=== PATIENT | female | born 1970 | race Caucasian/White ===

== ENCOUNTER → 2016-10-09 10:39 | Outpatient (CLI) | payer MEDICARE ==
[2014-09-08 09:57] VITALS: BMI 25.9
[~2016-10-09 10:39] MED LIST: BACTRIM DS TABL1 TAB PO; BIOTIN5 MG PO; COUMADIN7.5 MG PO; DILANTIN100 MG PO; K-DUR20 MEQ PO; KEPPRA500 MG PO; LASIX20 MG PO; MELATONIN 3 MG1 TAB; MORPHINE IMMEDI30 M1 PO; NEURONTIN 300300 MG PO; PHENOBARBITAL97.2 MG PO; Phenobarbital PO
== END | disposition home or self-care (01) ==
LOC: D.CT 10:39
DX: G43.009 Migraine without aura, not intractable, without status migrainosus (principal); G60.0 Hereditary motor and sensory neuropathy

== ENCOUNTER 2019-09-17 04:09 | Inpatient (IN) | payer OTHER, MEDICARE ==
[2019-09-17] VITALS (7 sets, daily range): BP systolic 97–129; BP diastolic 65–92
[~2019-09-17] VITALS: Ht 177.8 cm; Wt 65.8 kg
[2019-09-17] MEDS ORDERED: PHENOBARBITAL64.8 MG (04:25)
[2019-09-17] MEDS ORDERED: PHENOBARBITAL32.4 MG PO (04:25)
[2019-09-17] MEDS ORDERED: MORPHINE IMMEDI15 MG PO (04:26)
[2019-09-17] MEDS ORDERED: MORPHINE SULFAT30 M4 PO (04:26)
[2019-09-17] MEDS ORDERED: KEFLEX250 MG PO (04:28)
[2019-09-17] MEDS ORDERED: NYSTATIN100000 UN4 PO (04:28)
[2019-09-17] MEDS ORDERED: FUROSEMIDE20 MG PO (04:29)
[2019-09-17] MEDS ORDERED: K-DUR20 MEQ PO (04:30)
[2019-09-17 04:54] LABS: BASOPHILS 0.1 % (0-2); EOSINOPHILS 0.1 % (0-7); HEMATOCRIT 33.3 % (36.0-48.0); HEMOGLOBIN 10.7 g/dL (12-16); IMMATURE GRANULOCYTES 0.3 % (0-5); LYMPHOCYTES 13.5 % (15-50); MCH 38.2 pg (26.0-34.0); MCHC 32.1 g/dL (31.0-37.0); MCV 118.9 fL (80.0-100.0); MEAN PLATELET VOLUME 8.8 fL (7.4-10.4); MONOCYTES 4.3 % (2-11); NEUTROPHILS 81.7 % (40-80); RDW 14.5 % (11.5-14.5); WBC 8.7 10x3/uL (4.8-10.8)
[2019-09-17 05:05] LABS: CALC OSMOLALITY 277 mosm/kg (275-300); CALCIUM 8.1 mg/dL (8.5-10.1); CARBON DIOXIDE 32.8 mmol/L (21.0-32.0); CHLORIDE - SERUM 107 mmol/L (98-107); CREATININE - SERUM 0.5 mg/dL (0.6-1.3); GLUCOSE 94 mg/dL (74-106); PLATELET COUNT 340 10x3/uL (130-400); POTASSIUM - SERUM 3.4 mmol/L (3.5-5.1); SODIUM 140 mmol/L (136-145); UREA NITROGEN 9 mg/dL (7-18); eGFR NON AFRICAN AMERICAN > 90 mL/min (90-120)
[2019-09-17 05:06] LABS: APTT 25.3 SECONDS (22.8-39.4); INR 0.92 (0.85-1.17); PROTIME 12.3 SECONDS (11.6-15.0)
[2019-09-17 05:07] LABS: D-DIMER-QUANTITATIVE 1.53 ug/mLFEU (0.20-0.54)
[2019-09-17 05:19] LABS: ALBUMIN 1.6 g/dL (3.4-5.0); ALKALINE PHOSPHATASE 161 U/L (30-120); ALT (SGPT) 14 U/L (10-68); BILIRUBIN - TOTAL 0.49 mg/dL (0.2-1.3); CREATINE KINASE 36 UL (21-215); PRO BNP 1139 pg/mL (0-125); THYROID STIMULATING HORMONE 2.32 uIU/mL (0.36-3.74); TROPONIN-I 0.019 ng/mL (0.000-0.060)
[2019-09-17 05:28] LABS: C-REACTIVE PROTEIN < 0.2 mg/dL (0.0-0.9); LIPASE 30 U/L (73-393)
[2019-09-17 07:02] LABS: BILIRUBIN 2+ (NEGATIVE); KETONE SMALL mg/dL (NEGATIVE); NITRITE NEGATIVE (NEGATIVE)
[2019-09-17 07:03] LABS: BACTERIA FEW /hpf (NEGATIVE); RED CELLS - URINE 0-5 /hpf (0-5); WHITE CELLS - URINE 0-5 /hpf (NEGATIVE)
--- NOTE | 2019-09-17 08:07 | NUR ---
ARRIVES TO UNIT FROM ER PER STRETCHER, LETHARGIC, PRESENT FOR QUESTIONS, REVIEWED MED LIST, NS SET UP FOR 125 PER R HAND, CONT TO MONITOR
--- NOTE | 2019-09-17 11:20 | NUR ---
SPOKE WITH DR MATOS CONCERNING PT , ADVISED THAT HE IS NOT BELL MAKER BUT WILL SEE PT SUNDAY IF NEEDED, ASK ME TO DISCUSS KEPPRA INCREASE, EEG AND LAB RESULTS WITH ASHUTOSH
--- NOTE | 2019-09-17 12:00 | NUR ---
PT RESTING IN BED, DIFFICULT TO GET PT TO SWALLOW PILLS, CONCERNED THAT PT MAY HAVE HAD ANOTHER STROKE THIS AM, CT WAS DONE IN ER, ASHUTOSH AWARE
--- NOTE | 2019-09-17 16:30 | NUR ---
TAKEN TO MRI PER STRETCHER
--- NOTE | 2019-09-17 17:44 | NUR ---
PT IS A FEEDER IF NO FAMILY IS HERE
[2019-09-18] VITALS: BP 119/76
[2019-09-18 04:00] VITALS: BP 122/66
[2019-09-18 06:20] LABS: BASOPHILS 0.1 % (0-2); EOSINOPHILS 0.3 % (0-7); HEMATOCRIT 32.7 % (36.0-48.0); HEMOGLOBIN 10.6 g/dL (12-16); IMMATURE GRANULOCYTES 0.3 % (0-5); LYMPHOCYTES 28.4 % (15-50); MCH 38.5 pg (26.0-34.0); MCHC 32.4 g/dL (31.0-37.0); MCV 118.9 fL (80.0-100.0); NEUTROPHILS 65.9 % (40-80); PLATELET COUNT 350 10x3/uL (130-400); RBC 2.75 10x6/uL (4.00-5.40); RDW 14.5 % (11.5-14.5); WBC 10.7 10x3/uL (4.8-10.8)
--- NOTE | 2019-09-18 07:47 | NUR ---
I have reviewed this patient and I concur with the Shift Assessment completed by the Licensed Practical Nurse today this shift.
[2019-09-18 08:00] LABS: ALBUMIN 1.5 g/dL (3.4-5.0); ALKALINE PHOSPHATASE 152 U/L (30-120); ALT (SGPT) 11 U/L (10-68); BILIRUBIN - TOTAL 0.49 mg/dL (0.2-1.3); CALC OSMOLALITY 270 mosm/kg (275-300); CALCIUM 7.2 mg/dL (8.5-10.1); CARBON DIOXIDE 25.6 mmol/L (21.0-32.0); CHLORIDE - SERUM 104 mmol/L (98-107); CREATININE - SERUM 0.4 mg/dL (0.6-1.3); GLUCOSE 84 mg/dL (74-106); PROTEIN - SERUM 4.9 g/dL (6.4-8.2); SODIUM 137 mmol/L (136-145); UREA NITROGEN 8 mg/dL (7-18); eGFR NON AFRICAN AMERICAN > 90 mL/min (90-120)
[2019-09-18 08:03] LABS: POTASSIUM - SERUM 2.9 mmol/L (3.5-5.1)
[2019-09-18 09:36] VITALS: BP 142/68
[2019-09-18 12:51] VITALS: BP 126/84
[2019-09-18 12:58] VITALS: BMI 20.8
--- NOTE | 2019-09-18 14:30 | NUR ---
DID AN I & O CATH, GOT 600 CC.
[2019-09-18 15:49] LABS: BILIRUBIN NEGATIVE (NEGATIVE); KETONE NEGATIVE (NEGATIVE); NITRITE NEGATIVE (NEGATIVE); UROBILINOGEN NORMAL (NORMAL)
[2019-09-18 15:54] LABS: EPITHELIAL CELLS 0-5 /hpf (0-5); RED CELLS - URINE NONE SEEN /hpf (0-5); WHITE CELLS - URINE 0-5 /hpf (NEGATIVE)
[2019-09-18 15:55] LABS: BACTERIA MANY /hpf (NEGATIVE)
[2019-09-18 17:53] VITALS: BP 107/68
[2019-09-18 20:00] VITALS: BP 171/96
[2019-09-19] VITALS: BP 117/75
--- NOTE | 2019-09-19 00:30 | NUR ---
PT HAS NOT VOIDED SINCE IN/OUT CATH DONE @ 1430 TODAY. INSERTED 16FR HAMILTON CATHETER FOR URINART RETENTION. RECEIVED BACK 300+ CC'S CONCENTRATED URINE. PT INCONTINENT OF LIQUID BROWN STOOLS. GAVE PT BED BATH AND CHANGED GOWN/LINEN. REINFORCED DRESSING ON LLE AND RIGHT WRIST ABRASIONS THAT WERE COMING OFF. NO OTHER NEEDS. WILL CONTINUE TO MONITOR.
[2019-09-19 04:00] VITALS: BP 120/76
[2019-09-19 06:15] LABS: BASOPHILS 0.2 % (0-2); EOSINOPHILS 0.5 % (0-7); HEMATOCRIT 29.6 % (36.0-48.0); HEMOGLOBIN 9.6 g/dL (12-16); IMMATURE GRANULOCYTES 0.3 % (0-5); LYMPHOCYTES 23.1 % (15-50); MCH 38.4 pg (26.0-34.0); MCHC 32.4 g/dL (31.0-37.0); MCV 118.4 fL (80.0-100.0); MEAN PLATELET VOLUME 8.7 fL (7.4-10.4); NEUTROPHILS 70.9 % (40-80); PLATELET COUNT 297 10x3/uL (130-400); RDW 14.3 % (11.5-14.5)
[2019-09-19 06:31] LABS: WBC 6.2 10x3/uL (4.8-10.8)
[2019-09-19 06:38] LABS: ALBUMIN 1.3 g/dL (3.4-5.0); ALKALINE PHOSPHATASE 131 U/L (30-120); ALT (SGPT) 9 U/L (10-68); BILIRUBIN - TOTAL 0.41 mg/dL (0.2-1.3); CALC OSMOLALITY 277 mosm/kg (275-300); CARBON DIOXIDE 22.9 mmol/L (21.0-32.0); CHLORIDE - SERUM 110 mmol/L (98-107); CREATININE - SERUM 0.4 mg/dL (0.6-1.3); GLUCOSE 83 mg/dL (74-106); PROTEIN - SERUM 4.5 g/dL (6.4-8.2); SODIUM 141 mmol/L (136-145); UREA NITROGEN 6 mg/dL (7-18); eGFR NON AFRICAN AMERICAN > 90 mL/min (90-120)
[2019-09-19 09:43] VITALS: BP 122/80
--- NOTE | 2019-09-19 10:04 | NUR ---
Rehab Note- Acute Inpatient Rehab prescreen order received. The patient has [employer] insurance and will requie a PreAuth. She has pending PT, OT, & ST Evals. Will await evals & start PreAuth process at that time if appropriate for inpatient acute rehab. Will follow at this time. Thank you for this referral! Cyndy Smith RN Clinical Liaison, [facility] Rehab
--- NOTE | 2019-09-19 10:37 | MORECARE ---
CASE MANAGEMENT DISCHARGE SUMMARY PATIENT: KAVON GOLDSMITH UNIT: [id number] ADM DATE: 09/17/19 AGE: 48 : 70 SEX: F ROOM/BED: D.2205 AUTHOR: ROBERT MCCONNELL PHYSICIAN: REFERRING PHYSICIAN: MARLENE RIBERA MD DATE OF SERVICE: 09/19/19 Discharge Plan Patient Name: KAVON GOLDSMITH Facility: [facility]:[place] : 1970 Planned Disposition: Inpatient Rehab Anticipated Discharge Date: Discharge Date: Expected LOS: Initial Reviewer: [email or web address] Initial Review Date: 09/17/2019 Generated: 09/19/19 11:37 am Patient Name: KAVON GOLDSMITH Page [id number] at 1037 All edits/amendments must be made on the electronic document DICTATION DATE: 09/19/19 1037 WAREHOUSE DISTRIBUTION SPECIALIST: SOFI 09/19/19 [facility] RPT#: [id number] DC DATE: STATUS: ADM IN [facility] [address] [place] [address] END OF REPORT
--- NOTE | 2019-09-19 10:47 | MORECARE ---
CASE MANAGEMENT DISCHARGE SUMMARY PATIENT: KAVON GOLDSMITH UNIT: [id number] ADM DATE: 09/17/19 AGE: 48 : 70 SEX: F ROOM/BED: D.2205 AUTHOR: ROBERT MCCONNELL PHYSICIAN: REFERRING PHYSICIAN: MARLENE RIBERA MD DATE OF SERVICE: 09/19/19 Discharge Plan Patient Name: KAVON GOLDSMITH [facility] : 1970 Planned Disposition: Inpatient Rehab Anticipated Discharge Date: Discharge Date: Expected LOS: Initial Reviewer: [email or web address] Initial Review Date: 09/17/2019 Generated: 09/19/19 11:47 am DCPIA - Discharge Planning Initial Assessment Updated by [email or web address]: Ericka Espinosa on 09/19/19 10:37 am * Is the patient Alert and Oriented? Yes * How many steps to enter\exit or inside your home? * PCP JANNETH * Preadmission Environment Home Alone * ADLs Partial Dependent * Partial ADLs (Assistance needed) Ambulation Medication Management Toileting * Equipment Bedside Commode Grab Bars Power Chair or Electric Scooter Rolling Walker Shower Chair Walker Wheelchair * Other Equipment SERVICE DOG * List name and contact numbers for known caregivers / representatives who currently or will assist patient after discharge: BINU GOLDSMITH- [phone] * Verbal permission to speak to the caregivers and representatives has been obtained from the patient. Yes * Additional services required to return to the preadmission environment? Yes * Has this patient been hospitalized within the prior 30 days at any hospital? Yes Last DP export: 09/19/19 9:37 am Patient Name: KAVON GOLDSMITH Page [id number] at 1047 All edits/amendments must be made on the electronic document DICTATION DATE: 09/19/19 1047 PAIRING MACHINE OPERATOR: SOFI 09/19/19 1047 RPT#: [id number] DC DATE: STATUS: ADM IN [facility] [address] [place] [address] END OF REPORT
--- NOTE | 2019-09-19 11:05 | MORECARE ---
CASE MANAGEMENT DISCHARGE SUMMARY PATIENT: KAVON GOLDSMITH UNIT: [id number] ADM DATE: 09/17/19 AGE: 48 : 70 SEX: F ROOM/BED: D.2205 AUTHOR: ENEDINADOC PHYSICIAN: REFERRING PHYSICIAN: MARLENE RIBERA MD DATE OF SERVICE: 09/19/19 Discharge Plan Patient Name: KAVON GOLDSMITH Facility: [facility]:[place] : 1970 Planned Disposition: Inpatient Rehab Anticipated Discharge Date: Discharge Date: Expected LOS: Initial Reviewer: [email or web address] Initial Review Date: 09/17/2019 Generated: 09/19/19 12:04 pm Comments DCP- Discharge Planning Updated by [email or web address]: Ericka Espinosa on 09/19/19 10:[address] Patient Name: KAVON GOLDSMITH Admission Status: ER Accout number: [id number] Admission Date: 09-17-2019 : 1970 Admission Diagnosis: Attending: PETER Current LOS: 2 Anticipated DC Date: Planned Disposition: Inpatient Rehab Primary Insurance: [employer] Discharge Planning Comments: CM spoke with patients /ex- about discharge plan. He stated that they have built a 400x 12 ft cabin on her parents property where she can be independent with her care. She has a electric wheelchair, walker, scooter, service dog. Per her she started having seizures in 2013 after she had a stroke. He stated that her legs were very weak. He said that she did walk at home with her walker. He has made her cabin accessible for her with rails on her toilet. Her home address is [address] [place] [address] in [place] [address]. her cell number is [phone]. He would like her to go to inpatient rehab here at [facility]. He said he did not think that she would go to a care home home. He would like her to go to [facility] after inpatient rehab if needed. CM will speak to patient to see what her plan is. Binu was very helpful and seem like he is a good support system for her. Material Requirements Planning Manager: Ericka Espinosa DCPIA - Discharge Planning Initial Assessment Updated by [email or web address]: Ericka Espinosa on 09/19/19 10:37 am * Is the patient Alert and Oriented? Yes * How many steps to enter\exit or inside your home? * PCP JANNETH * Preadmission Environment Home Alone * ADLs Partial Dependent * Partial ADLs (Assistance needed) Ambulation Medication Management Toileting * Equipment Bedside Commode Grab Bars Power Chair or Electric Scooter Rolling Walker Shower Chair Walker Wheelchair * Other Equipment SERVICE DOG * List name and contact numbers for known caregivers / representatives who currently or will assist patient after discharge: BINU GOLDSMITH- [phone] * Verbal permission to speak to the caregivers and representatives has been obtained from the patient. Yes * Additional services required to return to the preadmission environment? Yes * Has this patient been hospitalized within the prior 30 days at any hospital? Yes Last DP export: 09/19/19 9:47 am Patient Name: KAVON GOLDSMITH Page [phone] at 1105 All edits/amendments must be made on the electronic document DICTATION DATE: 09/19/19 1104 PIPE CLEANING MACHINE OPERATOR: SOFI 09/19/19 1104 RPT#: [id number] DC DATE: STATUS: ADM IN [facility] [address] [place] [address] END OF REPORT
--- NOTE | 2019-09-19 12:27 | NUR ---
PATIENT IN BED RESTING. USES MOUTH SWABS NEEDED TO MOISTEN MOUTH. AT BEDSIDE. USING SUCTION NEEDED. DENIES PAIN OR NEEDS AT THIS TIME. BED LOW POSITION. CALL LIGHT IN REACH. WILL CONTINUE TO MONITOR.
[2019-09-19 13:29] VITALS: BP 133/85
--- NOTE | 2019-09-19 14:17 | NUR ---
16FRENCH NG TUBE PLACED PER MD ORDERS TO LEFT NARE. PLACEMENT MEASURED, KY PLACED TO TIP OF TUBE, TUBE MARKED. PLACEMENT CHECKED BELOW XYPHOID PROCESS WITH AIR, AIR HEARD. CONTACTED XRAY FOR PLACEMENT VERIFICATION OF NG TUBE. PT MACARIO WELL.
--- NOTE | 2019-09-19 14:45 | NUR ---
PATIENT TO MRI PROCEDURE VIA WHEELCHAIR.
--- NOTE | 2019-09-19 15:35 | NUR ---
PATIENT BACK TO UNIT VIA BED. TELEMETRY REATTATCHED. WILL CONTINUE TO MONITOR.
[2019-09-19 17:17] VITALS: BP 125/85
[2019-09-19 22:06] VITALS: BP 158/57
[2019-09-20] VITALS: BP 124/76
[2019-09-20 04:00] VITALS: BP 113/72
[2019-09-20 06:32] LABS: BASOPHILS 0.1 % (0-2); EOSINOPHILS 0.7 % (0-7); HEMATOCRIT 32.1 % (36.0-48.0); HEMOGLOBIN 10.1 g/dL (12-16); IMMATURE GRANULOCYTES 0.2 % (0-5); LYMPHOCYTES 17.1 % (15-50); MCH 38.3 pg (26.0-34.0); MCHC 31.5 g/dL (31.0-37.0); MEAN PLATELET VOLUME 8.8 fL (7.4-10.4); MONOCYTES 4.3 % (2-11); NEUTROPHILS 77.6 % (40-80); PLATELET COUNT 309 10x3/uL (130-400); RBC 2.64 10x6/uL (4.00-5.40); RDW 14.4 % (11.5-14.5)
[2019-09-20 06:51] LABS: MCV 121.6 fL (80.0-100.0); WBC 8.2 10x3/uL (4.8-10.8)
[2019-09-20 07:07] LABS: ALBUMIN 1.4 g/dL (3.4-5.0); ALKALINE PHOSPHATASE 138 U/L (30-120); ALT (SGPT) 10 U/L (10-68); BILIRUBIN - TOTAL 0.47 mg/dL (0.2-1.3); CALC OSMOLALITY 279 mosm/kg (275-300); CALCIUM 7.3 mg/dL (8.5-10.1); CARBON DIOXIDE 20.2 mmol/L (21.0-32.0); CHLORIDE - SERUM 112 mmol/L (98-107); CREATININE - SERUM 0.5 mg/dL (0.6-1.3); GLUCOSE 79 mg/dL (74-106); POTASSIUM - SERUM 3.1 mmol/L (3.5-5.1); PROTEIN - SERUM 4.6 g/dL (6.4-8.2); SODIUM 142 mmol/L (136-145); UREA NITROGEN 7 mg/dL (7-18); eGFR NON AFRICAN AMERICAN > 90 mL/min (90-120)
--- NOTE | 2019-09-20 08:45 | NUR ---
PT LAYING IN BED, EYES CLOSED, EVEN RESPIRATIONS. PIV IN RIGHT AC, PATENT, NO REDNESS OR SWELLING. NGT IN PLACE, PATENT. TELEMETRY IN PLACE, 100 SR. LEFT ARM WEAKNESS, BILAT TOE AMPUTATIONS. LOWER EXTREMITY BILAT ABRASIONS. RIGHT WRIST SKIN TEAR. HAMILTON IN PLACE, PATENT, SMALL AMOUNT OF OUTPUT, 100ML CONCENTRATED URINE. BED LOW, RAILS X2. CL IN REACH. WILL CONTINUE TO MONITOR.
[2019-09-20 09:49] VITALS: BP 113/79
[2019-09-20 11:09] LABS: CHOL - HDL RATIO 1.7 ratio (2.3-4.1); LDL-HDL RATIO 0.5 ratio (1.5-3.5)
--- NOTE | 2019-09-20 12:15 | NUR ---
PT SPOUSE ASKED NGT, EDUCATED PT AND SPOUSE ON NEED, VERBALIZED UNDRSTANDING.
[2019-09-20 13:58] VITALS: BP 119/53
--- NOTE | 2019-09-20 17:20 | NUR ---
CHANGED DRSG ON BILAT LOWER EXTREMITIES. WOUND BEDS RED WITH SMALL AMOUNT OF YELLOW GREENISH DISCHARGE. CLEANED WITH WOUND CLEANSER, APPLIED VASOLINE GAUZE AND 4X4. PT TOLERATED WELL. CL IN REACH, BED LOW. WILL CONTINUE TO MONITOR.
[2019-09-20 18:04] VITALS: BP 120/82
--- NOTE | 2019-09-20 20:00 | NUR ---
PT ALERT & ORIENTED. PT ASKED FOR MOISTENED ORAL SPONGES. PT COUGHED UP THICK YELLOWISH/CLEAR SPUTUM. SUCTIONED WITH YAUNKER. TURNED PT TO RIGHT SIDE. GAVE SCHEDULED MEDS. COMPLETE ASSESSMENT PER FLOW-SHEET. WILL CONTINUE TO MONITOR.
[2019-09-20 20:56] VITALS: BP 187/73
[2019-09-21 00:01] VITALS: BP 107/57
--- NOTE | 2019-09-21 03:30 | NUR ---
PT CALLED SUB PLANT MANAGER LIGHT. REQUESTED COLA FLAVORED ORAL SPONGES. PT STATES SHE WANTS SWALLOWING TO BE EVALUATED AGAIN. LEFT ARM STIFFNESS APPEARS TO BE RESOLVING. PT PERFORMED ROM EXCERCISES RAISING, BENDING AND EXTENDING LEFT ARM AND FINGERS - ONLY LEFT HAND HEALTH EDUCATOR IS STILL VERY WEAK. PT C/O LEFT ARM, BACK AND HEADACHE PAIN. GAVE MORPHINE 1 MG IV PUSH. NO OTHER NEEDS. WILL REASSESS AND CONTINUE TO MONITOR.
--- NOTE | 2019-09-21 08:10 | NUR ---
SPOKE WITH PATIENT ABOUT REFUSAL OF AM LABS. SHE IS NOT AGREEABLE TO LET THEM DRAW LAB WORK.SPOKE WITH PACO HARRELL.
[2019-09-21 08:43] VITALS: BP 127/85
--- NOTE | 2019-09-21 09:22 | NUR ---
IV RIGHT ARM TENDER AND RED. IV DCD WITH CATH TIP INTACT. IV SITED TO RIGHT CHEST X2 STICKS ASEPTIC TECH,20G.
[2019-09-21 13:07] LABS: BASOPHILS 0.2 % (0-2); EOSINOPHILS 0.6 % (0-7); HEMATOCRIT 30.9 % (36.0-48.0); IMMATURE GRANULOCYTES 0.4 % (0-5); LYMPHOCYTES 18.9 % (15-50); MCH 38.5 pg (26.0-34.0); MCHC 32.4 g/dL (31.0-37.0); MEAN PLATELET VOLUME 8.8 fL (7.4-10.4); NEUTROPHILS 74.9 % (40-80); PLATELET COUNT 308 10x3/uL (130-400); WBC 8.2 10x3/uL (4.8-10.8)
[2019-09-21 13:11] LABS: MCV 118.8 fL (80.0-100.0)
[2019-09-21 13:17] VITALS: BP 138/81
[2019-09-21 13:35] LABS: ALBUMIN 1.3 g/dL (3.4-5.0); ALKALINE PHOSPHATASE 128 U/L (30-120); ALT (SGPT) 8 U/L (10-68); BILIRUBIN - TOTAL 0.38 mg/dL (0.2-1.3); CALC OSMOLALITY 290 mosm/kg (275-300); CALCIUM 7.2 mg/dL (8.5-10.1); CARBON DIOXIDE 20.8 mmol/L (21.0-32.0); CREATININE - SERUM 0.4 mg/dL (0.6-1.3); GLUCOSE 80 mg/dL (74-106); PROTEIN - SERUM 4.3 g/dL (6.4-8.2); SODIUM 148 mmol/L (136-145); UREA NITROGEN 6 mg/dL (7-18); eGFR NON AFRICAN AMERICAN > 90 mL/min (90-120)
[2019-09-21 13:47] LABS: CHLORIDE - SERUM 116 mmol/L (98-107); POTASSIUM - SERUM 2.9 mmol/L (3.5-5.1)
[2019-09-21 18:52] VITALS: BP 140/65
[2019-09-21 22:01] VITALS: BP 138/93
[2019-09-22 03:55] VITALS: BP 121/72
[2019-09-22 07:19] LABS: ALBUMIN 1.3 g/dL (3.4-5.0); ALKALINE PHOSPHATASE 124 U/L (30-120); ALT (SGPT) 9 U/L (10-68); BILIRUBIN - TOTAL 0.37 mg/dL (0.2-1.3); CALC OSMOLALITY 287 mosm/kg (275-300); CALCIUM 7.4 mg/dL (8.5-10.1); CHLORIDE - SERUM 115 mmol/L (98-107); CREATININE - SERUM 0.4 mg/dL (0.6-1.3); GLUCOSE 74 mg/dL (74-106); POTASSIUM - SERUM 3.1 mmol/L (3.5-5.1); PROTEIN - SERUM 4.5 g/dL (6.4-8.2); SODIUM 147 mmol/L (136-145); UREA NITROGEN 5 mg/dL (7-18); eGFR NON AFRICAN AMERICAN > 90 mL/min (90-120)
[2019-09-22 07:34] LABS: BASOPHILS 0.3 % (0-2); HEMATOCRIT 31.6 % (36.0-48.0); HEMOGLOBIN 10.1 g/dL (12-16); IMMATURE GRANULOCYTES 0.3 % (0-5); MCH 37.7 pg (26.0-34.0); MCV 117.9 fL (80.0-100.0); MONOCYTES 6.3 % (2-11); NEUTROPHILS 66.1 % (40-80); PLATELET COUNT 316 10x3/uL (130-400); RBC 2.68 10x6/uL (4.00-5.40); RDW 13.9 % (11.5-14.5)
[2019-09-22 07:46] LABS: WBC 5.9 10x3/uL (4.8-10.8)
--- NOTE | 2019-09-22 08:03 | NUR ---
SHE IS SLEEPY THIS MORNING. HER SON IS AT THE BEDSIDE. SHE IS CONFUSED AT TIMES. AGREES TO DO SOMTHING, BUT THEN DOES SOMETHING ELSE OR SAYS SOMETHING ELSE. THE CALL LIGHT IS WITHIN REACH IT AND THE BED ALARM IS ON.
[2019-09-22 09:10] VITALS: BP 136/70
[2019-09-22 11:54] VITALS: BP 133/71
--- NOTE | 2019-09-22 12:14 | NUR ---
OT NOTE: PT DOING BETTER TODAY. SON AT BEDSIDE. OT AND PT INITIALLY PERFORMED GENTLE PROM TO B LES AND UES.. PT REPORTED THAT IT FELT SO MUCH BETTER TO HAVE JOINTS RANGED. PT WANTING TO SIT UP ON EOB AND WAS ABLE TO PERFORM WITH MOD ASSIST X 2.. SITTING BALANCE WAS FAIR+ AND EXHIBITED MUCH MORE TRUNK STRENGTH/CONTROL THAN LAST WEEK. ABLE TO STAND WITH MOD ASSIST X 2 BUT BECAME VERY FEARFUL AND YELLING OUT ALL OF A SUDDEN SHE FELT LIKE SHE WAS GOING TO FALL. EXPLAINED TO PT THAT WE WOULD NOT ALLOW HER TO FALL. PT RESTED AND THEN WE WERE ABLE TO TRANSFER PT TO CHAIR WITH MOD ASSIST X 2. PT WITH LIMITED FUNCTIONAL USE OF L HAND, BUT IMPROVED BELT SEWER STRENGTH IN R HAND. PT TOLERATED SITTING UP IN CHAIR FOR APPROX 3O MIN.. REPORTED THAT SHE HAD TO LIE DOWN SHE WAS HURTING. SUMANTH CHOW, OTR/L [phone]
--- NOTE | 2019-09-22 13:37 | NUR ---
NEW IV TO THE LEFT UPPER ARM 22 G. THE CALL LIGHT IS WITHIN REACH.
--- NOTE | 2019-09-22 14:31 | NUR ---
Nutrition follow-up: Pt NPO per speech pathologist; evaluated again today. Pt needds PEG placed for nutrition 2/2 dysphagia. Labs reviewed Wt: 145# When/if PEG placed, recommend starting TwoCal HN @ 15 ml/hr with gradual increase to goal rate of 45 ml/hr with 30 ml H2O flush q hour. RDN following.
[2019-09-22 16:22] VITALS: BP 152/77
[2019-09-22 20:00] VITALS: BP 119/64
--- NOTE | 2019-09-23 02:22 | NUR ---
REC'D CHGE OF SHIFT WALKING ROUNDS EYES CLOSED RESP. DEEP AND EVEN.DRSGS LOWER EXT BILAT.HAMILTON PATENT AND DRAINING CLOUDY YELLOW URINE, NPO ORDERED WILL CONTINUE TO MONITOR FOR ANY CHGES AND FOLLOW CURRENT PLAN OF CARE.BED ARMED
[2019-09-23 04:00] VITALS: BP 125/74
[2019-09-23 06:01] LABS: BASOPHILS 0.1 % (0-2); EOSINOPHILS 0.6 % (0-7); HEMATOCRIT 34.7 % (36.0-48.0); HEMOGLOBIN 11.1 g/dL (12-16); IMMATURE GRANULOCYTES 0.4 % (0-5); LYMPHOCYTES 23.2 % (15-50); MCH 37.9 pg (26.0-34.0); MCV 118.4 fL (80.0-100.0); MEAN PLATELET VOLUME 9.3 fL (7.4-10.4); MONOCYTES 5.1 % (2-11); NEUTROPHILS 70.6 % (40-80); PLATELET COUNT 341 10x3/uL (130-400); RBC 2.93 10x6/uL (4.00-5.40); RDW 13.8 % (11.5-14.5); WBC 6.7 10x3/uL (4.8-10.8)
[2019-09-23 06:19] LABS: ALBUMIN 1.5 g/dL (3.4-5.0); ALKALINE PHOSPHATASE 135 U/L (30-120); ALT (SGPT) 10 U/L (10-68); BILIRUBIN - TOTAL 0.38 mg/dL (0.2-1.3); CALCIUM 7.4 mg/dL (8.5-10.1); CARBON DIOXIDE 20.8 mmol/L (21.0-32.0); CHLORIDE - SERUM 114 mmol/L (98-107); CREATININE - SERUM 0.4 mg/dL (0.6-1.3); PROTEIN - SERUM 4.7 g/dL (6.4-8.2); SODIUM 147 mmol/L (136-145); UREA NITROGEN 4 mg/dL (7-18); eGFR NON AFRICAN AMERICAN > 90 mL/min (90-120)
[2019-09-23 06:20] LABS: CALC OSMOLALITY 286 mosm/kg (275-300); GLUCOSE 66 mg/dL (74-106); POTASSIUM - SERUM 3.8 mmol/L (3.5-5.1)
--- NOTE | 2019-09-23 07:59 | NUR ---
FRESH LINENS PROVIDED UPON REPOSITIONING PATIENT. IT WAS DISCOVERED THAT SHE WAS WET. CO OF PAIN. FAMILY HERE AT THIS TIME TO VISIT. PT CONCERNED ABOUT SON MILAGROS. CL IN REACH. BED ALARM ON. WCTM
[2019-09-23 08:00] VITALS: BP 124/43
--- NOTE | 2019-09-23 10:06 | NUR ---
PT MOTHER REQUESTED AND RECEIVED SOME WASH CLOTHS TO "WASH HER UP." BED ALARM ON. CL IN REACH. NO FURTHER NEEDS AT THIS TIME. WCTM
--- NOTE | 2019-09-23 12:12 | NUR ---
PT CHECKED TO SEE IF HAMILTON HAD LEAKED. IT HAD NOT. POSITIONED TO HER LEFT SIDE SITTING UP LEANING UP AGAINST THE SIDE OF THE BED. CL IN REACH. MOTHER IN ROOM. BED ALARM ON. WCTM
[2019-09-23 13:31] VITALS: BP 123/77
--- NOTE | 2019-09-23 14:56 | NUR ---
OT NOTE: PT LIEING IN BED. MOM AT BEDSIDE.. MOM REPORTS PTS LEGS ARE HURTING VERY BAD TODAY. INCREASED AMOUNT OF TIME REQUIRED FOR TMT PT WAS VERY VERBAL AND CONTINUED TO REQUIRE FREQUENT CUEING TO STAY ON TASK. BED MOB WITH MOD ASSIST AND EXT TIME REQUIRED. EOB SITTING BALANCE WAS FAIR+; ATTEMPTED SEVERAL SIT TO STAND EXS TODAY, HOWEVER, PT ONLY ABLE TO STAND FOR SHORT AMOUNT OF TIME, THEN SHE BECAME VERY FEARFUL AND TEARFUL. STATED THAT SHE WAS SCARED AND THAT HER KNEES WERE HURTING. ASSISTED PT BACK IN BED. PRACTICED BED MOB WITH MOD ASSIST X 2; MOD ASSIST X 2 TO REPOSITION UP IN BED. PT UNABLE TO TAKE STEPS TODAY. SUMANTH CHOW, OTR/L [phone]
--- NOTE | 2019-09-23 16:32 | NUR ---
OT NOTE: PT COMPLETED SUPINE TO SIT WITH MOD/MAX A X2. PT COMPLETED EOB SITTING WITH CGA. PT COMPLETED SIT TO STAND WITH MOD A X2. PT COMPLETED STANDING WITH MOD AX2. PT COMPLETED KAITLYNN SHOES WITH MAX A. 1-132 THANK YOU,ARASH SOTO
[2019-09-23 16:46] VITALS: BP 130/70
[2019-09-23 18:31] VITALS: Ht 177.8 cm; Wt 65.8 kg
--- NOTE | 2019-09-23 19:46 | NUR ---
DRESSING CHANGE TO BILATERAL LOWER EXTREMITIES COMPLETED. TOLERATED WELL. ADAPTIC APPLIED COVERED WITH KERLEX. PAD CHANGED. POSTITIONED TO RIGHT SIDE. CL IN REACH. WCTM
[2019-09-23 20:00] VITALS: BP 122/75
[2019-09-24 04:00] VITALS: BP 126/87
[2019-09-24 05:17] LABS: BASOPHILS 0.2 % (0-2); EOSINOPHILS 0 % (0-7); HEMATOCRIT 34.4 % (36.0-48.0); HEMOGLOBIN 11.2 g/dL (12-16); IMMATURE GRANULOCYTES 0.8 % (0-5); LYMPHOCYTES 23.4 % (15-50); MCH 38.1 pg (26.0-34.0); MCHC 32.6 g/dL (31.0-37.0); MEAN PLATELET VOLUME 9.4 fL (7.4-10.4); MONOCYTES 6.3 % (2-11); NEUTROPHILS 69.3 % (40-80); PLATELET COUNT 357 10x3/uL (130-400); RBC 2.94 10x6/uL (4.00-5.40); RDW 13.6 % (11.5-14.5); WBC 6.5 10x3/uL (4.8-10.8)
[2019-09-24 06:04] LABS: ALBUMIN 1.4 g/dL (3.4-5.0); ALKALINE PHOSPHATASE 131 U/L (30-120); ALT (SGPT) 11 U/L (10-68); BILIRUBIN - TOTAL 0.49 mg/dL (0.2-1.3); CALCIUM 7.2 mg/dL (8.5-10.1); CHLORIDE - SERUM 113 mmol/L (98-107); CREATININE - SERUM 0.4 mg/dL (0.6-1.3); PROTEIN - SERUM 4.8 g/dL (6.4-8.2); SODIUM 147 mmol/L (136-145); UREA NITROGEN 3 mg/dL (7-18); eGFR NON AFRICAN AMERICAN > 90 mL/min (90-120)
[2019-09-24 06:38] LABS: CALC OSMOLALITY 286 mosm/kg (275-300)
[2019-09-24 06:39] LABS: POTASSIUM - SERUM 2.8 mmol/L (3.5-5.1)
[2019-09-24 06:40] LABS: GLUCOSE 62 mg/dL (74-106)
--- NOTE | 2019-09-24 07:19 | NUR ---
I have reviewed this patient and I concur with the Shift Assessment completed by the Licensed Practical Nurse today this shift.
[2019-09-24 10:09] VITALS: BP 131/73
--- NOTE | 2019-09-24 13:01 | NUR ---
OT NOTE: PT IN AN ALMOST MANIC MOOD TODAY. VERY LENGTHY STORIES WITH INABILITY TO REDIRECT. FREQ CUES TO STAY ON TASK, HOWEVER, VERY DIFFICULT TO GET PT TO STOP TALKING IN ORDER TO PERFORM THERAPEUTIC ACTIVITIES. SPEECH IS INTELIGABLE, BUT REQUIRES CUES TO WIPE MOUTH DUE TO CONTINUED DIFFICULIES MANAGING SECREATIONS. MOD ASSIST FOR SUPINE TO SIT; ONCE PT IS POSITIONED TO EOB, HER STATIC SITTING BALANCE IS GOOD. ABLE TO PERFORM UE/LE ROM EXS. ABLE TO WASH FACE WITH CLOTH AND R HAND. LIMITED IN FURTHER GROOMING TASKS. ATTEMPTED SIT TO STAND WITH ASSIST OF PT REQUIRING MIN/MOD ASSIST X 2.. PT UNABLE TO TOLERATE STANDING FOR GREATER THAN 10-15 SEC EACH TIME. PT BECOMES VERY LABILE WHILE STANDING AND STATES THAT SHE WANTS TO PERFORM BETTER AND DOESNT WANT TO DISAPPOINT ANYONE. PRACTICED BED MOB INCLUDING ROLLING SIDE TO SIDE AND SCOOTING UP IN BED. SUMANTH CHOW, OTR/L [phone]
--- NOTE | 2019-09-24 13:28 | NUR ---
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
[2019-09-24 13:36] VITALS: BP 126/79
[2019-09-24 18:41] VITALS: BP 124/59
[2019-09-24 20:00] VITALS: BP 137/72
[2019-09-25 04:00] VITALS: BP 176/107
[2019-09-25 08:22] LABS: ALBUMIN 1.6 g/dL (3.4-5.0); ALKALINE PHOSPHATASE 141 U/L (30-120); ALT (SGPT) 10 U/L (10-68); BILIRUBIN - TOTAL 0.42 mg/dL (0.2-1.3); CALCIUM 7.8 mg/dL (8.5-10.1); CARBON DIOXIDE 20.1 mmol/L (21.0-32.0); CHLORIDE - SERUM 108 mmol/L (98-107); CREATININE - SERUM 0.4 mg/dL (0.6-1.3); SODIUM 141 mmol/L (136-145); UREA NITROGEN 3 mg/dL (7-18); eGFR NON AFRICAN AMERICAN > 90 mL/min (90-120)
[2019-09-25 08:23] LABS: CALC OSMOLALITY 275 mosm/kg (275-300); GLUCOSE 66 mg/dL (74-106); POTASSIUM - SERUM 3.9 mmol/L (3.5-5.1)
[2019-09-25 08:24] LABS: BASOPHILS 0.3 % (0-2); EOSINOPHILS 1.2 % (0-7); HEMATOCRIT 36.7 % (36.0-48.0); HEMOGLOBIN 12.2 g/dL (12-16); IMMATURE GRANULOCYTES 0.4 % (0-5); LYMPHOCYTES 25.3 % (15-50); MCH 38.7 pg (26.0-34.0); MCHC 33.2 g/dL (31.0-37.0); MCV 116.5 fL (80.0-100.0); MEAN PLATELET VOLUME 9.5 fL (7.4-10.4); NEUTROPHILS 66.8 % (40-80); PLATELET COUNT 368 10x3/uL (130-400); RBC 3.15 10x6/uL (4.00-5.40); RDW 13.6 % (11.5-14.5); WBC 7.7 10x3/uL (4.8-10.8)
[2019-09-25 10:13] VITALS: BP 117/84
--- NOTE | 2019-09-25 12:44 | NUR ---
PATIENT NOTED HAVING SEVERAL SCRATCHED SCABBY AREAS ON BILATERAL ARMS, BOTH LOWER EXTREMITIES BANDAGED WITH SCRATCHY POZO ON LEGS, NO SCD'S PLACED DUE TO THESE AREAS AND HX OF DVT, SADIE.
--- NOTE | 2019-09-25 13:42 | NUR ---
RIGHT IJ CVL PLACED BY ANESTHESIA, SADIE ABRAMS CRNA.
[2019-09-25 14:27] VITALS: BP 118/74
[2019-09-25 20:00] VITALS: BP 133/61
--- NOTE | 2019-09-25 20:00 | NUR ---
PATIENT RESTING IN BED WITH EYES CLOED. NO S/S OF ACUTE DISTRESS. NO C/O AT THIS TIME. PATIENT HAS RIGHT IJ, 1/2 NORMAL SALINE @ 100 ML/HR. IV IS PATENT WITHOUT REDENSS, SWELLING, OR TENDERNESS. PATIENT HAS HAMILTON. PATIENT HAS G-TUBE. CALL LIGHT WITHIN REACH. BED ALARM ON. WILL CONTINUE TO MONITOR.
[2019-09-26 04:00] VITALS: BP 120/71
--- NOTE | 2019-09-26 05:15 | NUR ---
I have reviewed this patient and I concur with the Shift Assessment completed by the Licensed Practical Nurse today this shift.
[2019-09-26 07:08] LABS: BASOPHILS 0 % (0-2); EOSINOPHILS 0 % (0-7); HEMATOCRIT 35.6 % (36.0-48.0); HEMOGLOBIN 11.4 g/dL (12-16); IMMATURE GRANULOCYTES 0.2 % (0-5); LYMPHOCYTES 7.7 % (15-50); MCH 37.7 pg (26.0-34.0); MCV 117.9 fL (80.0-100.0); MEAN PLATELET VOLUME 9.3 fL (7.4-10.4); MONOCYTES 3.6 % (2-11); NEUTROPHILS 88.5 % (40-80); PLATELET COUNT 303 10x3/uL (130-400); RBC 3.02 10x6/uL (4.00-5.40); RDW 13.9 % (11.5-14.5)
[2019-09-26 07:12] LABS: WBC 12.7 10x3/uL (4.8-10.8)
[2019-09-26 07:17] LABS: ALBUMIN 1.2 g/dL (3.4-5.0); ALKALINE PHOSPHATASE 111 U/L (30-120); ALT (SGPT) 11 U/L (10-68); BILIRUBIN - TOTAL 0.32 mg/dL (0.2-1.3); CALC OSMOLALITY 284 mosm/kg (275-300); CALCIUM 7.3 mg/dL (8.5-10.1); CHLORIDE - SERUM 112 mmol/L (98-107); CREATININE - SERUM 0.4 mg/dL (0.6-1.3); GLUCOSE 83 mg/dL (74-106); PROTEIN - SERUM 4.4 g/dL (6.4-8.2); SODIUM 145 mmol/L (136-145); UREA NITROGEN 3 mg/dL (7-18); eGFR NON AFRICAN AMERICAN > 90 mL/min (90-120)
[2019-09-26 10:59] VITALS: BP 105/47
--- NOTE | 2019-09-26 11:25 | NUR ---
CONTACTED DR MATOS DUE TO PT AND FAMILY REPORTING SEIZURE ACTIVITY. INFORMED DR MATOS OF PT REPORT OF TASTING METAL TASTE IN MOUTH, GARBLED SPEECH AND INCOHERENT AT TIMES. DR. MATOS REPORTS THAT ASHUTOSH JACKSON APN AND HE HAD DISCUSSED LAST WEEK TO INITIATE DEPACON IV. INFORMED DR. MATOS THAT THERE IS NO ORDERS SEEN FOR DEPACON, NOR ANY DEPACON BEING ADMINISTERED AT THIS TIME. HE THEN VOICES TO INITIATE DEPACON IV 75OMG @ 50MG A MINUTE FOLLOWED BY MAINTENANCE DOSE OF 250MG IV EVERY 8 HOURS. AFTER FIRST MAINTENANCE IS GIVEN THEN CAN DECREASE PHENOBARB DOSING TO 60MG IV EVERY 12 HOURS FOR 3 DAYS, THEN 60 MG ONCE A DAY FOR 3 DAYS THEN DC. CONTINUING IV DEPAKOTE 250MG IV EVERY 8 HOURS AND LEAVING KEPPRA DOSING PREVIOUSLY ORDERED. CONTACTED LARRY PINEDO REGARDING MATTER, SHE VOICES THAT DR. MATOS WAS MANAGING DEPACON. QUESTIONED IF THERE WERE ANY REASONING FOR DEPACON NOT TO BE USED WITH MEDICAL HX. SHE DENIES ANY AT THIS TIME.
[2019-09-26 13:02] VITALS: BP 119/60
--- NOTE | 2019-09-26 14:05 | NUR ---
OT NOTE: PT LETHARGIC BUT WHEN AROUSED SHE WAS VERY AGITATED. AND DTR IN ROOM ALSO ANGRY ABOUT "EVERYTHING" ..PT REMAINS VERY CONFSUED (MORESO THAN PREVIOUS DAY) PT DEMENDING A MENU..DEMENDING TO SEE SURGEON..DEMANDING TO SEE DR..DEMANDING TO EAT.. DID NOT PERFORM THERAPY ON THIS DATE REPORTED THAT SHE WAS TOO HUNGRY AND IN TOO MUCH PAIN TO DO ANYTHING. SUMANTH CHOW, OTR/L [phone]
[2019-09-26 17:08] VITALS: BP 104/65
[2019-09-26 20:00] VITALS: BP 105/55
--- NOTE | 2019-09-26 20:00 | NUR ---
PATIENT RESTING IN BED. PATIENT IS CONFUSED ORIENTATED TO SLEF ONLY. PATIENT IS VERY ANXIOUS AND WANTS TO EAT AND GO HOME. I EXPLAINED TO PATIENT THAT THIS WAS NO GOING TO HAPPEN. CALL LIGHT WITHI REACH. WILL CONTINUE TO MONITOR.
--- NOTE | 2019-09-26 20:22 | NUR ---
OT NOTE: PT/FAMILY SHARE CONCERNS REGARDING PT CARE. ANTOINE/OTR NOTIFIED NURSING OF CONCERNS. [id number] DANA DESAI COTA
--- NOTE | 2019-09-27 05:00 | NUR ---
I have reviewed this patient and I concur with the Shift Assessment completed by the Licensed Practical Nurse today this shift.
--- NOTE | 2019-09-27 08:24 | NUR ---
RSTING IN BED, NO DISTRESS NOTED, CONFUSED, STATES SHE WILL BE GOING HOME TODAY EVEN IF SHE HAS TO SIGN AMA, FEEDING AT 20, IV PER RIJ, CONT TO MONITOR
[2019-09-27 09:57] VITALS: BP 112/73
[2019-09-27 10:00] LABS: BASOPHILS 0 % (0-2); EOSINOPHILS 0.1 % (0-7); HEMATOCRIT 34.3 % (36.0-48.0); HEMOGLOBIN 11.3 g/dL (12-16); IMMATURE GRANULOCYTES 0.4 % (0-5); MCH 37.7 pg (26.0-34.0); MCHC 32.9 g/dL (31.0-37.0); MEAN PLATELET VOLUME 9.8 fL (7.4-10.4); NEUTROPHILS 88.5 % (40-80); PLATELET COUNT 247 10x3/uL (130-400); RDW 13.5 % (11.5-14.5); WBC 14.1 10x3/uL (4.8-10.8)
[2019-09-27 10:11] LABS: MCV 114.3 fL (80.0-100.0)
[2019-09-27 10:30] LABS: ALKALINE PHOSPHATASE 116 U/L (30-120); ALT (SGPT) 12 U/L (10-68); BILIRUBIN - TOTAL 0.36 mg/dL (0.2-1.3); CALCIUM 7.6 mg/dL (8.5-10.1); CARBON DIOXIDE 24.2 mmol/L (21.0-32.0); CHLORIDE - SERUM 108 mmol/L (98-107); CREATININE - SERUM 0.5 mg/dL (0.6-1.3); GLUCOSE 112 mg/dL (74-106); POTASSIUM - SERUM 3.4 mmol/L (3.5-5.1); PROTEIN - SERUM 4.5 g/dL (6.4-8.2); SODIUM 140 mmol/L (136-145); eGFR NON AFRICAN AMERICAN > 90 mL/min (90-120)
[2019-09-27 10:45] LABS: CALC OSMOLALITY 277 mosm/kg (275-300); UREA NITROGEN 7 mg/dL (7-18)
[2019-09-27 14:09] VITALS: BP 111/85
[2019-09-27 17:04] VITALS: BP 124/70
[2019-09-27 21:00] VITALS: BP 132/69
[2019-09-28 09:01] VITALS: BP 104/70
[2019-09-28 10:33] LABS: BASOPHILS 0 % (0-2); EOSINOPHILS 0.6 % (0-7); HEMATOCRIT 32.6 % (36.0-48.0); HEMOGLOBIN 10.7 g/dL (12-16); IMMATURE GRANULOCYTES 0.3 % (0-5); LYMPHOCYTES 12.9 % (15-50); MCH 37.3 pg (26.0-34.0); MCHC 32.8 g/dL (31.0-37.0); MCV 113.6 fL (80.0-100.0); MEAN PLATELET VOLUME 9.4 fL (7.4-10.4); MONOCYTES 2.8 % (2-11); NEUTROPHILS 83.4 % (40-80); RBC 2.87 10x6/uL (4.00-5.40); RDW 13.4 % (11.5-14.5)
[2019-09-28 10:41] LABS: PLATELET COUNT 184 10x3/uL (130-400); WBC 9.3 10x3/uL (4.8-10.8)
[2019-09-28 11:00] LABS: ALBUMIN 0.8 g/dL (3.4-5.0); ALKALINE PHOSPHATASE 109 U/L (30-120); CALC OSMOLALITY 276 mosm/kg (275-300); CALCIUM 7.3 mg/dL (8.5-10.1); CARBON DIOXIDE 25.6 mmol/L (21.0-32.0); CHLORIDE - SERUM 109 mmol/L (98-107); CREATININE - SERUM 0.4 mg/dL (0.6-1.3); GLUCOSE 112 mg/dL (74-106); MAGNESIUM - SERUM 1.6 mg/dL (1.8-2.4); POTASSIUM - SERUM 3.5 mmol/L (3.5-5.1); PROTEIN - SERUM 4.2 g/dL (6.4-8.2); SODIUM 139 mmol/L (136-145); UREA NITROGEN 6 mg/dL (7-18); eGFR NON AFRICAN AMERICAN > 90 mL/min (90-120)
[2019-09-28 11:01] LABS: ALT (SGPT) 8 U/L (10-68)
--- NOTE | 2019-09-28 11:03 | NUR ---
RESTING IN BED, NO DISTRESS NOTED, DRESSINGS TO LOWER LEGS, IV PER R JUGULAR, G TUBE INFUSING FEEDING AT 40, CONT TO MONITOR
[2019-09-28 12:25] VITALS: BP 143/74
--- NOTE | 2019-09-28 13:25 | NUR ---
OT NOTE: PT VERY ALERT TODAY..ACTING VERY MANIC..CRYING THEN LAUGHING THROUGHOUT ENTIRE TMT SESSION. EXCESSIVE TALKING DURING ENTIRE TMT SESSION. REQUIRED MAX ASSIST X 2 TO ATTEMPT TO GET PT TO EOB, HOWEVER, DURING 3 ATTEMPTS, PT BEGAN YELLING AND STATED THAT SHE COULD NOT DO THIS BECAUSE OF THE PAIN IN HER BACK.. BUT EACH TIME WE ATTEMPTED TO GET HER BACK INTO THE BED, SHE BEGGED TO TRY AGAIN.. HOWEVER, AFTER 3 ATTEMPTS, PT WAS TOLD THAT IF SHE COULD NOT TOLERATE THE PAIN WE WOULD BE UNABLE TO GET HER TO UPRIGHT POSITION. PT REQUESTING TO GET UP TO A WC STATING THAT WE TOLD HER YESTERDAY SHE COULD GET UP INTO THE CHAIR. INFORMED PT THAT THERAPY DID NOT TELL HER THAT AND EXPLAINED THAT IF SHE COULD NOT TOLERATE SITTING UP ON EOB, SHE WOULD NOT BE ABLE TO TOLERATE SITTING IN WC. ATTEMPTED TO ROLL PT FROM SIDE TO SIDE GENTLY IN ORDER TO STRAIGHTEN HER PADS/LINENS AND REPOSITION COMFORTABLY IN BED. HOWEVER, PT CRYING AND GRABBING AT THERAPIST ARMS STATING THAT SHE COULD NOT DO IT BECAUSE OF THE PAIN. TRIED TO POSITION COMFORTABLE POSSIBLE BEFORE EXITING ROOM. PT ASKING THAT WE TRY AGAIN. EXPLAINED THAT WE WOULD ATTEMPT AGAIN TOMORROW. EXTENSIVE TIME REQUIRED WITH THIS PT SHE CONTINUOUSLY TALKS THROUGHOUT ENTIRE TMT SESSION AND IS DIFFICULT TO REDIRECT OR STAY ON TASK. SUMANTH BARKER, OTR/L [phone]
[2019-09-28 16:00] VITALS: BP 120/81
--- NOTE | 2019-09-28 18:26 | NUR ---
CALLED CONCERNED ABOUT PT EDEMA, WANTS LASIX ORDERED BUT NOTED ALBUMIN TO BE LOW, WILL TALK WITH
--- NOTE | 2019-09-28 19:00 | NUR ---
RESTLESS, AGGITATED, AND UPSET WHEN ENTERING THE ROOM. ASSESSMENT PERFORMED AND COMPLETE. ASSISTED PATIENT IN CALLING . PROVIDED SUPPORT AND COMFORT TO PATIENT. SHE REMAINS CONFUSED. CALL LIGHT CLOSE. PHONE CLOSE. CPOC.
[2019-09-28 20:05] VITALS: BP 170/101
--- NOTE | 2019-09-28 20:15 | NUR ---
PATIENT CRYING. STATES SHES IN PAIN. ADMINISTERED PRN PAIN MEDICINE PER ORDER. PATIENT TOLERATED WELL. CALL LIGHT REMAINS CLOSE. CPOC.
--- NOTE | 2019-09-28 22:30 | NUR ---
RESTING WITH NO SIGNS OR SYMPTOMS OF DISTRESS AT THIS TIME. CALL LIGHT REMAINS CLOSE. CPOC.
[2019-09-29] VITALS: BP 160/82
--- NOTE | 2019-09-29 03:06 | NUR ---
CHECKING PATIENT RESIDUAL AND PATIENT MUCH MORE EDEMTAMOUS THAN START OF SHIFT. MAINLY IN LOWER ABDOMINAL REGION. CONSULTED CHARGE NURSE, FLUID RATE DECREASED AT THIS TIME. PATIENT HAMILTON REMAINS PATENT AND DRAINING URINE. PATIENT DOES NOT APPEAR TO BE IN ANY DISTRESS. RESIDUAL IS AT 30 CC AT THIS TIME. CPOC.
[2019-09-29 04:00] VITALS: BP 157/78
[2019-09-29 05:18] LABS: BASOPHILS 0 % (0-2); EOSINOPHILS 0.8 % (0-7); HEMATOCRIT 34.2 % (36.0-48.0); HEMOGLOBIN 11.5 g/dL (12-16); IMMATURE GRANULOCYTES 0.4 % (0-5); LYMPHOCYTES 12.6 % (15-50); MCHC 33.6 g/dL (31.0-37.0); MCV 112.9 fL (80.0-100.0); MEAN PLATELET VOLUME 10.9 fL (7.4-10.4); MONOCYTES 4.4 % (2-11); NEUTROPHILS 81.8 % (40-80); PLATELET COUNT 162 10x3/uL (130-400); RBC 3.03 10x6/uL (4.00-5.40); RDW 13.3 % (11.5-14.5); WBC 7.1 10x3/uL (4.8-10.8)
[2019-09-29 05:21] LABS: ALBUMIN 0.8 g/dL (3.4-5.0); ALKALINE PHOSPHATASE 113 U/L (30-120); ALT (SGPT) 9 U/L (10-68); BILIRUBIN - TOTAL 0.22 mg/dL (0.2-1.3); CALC OSMOLALITY 266 mosm/kg (275-300); CALCIUM 7.3 mg/dL (8.5-10.1); CARBON DIOXIDE 25.5 mmol/L (21.0-32.0); CHLORIDE - SERUM 106 mmol/L (98-107); GLUCOSE 94 mg/dL (74-106); MAGNESIUM - SERUM 1.9 mg/dL (1.8-2.4); PROTEIN - SERUM 4.1 g/dL (6.4-8.2); SODIUM 135 mmol/L (136-145); UREA NITROGEN 5 mg/dL (7-18)
[2019-09-29 05:23] LABS: CREATININE - SERUM 0.2 mg/dL (0.6-1.3); POTASSIUM - SERUM 4.1 mmol/L (3.5-5.1); eGFR NON AFRICAN AMERICAN > 90 mL/min (90-120)
--- NOTE | 2019-09-29 08:03 | NUR ---
ALERT AND ORIENTED TO SELF AND PLACE. HEART SOUNDS S1 AND S2 HEARD IN ALL MEDINA. LUNGS CLEAR BILATERALLY. BOWEL SOUNDS ACTIVE X 4. RIGHT IJ PATENT WITHOUT REDNESS. BED LOW. CALL MOORE AND PERSONAL ITEMS IN REACH. WILL CONTINUE TO MONITOR.
--- NOTE | 2019-09-29 10:05 | NUR ---
Rehab Note- Continue to follow the patient at this time. Per PT notes, the patient is not tolerating therapy well at this time with c/o pain too bad to even sit up on the side of bed. The patient will have to be able to tolerate the required 3hrs/day of therapy to quailf for an inpatient acute rehab stay. Will continue to follow at this time for increased tolerance to therapy. Thank you for this referral! Cyndy Smith RN Clinical Liaison, [facility] Rehab
--- NOTE | 2019-09-29 10:47 | NUR ---
PATIENT ABLE TO EAT PUREED FOODS WITH THIN LIQUIDS PER BYRON SPEECH THERAPY.
[2019-09-29 12:29] VITALS: BP 123/73
--- NOTE | 2019-09-29 12:49 | NUR ---
OT NOTE: EXTENSIVE ASSIST REQUIRED TODAY. REQUIRED SEVERAL THERAPISTS AND NURSES TO ASSIST WITH GETTING PT FROM BED TO SWALLOW STUDY CHAIR.. PT CONTINUALLY CRYING THAT SHE HAS TO LAY DOWN..SHE CANT DO THIS..LAY HER DOWN.. REQUIRED TOTAL ASSIST TO GET FROM BED TO CHAIR...DIFFICULTY CALMING PT..SCREAMING THROUGHOUT ENTIRE TIME WHILE SHES SITTING ON EOB..MAX ASSIST FOR STATIC SITTING BALANCE. SUMANTH CHOW, OTR/L [phone]
--- NOTE | 2019-09-29 13:22 | NUR ---
Nutrition follow-up: Pt discussed in IDT; passed swallow study today and advanced to puree with thin liquids per speech TwoCal HN infusing @ 40 ml/hr via PEG tube Labs reviewed Wt: 145# RDN will order TF to run nocturnal @ 40 ml/hr from 1800 - 0600. THis will allow pt to feel hungry during the day. Please wt pt daily. RDN following.
--- NOTE | 2019-09-29 16:00 | NUR ---
ADMINISTERED MEDICATION PO, NO DIFFICUTLIES. PT AND PT FAMILY MEMBER UPSET THAT PRN MORPHINE IS DC'D WILL CALL ASHUTOSH MUSEUM TOUR GUIDE. DENIES ANY OTHER NEEDS. RESTING COMFORTABLY IN BED. BED IN LOWEST POSITION, BED RAILS X3, CALL LIGHT WITHIN REACH. WILL CONTINUE TO MONITOR.
[2019-09-29 17:15] VITALS: BP 124/85
[2019-09-29 20:00] VITALS: BP 151/86
--- NOTE | 2019-09-29 20:20 | NUR ---
SUPINE IN BED, A&O X 4. PT DEMANDING PAIN MEDICATION FOR PAIN LEVEL OF 8/10. SPO2 79% ON ROOM AIR. SPO2 JUHI TO 90% AFTER APPLYING 4L O2 VIA NC. CTM.
--- NOTE | 2019-09-29 22:00 | NUR ---
PEG TUBE DISCONNECTED FROM PT AND OFF, PT REFUSES TO BE CONNECTED, STATES SHE ATE A LARGE DINNER AND SHE'S TOO FULL. CTM.
--- NOTE | 2019-09-30 02:56 | NUR ---
I have reviewed this patient and I concur with the Shift Assessment completed by the Licensed Practical Nurse today this shift.
--- NOTE | 2019-09-30 03:30 | NUR ---
PT STILL REFUSING PEG TUBE FEEDING. TUBING CHANGED. CTM.
[2019-09-30 04:30] VITALS: BP 115/73
[2019-09-30 07:01] LABS: BASOPHILS 0 % (0-2); EOSINOPHILS 1.2 % (0-7); HEMATOCRIT 31.6 % (36.0-48.0); HEMOGLOBIN 10.5 g/dL (12-16); IMMATURE GRANULOCYTES 0.4 % (0-5); LYMPHOCYTES 13.3 % (15-50); MCH 37.5 pg (26.0-34.0); MCHC 33.2 g/dL (31.0-37.0); MCV 112.9 fL (80.0-100.0); MEAN PLATELET VOLUME 9.7 fL (7.4-10.4); NEUTROPHILS 80.1 % (40-80); PLATELET COUNT 151 10x3/uL (130-400); RDW 13.4 % (11.5-14.5)
[2019-09-30 07:36] LABS: ALBUMIN 0.8 g/dL (3.4-5.0); ALKALINE PHOSPHATASE 106 U/L (30-120); ALT (SGPT) 9 U/L (10-68); BILIRUBIN - TOTAL 0.13 mg/dL (0.2-1.3); CALC OSMOLALITY 274 mosm/kg (275-300); CALCIUM 7.4 mg/dL (8.5-10.1); CARBON DIOXIDE 27.9 mmol/L (21.0-32.0); CHLORIDE - SERUM 108 mmol/L (98-107); CREATININE - SERUM 0.2 mg/dL (0.6-1.3); GLUCOSE 86 mg/dL (74-106); MAGNESIUM - SERUM 1.9 mg/dL (1.8-2.4); POTASSIUM - SERUM 3.4 mmol/L (3.5-5.1); PROTEIN - SERUM 3.9 g/dL (6.4-8.2); SODIUM 139 mmol/L (136-145); UREA NITROGEN 6 mg/dL (7-18); eGFR NON AFRICAN AMERICAN > 90 mL/min (90-120)
--- NOTE | 2019-09-30 07:36 | NUR ---
ALERT AND ORIENTED. LUNGS DIMINISHED BILATERALLY. HEART SOUNDS S1 AND S2 HEARD IN ALL MEDINA. BOWEL SOUNDS ACTIVE X 4. IV TO RIGHT IJ PATENT WITHOUT REDNESS. O2 IN PLACE AT 9L HF NC. DENIES NEEDS. BED LOW. CALL MOORE AND PERSONAL ITEMS IN REACH. WILL CONTINUE TO MONITOR.
[2019-09-30 08:00] VITALS: BP 121/70
--- NOTE | 2019-09-30 09:50 | PN ---
PATIENT:KAVON GOLDSMITH MEDICAL RECORD: [id number] LOCATION:D.MS aTtum220 ADMISSION DATE: 09/17/19 PROGRESS NOTE DATE OF SERVICE: 09/29/2019 SUBJECTIVE: The patient's case was discussed with staff. She has no new complaint. OBJECTIVE: The patient has a depressed mood, but no thoughts of self-harm. She is tolerating her initial dose of Lexapro well. ASSESSMENT: Major depression. PLAN: The patient is not acutely dangerous and should have outpatient mental health follow up when discharged. TRANSINT:[id number] Voice Confirmation ID: [id number] DOCUMENT ID: [id number] BEN ALBA MD at 0950 CC: [id number] DICTATION DATE: 09/29/19 172 DIRECTOR CLINICAL PHARMACOLOGY: 09/30/19 0025 ADM IN [facility] [address] [place] [address]
--- NOTE | 2019-09-30 10:10 | NUR ---
SPOKE WITH LAB ABOUT PATIENT'S BLOOD CULTURES. STATES SOMEONE IS ON WAY TO DRAW.
--- NOTE | 2019-09-30 10:28 | NUR ---
OT NOTE: (DOS 09/29/19) PT REQUIRED MAX A X2 FOR BED MOB TASKS. PT REQUIRED TOTAL A X2 WITH BED TO CHAIR TSF. PT COMPLETED HAND HYGIENE WITH TOTAL A. [phone] THANK YOU,ARASH SOTO
--- NOTE | 2019-09-30 11:13 | EEG ---
PATIENT:KAVON GOLDSMITH MEDICAL RECORD: [id number] DATE OF : 70 LOCATION:D.220 D.MS ADMISSION DATE: 09/17/19 REFERRING PHYSICIAN: INTERPRETING PHYSICIAN: ZEENAT CREWS MD DATE OF SERVICE: 09/18/2019 DATE OF EE09/18/2019 ROOM NUMBER: [id number]. ORDERING PHYSICIAN: Dr. Crews. CASE HISTORY: A 48-year-old female admitted with seizure disorder with ongoing continuous left face, torso and limb seizure with known past history of right hemispheric ischemic strokes. MEDICATIONS: Keppra and phenobarbital. PROCEDURE: EEG done as a routine bedside portable recording using the standard 10-20 international electrode system. A 16-channel was used with 17th as EKG. Photic stimulation done as activation procedures. DESCRIPTION: EEG opens with the patient poorly responsive with ongoing seizure with the record displaying left hemispheric only fair organization with the background occasionally of 10 Hz with prominent frequent sharply contoured theta and EMG artifact, with right hemispheric recording demonstrating poor organization with high voltage slowing with sharply contoured theta and delta with frequent sharps and slows and spike and wave occurring at about 2 Hz. Photic stimulation did not yield a photoparoxysmal response. IMPRESSION: Moderately abnormal EEG with right hemispheric slowing secondary to past strokes and ongoing sharp and slow and spike and wave activity consistent with a focal seizure disorder. TRANSINT:[id number] Voice Confirmation ID: [id number] DOCUMENT ID: [id number] ZEENAT CREWS MD at 1113 CC: [id number] DICTATION DATE: 09/22/19 1252 SURGICAL PROCESSOR: 09/22/19 1408 ADM IN [place] [id number] [place] [address]
[2019-09-30 12:00] VITALS: BP 127/86
[2019-09-30 16:00] VITALS: BP 140/90
--- NOTE | 2019-09-30 16:39 | NUR ---
OT NOTE: ATTEMPTED TO SEE PT IN AM. PT RESTING AND VERY LETHARGIC.. DTR REPORTED THAT SHE HAD RECENTLY RECEIVED MORPHINE FOR PAIN. REPOSITIONED PTS HEAD/NECK FOR COMFORT. SUMANTH CHOW, OTR/L
--- NOTE | 2019-09-30 17:46 | NUR ---
PATIENT MADE NPO AND TUBE FEED STARTED PER DR GAMBOA.
[2019-09-30 20:00] VITALS: BP 134/86
[2019-10-01 04:00] VITALS: BP 158/99
[2019-10-01 06:42] LABS: ALBUMIN 0.8 g/dL (3.4-5.0); ALKALINE PHOSPHATASE 114 U/L (30-120); ALT (SGPT) 8 U/L (10-68); BILIRUBIN - TOTAL 0.12 mg/dL (0.2-1.3); CALC OSMOLALITY 275 mosm/kg (275-300); CALCIUM 7.5 mg/dL (8.5-10.1); CARBON DIOXIDE 25.8 mmol/L (21.0-32.0); CHLORIDE - SERUM 108 mmol/L (98-107); GLUCOSE 82 mg/dL (74-106); MAGNESIUM - SERUM 1.9 mg/dL (1.8-2.4); POTASSIUM - SERUM 3.6 mmol/L (3.5-5.1); PROTEIN - SERUM 4.1 g/dL (6.4-8.2); SODIUM 140 mmol/L (136-145); UREA NITROGEN 6 mg/dL (7-18)
[2019-10-01 06:43] LABS: CREATININE - SERUM 0.3 mg/dL (0.6-1.3); eGFR NON AFRICAN AMERICAN > 90 mL/min (90-120)
[2019-10-01 08:00] LABS: BASOPHILS 0 % (0-2); EOSINOPHILS 3.5 % (0-7); HEMATOCRIT 32.4 % (36.0-48.0); HEMOGLOBIN 10.7 g/dL (12-16); IMMATURE GRANULOCYTES 1.8 % (0-5); LYMPHOCYTES 8.7 % (15-50); MCH 37.2 pg (26.0-34.0); MCV 112.5 fL (80.0-100.0); MEAN PLATELET VOLUME 10.2 fL (7.4-10.4); MONOCYTES 5.7 % (2-11); NEUTROPHILS 80.3 % (40-80); PLATELET COUNT 172 10x3/uL (130-400); RBC 2.88 10x6/uL (4.00-5.40); RDW 13.4 % (11.5-14.5); WBC 8.3 10x3/uL (4.8-10.8)
[2019-10-01 08:46] VITALS: BP 152/82
--- NOTE | 2019-10-01 09:11 | NUR ---
RESTING IN BED, NO DISTRESS NOTED, PEG TUBE INFUSING FEEDING AT 20, CONT TO MONITOR FOR OVERFEED, CONFUSED, YELLING OUT, CONT TO MONITOR PAIN AND RESP STATUS, O2 PER HIGH FLOW
--- NOTE | 2019-10-01 09:24 | NUR ---
Nutrition follow-up: Pt now NPO 2/2 possible aspiration AEB worsening right lobe pneumonia Labs reviewed Wt: 145# Pulmocare started @ 20 ml/hr. RDN changed TF formula to TwoCal HN @ 20 ml/hr with increase to goal rate of 40 ml/hr due to lower volume needed. RDN will monitor patients TF tolerance.
--- NOTE | 2019-10-01 14:35 | PN ---
PATIENT:KAVON GOLDSMITH MEDICAL RECORD: [id number] LOCATION:D.MS Tatum220 ADMISSION DATE: 09/17/19 PROGRESS NOTE DATE OF SERVICE: 09/30/2019 SUBJECTIVE: The patient's case was discussed and the chart was reviewed. OBJECTIVE: The patient is oriented, has a depressed mood, but no thoughts of self-harm. She has tolerated her Lexapro well for the initial dose. ASSESSMENT: Major depression. PLAN: The patient is not acutely dangerous and needs follow up with the [facility] on discharge. TRANSINT:[id number] Voice Confirmation ID: [id number] DOCUMENT ID: [id number] BEN ALBA MD at 1435 CC: [id number] DICTATION DATE: 09/30/19 171 TUBE AND ROD STRAIGHTENER: 10/01/19 0107 ADM IN [place] [id number] [place] [address]
--- NOTE | 2019-10-01 14:36 | NUR ---
PT AND WILL GO TO ICU AND BE PUT ON A VENT IF NECESSARY, DR GAMBOA AWARE OF DECISION
[2019-10-01 16:53] VITALS: BP 171/100
--- NOTE | 2019-10-01 17:00 | NUR ---
UP FOR SHOWER, MACARIO WELL, CONT TO MONITOR PAIN AND EDEMA
--- NOTE | 2019-10-01 18:00 | NUR ---
RESTING IN BED WITH BIPAP IN PLACE, IN ROOM, IV AT 10, FEEDING TUBE CLAMPED AND FLUSHED EARLIER THIS SHIFT, CONT TO MONITOR EDEMA, LARGE HAMILTON OUT NOTED
[2019-10-01 20:00] VITALS: BP 143/93
--- NOTE | 2019-10-02 02:16 | NUR ---
IN BED WITH BIPAP ON NO NEEDS AT THIS TIME. RIGHT IJ IN PLACE AND PATSMILEY. AYANNA AT BEDSIDE .
[2019-10-02 04:00] VITALS: BP 138/88
[2019-10-02 09:48] VITALS: BP 144/89
--- NOTE | 2019-10-02 11:22 | NUR ---
Nutrition follow-up: PT NPO now 2/2 poor breathing and increased O2 Labs reviewed Wt: 145# Possible ProcalAmine PPN for nutrition support RDN following.
--- NOTE | 2019-10-02 12:16 | PN ---
PATIENT:KAVON GOLDSMITH MEDICAL RECORD: [id number] LOCATION:D.MS Tatum220 ADMISSION DATE: 09/17/19 PROGRESS NOTE DATE OF SERVICE: 10/01/2019 SUBJECTIVE: The patient's case was discussed with staff. She has no new complaint. OBJECTIVE: The patient is in good behavioral control. She has a depressed mood, but no evidence of acute or direct dangerousness. ASSESSMENT: Major depression. PLAN: The patient should be referred to the [facility] on discharge. TRANSINT:[id number] Voice Confirmation ID: [id number] DOCUMENT ID: [id number] BEN ALBA MD at 1216 CC: [id number] DICTATION DATE: 10/01/19 170 MOVIE THEATER USHER: 10/02/19 0122 ADM IN [place] [id number] [place] [address]
[2019-10-02 12:58] VITALS: BP 139/88
[2019-10-02 14:22] LABS: BASOPHILS 0.2 % (0-2); EOSINOPHILS 0.7 % (0-7); HEMATOCRIT 28.5 % (36.0-48.0); HEMOGLOBIN 9.5 g/dL (12-16); IMMATURE GRANULOCYTES 1.4 % (0-5); LYMPHOCYTES 13.2 % (15-50); MCH 37.7 pg (26.0-34.0); MCHC 33.3 g/dL (31.0-37.0); MCV 113.1 fL (80.0-100.0); MEAN PLATELET VOLUME 9.4 fL (7.4-10.4); MONOCYTES 6.6 % (2-11); NEUTROPHILS 77.9 % (40-80); PLATELET COUNT 188 10x3/uL (130-400); RBC 2.52 10x6/uL (4.00-5.40); RDW 13.4 % (11.5-14.5)
[2019-10-02 14:44] LABS: ALBUMIN 0.8 g/dL (3.4-5.0); ALKALINE PHOSPHATASE 108 U/L (30-120); ALT (SGPT) 7 U/L (10-68); BILIRUBIN - TOTAL 0.17 mg/dL (0.2-1.3); CALC OSMOLALITY 280 mosm/kg (275-300); CALCIUM 7.7 mg/dL (8.5-10.1); CHLORIDE - SERUM 107 mmol/L (98-107); CREATININE - SERUM 0.3 mg/dL (0.6-1.3); GLUCOSE 83 mg/dL (74-106); MAGNESIUM - SERUM 1.8 mg/dL (1.8-2.4); PRO BNP 735 pg/mL (0-125); SODIUM 143 mmol/L (136-145); UREA NITROGEN 5 mg/dL (7-18); eGFR NON AFRICAN AMERICAN > 90 mL/min (90-120)
[2019-10-02 14:50] LABS: CARBON DIOXIDE 33.8 mmol/L (21.0-32.0); POTASSIUM - SERUM 2.5 mmol/L (3.5-5.1)
[2019-10-02 15:16] LABS: WBC 5.9 10x3/uL (4.8-10.8)
[2019-10-02 17:23] VITALS: BP 122/63
--- NOTE | 2019-10-02 18:35 | NUR ---
BIALTERAL LOWER LEG DRESSING CHNAGED. TUBE FEEDING STARTED AT 20 CC, THE HOB IS UP AT 45 DEGREES.
[2019-10-02 20:00] VITALS: BP 130/85
[2019-10-03] VITALS: BP 122/73
--- NOTE | 2019-10-03 02:21 | NUR ---
PATIENT IS ALERT AND AWARE ABLE TO VOICE NEEDS AND WANTS TO STAFF. RIGHT IJ IN PLACE AND PATEN. F/C IN PLACE AND PATEN, POTASSIUM 2.5,- # 6 10 MEQ IV RIDER IN PLACE AT THIS TIME. O2 AT 10 LETERS HIGH FLOW N/C, WHEN NOT ON BIPAP HUSBEN AT BEDSIDE, NO NEEDS AT THIS TIME.
[2019-10-03 04:00] VITALS: BP 137/87
--- NOTE | 2019-10-03 07:44 | NUR ---
RECEIVED PT FROM ARCHITECTURAL EXAMINER. PT RESTING IN BED @ 40 DEGREE INCLINE WITH EYES CLOSED, BREATHING EVEN AND NONLABORED, NO S/S OF DISTRESS NOTED AT THIS TIMEM. FAMILY AT BEDSIDE. BED IN LOWEST POSITON, BED RAILS X2, CALL LIGHT WTHIN REACH. WILL CONTINUE TO MONITOR.
--- NOTE | 2019-10-03 08:19 | EC ---
PATIENT:KAVON GOLDSMITH DATE OF SERVICE: 09/17/19 SEX: F MEDICAL RECORD: [id number] DATE OF : 70 LOCATION:D.MS [place] AGE OF PATIENT: 48 ADMISSION DATE: 09/17/19 REFERRING PHYSICIAN: INTERPRETING PHYSICIAN: ERMIAS GRAYSON MD ECHOCARDIOGRAM REPORT ECHO CHARGES 4 ECHO COMPLETE Date: 10/01/19 CLINICAL DIAGNOSIS: SOB ECHOCARDIOGRAPHIC MEASUREMENTS (adult normal given) AC root (d.<3.7cm) 3.4 cm LV Septum d (<1.2 cm> 0.6 cm Valve Excursion 1.8 cm LV Septum (systole) 0.8 cm Left Atria (s.<4.0cm> 2.7 cm LVPW d(<1.2cm) 0.8 cm RV (d.<2.3cm) 2.2 cm LVPW (sytole) 0.9 cm LV diastole(<5.6CM) 2.6 cm MV E-F(>70mm/sec) cm LV systole 1.9 cm LVOT Diameter 1.8 cm MV exc.(>10mm) cm Est.ejection fraction (50-75%) % DOPPLER: LVIT cm/sec A 77 cm/sec E 55 cm/sec LA cm/sec RVSP 20.7 mmHg LVOT 111 cm/sec AOP1/2T m/s Asc. Ao 137 cm/sec RVOT cm/sec RA cm/sec PA cm/sec AV Gradient Peak 7.5 mmHg AV Mean 4.3 mmHg AV Area 2.2 cm MV Gradient Peak 3.0 mmHg MV Mean 1.4 mmHg MV Area cm COMMENTS: Biometrics Experimentalist: Mil[facility] Inspector Set Up And Lay Out: 3 Dr. Guajardo TAPE# PACS Pericardial Effusion N DATE OF SERVICE: No LVH. LV internal dimensions are normal. Wall motion is normal. EF is greater than or equal to 55%. Aortic valve is tricuspid. No evidence of stenosis by Doppler interrogation. Left atrium is normal. Mitral valve shows no prolapse. Trivial MR. Right-sided chambers are grossly normal. Trivial TR. TRANSINT:[id number] Voice Confirmation ID: [id number] DOCUMENT ID: [id number] ECHOCARDIOGRAM REPORT [id number] KAVON GOLDSMITH ERMIAS GRAYSON MD at 4169 CC: [id number] DICTATION DATE: 10/02/19 1316 SIGHT EFFECTS SPECIALIST: 10/02/19 1403 ADM IN [facility] [address] [place] [id number]
--- NOTE | 2019-10-03 09:09 | PN ---
PATIENT:KAVON GOLDSMITH MEDICAL RECORD: [id number] LOCATION:D.MS Tatum220 ADMISSION DATE: 09/17/19 PROGRESS NOTE DATE OF SERVICE: 10/02/2019 SUBJECTIVE: The patient's case was discussed with staff. She has no new complaint. OBJECTIVE: The patient's mood is improving. There is no evidence of dangerousness. She is interacting well. ASSESSMENT: Major depression. PLAN: Current medicines should be maintained and the patient again should be referred to outpatient psychiatric care once discharged. TRANSINT:[id number] Voice Confirmation ID: [id number] DOCUMENT ID: [id number] BEN ALBA MD at 0909 CC: [id number] DICTATION DATE: 10/02/191737 EKG MANAGER: 10/02/19 2322 ADM IN [place] [id number] [place] [id number]
[2019-10-03 09:17] VITALS: BP 129/71
--- NOTE | 2019-10-03 10:44 | NUR ---
PT RESTING IN BED, EYES CLOSED, EASILY AROUSES TO VOICE. ADMINISTERED MEDICATION VIA PEG TUBE, TOLERATED WELL. STRAIGTHENED OUT IV LINES. GIVING 20 MEQ OF POTASSIUM TO REPLACE ELECTROLYTE PER PROTOCOL. FAMILY AT BEDSIDE. REQUESTING TO WEAR BIPAP, WILL CALL RESPIRATORY. PAUSED TUBE FEEDING FOR BIPAP PER ORDER. DENIES ANY OTHER NEEDS AT THIS TIME. BED IN LOWEST POSITION, BED RAILS X2, CALL LIGHT WTHIN REACH. WILL CONTINUE TO MONITOR.
[2019-10-03 12:53] VITALS: BP 113/65
--- NOTE | 2019-10-03 13:22 | NUR ---
PRN MORPHINE FOR 10/10 PAIN IN RIGHT SIDE OF BODY. RESTING IN BED, FAMILY AT BEDSIDE. DENIES ANY NEEDS. WILL CONTINUE TO MONITOR.
--- NOTE | 2019-10-03 15:05 | NUR ---
ADMINISTERED MEDICATION ORALLY WITH NO DIFFICULTIES. NEW BAG OF POTASSIUM SPIKED FOR ELECTROLYTE PROTOCOL. NEW TUBE FEEDING BAGS HUNG. RESIDUAL AT THIS TIME IS LESS THAN 5ML, INCREASED FEEDING TO 30 CC/HR PER ORDER. DENIES ANY NEEDS. FAMILY AT BEDSIDE. WILL CONTINUE TO MONITOR.
--- NOTE | 2019-10-03 15:19 | NUR ---
I have reviewed this patient and I concur with the Shift Assessment completed by the Licensed Practical Nurse today this shift.
--- NOTE | 2019-10-03 16:42 | NUR ---
CONTACTED LABORATORY, THEY INFORMED ME THAT THEY WERE UNABLE TO STICK PT AND THEREFORE DID NOT DRAW 1500 LABS LIKE ORDERED.
--- NOTE | 2019-10-03 16:49 | NUR ---
HUNG IV ABX, TOLERATING WELL. RESTING COMFORTABLY. FAMILY AT BEDSIDE. DENIES ANY NEEDS. WILL CONTINUE TO MONITOR.
[2019-10-03 17:11] VITALS: BP 102/65
[2019-10-03 18:05] LABS: ALBUMIN 0.8 g/dL (3.4-5.0); ALKALINE PHOSPHATASE 101 U/L (30-120); ALT (SGPT) 7 U/L (10-68); BILIRUBIN - TOTAL 0.14 mg/dL (0.2-1.3); CALC OSMOLALITY 272 mosm/kg (275-300); CALCIUM 7.5 mg/dL (8.5-10.1); CARBON DIOXIDE 37.8 mmol/L (21.0-32.0); CHLORIDE - SERUM 102 mmol/L (98-107); CREATININE - SERUM 0.3 mg/dL (0.6-1.3); GLUCOSE 102 mg/dL (74-106); MAGNESIUM - SERUM 1.7 mg/dL (1.8-2.4); PROTEIN - SERUM 4.2 g/dL (6.4-8.2); SODIUM 138 mmol/L (136-145); UREA NITROGEN 4 mg/dL (7-18); eGFR NON AFRICAN AMERICAN > 90 mL/min (90-120)
[2019-10-03 18:06] LABS: POTASSIUM - SERUM 2.6 mmol/L (3.5-5.1)
[2019-10-03 18:11] LABS: BASOPHILS 0.2 % (0-2); EOSINOPHILS 1.9 % (0-7); HEMATOCRIT 28.7 % (36.0-48.0); HEMOGLOBIN 9.4 g/dL (12-16); IMMATURE GRANULOCYTES 1.3 % (0-5); LYMPHOCYTES 21.1 % (15-50); MCH 36.9 pg (26.0-34.0); MCHC 32.8 g/dL (31.0-37.0); MCV 112.5 fL (80.0-100.0); MEAN PLATELET VOLUME 9.4 fL (7.4-10.4); MONOCYTES 9.1 % (2-11); NEUTROPHILS 66.4 % (40-80); PLATELET COUNT 208 10x3/uL (130-400); RBC 2.55 10x6/uL (4.00-5.40); RDW 13.4 % (11.5-14.5); WBC 5.4 10x3/uL (4.8-10.8)
--- NOTE | 2019-10-03 18:20 | NUR ---
HUNG IV ABX, TOLERATING WELL. HUNG BAG 3/3 OF POTASSIUM TO REPLACE ELECTROLYTE PER PROTOCOL. RESTING COMFORTABLY IN BED. FAMILY AT BEDSIDE. DENIES ANY NEEDS. WILL CONTINUE TO MONITOR.
--- NOTE | 2019-10-03 18:28 | NUR ---
PRN MORPHINE FOR PAIN 11/21. RESTING IN BED, FAMILY AT BEDSIDE. DENIES ANY NEEDS. WILL CONTINUE TO MONITOR.
--- NOTE | 2019-10-04 03:00 | NUR ---
I have reviewed this patient and I concur with the Shift Assessment completed by the Licensed Practical Nurse today this shift.
[2019-10-04 04:00] VITALS: BP 101/60
[2019-10-04 06:17] LABS: BASOPHILS 0.2 % (0-2); EOSINOPHILS 3.1 % (0-7); HEMATOCRIT 26.7 % (36.0-48.0); HEMOGLOBIN 8.6 g/dL (12-16); IMMATURE GRANULOCYTES 1.6 % (0-5); LYMPHOCYTES 25.4 % (15-50); MCH 36.9 pg (26.0-34.0); MCHC 32.2 g/dL (31.0-37.0); MEAN PLATELET VOLUME 9.3 fL (7.4-10.4); NEUTROPHILS 59.7 % (40-80); PLATELET COUNT 228 10x3/uL (130-400); RBC 2.33 10x6/uL (4.00-5.40); RDW 13.5 % (11.5-14.5); WBC 4.9 10x3/uL (4.8-10.8)
[2019-10-04 06:27] LABS: MCV 114.6 fL (80.0-100.0)
[2019-10-04 09:30] VITALS: BP 108/42
[2019-10-04 10:06] LABS: ALBUMIN 0.7 g/dL (3.4-5.0); ALKALINE PHOSPHATASE 87 U/L (30-120); ALT (SGPT) 6 U/L (10-68); BILIRUBIN - TOTAL 0.16 mg/dL (0.2-1.3); CALC OSMOLALITY 278 mosm/kg (275-300); CALCIUM 7.6 mg/dL (8.5-10.1); CARBON DIOXIDE 38.9 mmol/L (21.0-32.0); CHLORIDE - SERUM 101 mmol/L (98-107); CREATININE - SERUM 0.3 mg/dL (0.6-1.3); GLUCOSE 81 mg/dL (74-106); MAGNESIUM - SERUM 1.7 mg/dL (1.8-2.4); PHOSPHOROUS 2.4 mg/dL (2.5-4.9); PROTEIN - SERUM 3.9 g/dL (6.4-8.2); SODIUM 142 mmol/L (136-145); UREA NITROGEN 5 mg/dL (7-18); VANCOMYCIN - TROUGH 16.2 ug/mL (10.0-20.0); eGFR NON AFRICAN AMERICAN > 90 mL/min (90-120)
[2019-10-04 10:16] LABS: POTASSIUM - SERUM 2.9 mmol/L (3.5-5.1)
[2019-10-04 13:23] VITALS: BP 106/52
[2019-10-04 16:23] VITALS: BP 106/53
[2019-10-04 20:00] VITALS: BP 104/50
[2019-10-05 00:10] VITALS: BP 126/60
--- NOTE | 2019-10-05 02:38 | NUR ---
I have reviewed this patient and I concur with the Shift Assessment completed by the Licensed Practical Nurse today this shift.
[2019-10-05 04:30] VITALS: BP 99/57
[2019-10-05 05:42] LABS: BASOPHILS 0.3 % (0-2); EOSINOPHILS 2.5 % (0-7); HEMATOCRIT 26.8 % (36.0-48.0); HEMOGLOBIN 8.5 g/dL (12-16); IMMATURE GRANULOCYTES 1.4 % (0-5); LYMPHOCYTES 19.9 % (15-50); MCH 36.3 pg (26.0-34.0); MCHC 31.7 g/dL (31.0-37.0); MCV 114.5 fL (80.0-100.0); MEAN PLATELET VOLUME 9.1 fL (7.4-10.4); MONOCYTES 7.5 % (2-11); NEUTROPHILS 68.4 % (40-80); PLATELET COUNT 231 10x3/uL (130-400); RBC 2.34 10x6/uL (4.00-5.40); RDW 13.2 % (11.5-14.5)
[2019-10-05 05:45] LABS: WBC 6.9 10x3/uL (4.8-10.8)
[2019-10-05 05:58] LABS: ALBUMIN 0.7 g/dL (3.4-5.0); ALKALINE PHOSPHATASE 79 U/L (30-120); BILIRUBIN - TOTAL 0.18 mg/dL (0.2-1.3); CALC OSMOLALITY 272 mosm/kg (275-300); CALCIUM 7.8 mg/dL (8.5-10.1); CHLORIDE - SERUM 100 mmol/L (98-107); CREATININE - SERUM 0.3 mg/dL (0.6-1.3); GLUCOSE 86 mg/dL (74-106); MAGNESIUM - SERUM 1.9 mg/dL (1.8-2.4); PHOSPHOROUS 2.4 mg/dL (2.5-4.9); PROTEIN - SERUM 4.2 g/dL (6.4-8.2); SODIUM 138 mmol/L (136-145); UREA NITROGEN 6 mg/dL (7-18); eGFR NON AFRICAN AMERICAN > 90 mL/min (90-120)
[2019-10-05 06:06] LABS: POTASSIUM - SERUM 3.6 mmol/L (3.5-5.1)
[2019-10-05 06:08] LABS: ALT (SGPT) 5 U/L (10-68); CARBON DIOXIDE 41.5 mmol/L (21.0-32.0)
[2019-10-05 09:49] VITALS: BP 100/40
--- NOTE | 2019-10-05 11:57 | NUR ---
PT ALERT X 4. BREATH SOUNDS DIMINISHED TO LOWER LOBES, 3L O2 PER HFNC. CENTRAL LINE TO RIGHT INTERNAL JUGULAR, PATENT, DRESSING CDI. PEG TUBE TO RIGHT SIDE, FLUSHES EASILY, DRESSING CHANGED. HAMILTON IN PLACE. GROIN AND BUTTOCKS EXCORIATED. LINEN CHANGED. PT REPORTING PAIN OF 5/10. 1ST STEP MATTRESS IN USE. FAMILY AT BEDSIDE. BED LOW, CALL LIGHT IN REACH. NO OTHER NEEDS AT THIS TIME.
[2019-10-05 12:15] VITALS: BP 94/47
[2019-10-05 17:21] VITALS: BP 97/52
[2019-10-05 20:00] VITALS: BP 109/60
[2019-10-06 00:05] VITALS: BP 100/45
[2019-10-06 04:30] VITALS: BP 109/54
--- NOTE | 2019-10-06 05:08 | NUR ---
I have reviewed this patient and I concur with the Shift Assessment completed by the Licensed Practical Nurse today this shift.
[2019-10-06 05:18] LABS: BASOPHILS 0.2 % (0-2); EOSINOPHILS 2.2 % (0-7); HEMATOCRIT 26.5 % (36.0-48.0); HEMOGLOBIN 8.4 g/dL (12-16); IMMATURE GRANULOCYTES 1.9 % (0-5); LYMPHOCYTES 21.5 % (15-50); MCH 36.5 pg (26.0-34.0); MCHC 31.7 g/dL (31.0-37.0); MCV 115.2 fL (80.0-100.0); MEAN PLATELET VOLUME 9.4 fL (7.4-10.4); MONOCYTES 8.2 % (2-11); RDW 13.4 % (11.5-14.5); WBC 8.6 10x3/uL (4.8-10.8)
[2019-10-06 05:28] LABS: PLATELET COUNT 299 10x3/uL (130-400)
[2019-10-06 05:39] LABS: ALBUMIN 0.8 g/dL (3.4-5.0); ALKALINE PHOSPHATASE 84 U/L (30-120); ALT (SGPT) 5 U/L (10-68); BILIRUBIN - TOTAL 0.12 mg/dL (0.2-1.3); CALCIUM 7.6 mg/dL (8.5-10.1); CARBON DIOXIDE 39.2 mmol/L (21.0-32.0); CHLORIDE - SERUM 100 mmol/L (98-107); GLUCOSE 82 mg/dL (74-106); PHOSPHOROUS 2.9 mg/dL (2.5-4.9); POTASSIUM - SERUM 3.8 mmol/L (3.5-5.1); PROTEIN - SERUM 4.4 g/dL (6.4-8.2); SODIUM 136 mmol/L (136-145); UREA NITROGEN 8 mg/dL (7-18); VANCOMYCIN - RANDOM 25.9 ug/mL (10.0-20.0)
[2019-10-06 05:40] LABS: CALC OSMOLALITY 268 mosm/kg (275-300); CREATININE - SERUM 0.4 mg/dL (0.6-1.3); eGFR NON AFRICAN AMERICAN > 90 mL/min (90-120)
--- NOTE | 2019-10-06 06:57 | NUR ---
AWAKE AND ALERT. ORIENTED X3. C/O RIGHT SIDED PAIN LEVEL 10. REQUESTED AND GIVEN 1MG MORPHINE SLOW IVP FOR SAME. WILL MONITOR.
--- NOTE | 2019-10-06 08:28 | NUR ---
AWAKE AND ALERT. ORIENTED X3. LUNGS HAVE FAINT CRACKLES IN RIGHT LOBES. OCCASSIONAL DRY COUGH NOTED. SKIN IS INTACT WITHOUT REDNESS BUT EDEMA NOTED TO BILATERAL LE. RIGHT IJ IS PATENT WITHOUT REDNESS AT INSERTION SITE. HAMILTON PATENT WITH CLEAR YELLOW URINE. DENIES NEEDS.
[2019-10-06 08:44] VITALS: BP 100/46
--- NOTE | 2019-10-06 09:30 | NUR ---
GIVEN AM MEDS VIA PEG WITHOUT DIFFICULTY. AT BEDSIDE. DENIES NEEDS.
--- NOTE | 2019-10-06 11:58 | NUR ---
REQUESTED AND GIVEN 1MG MORPHINE SLOW IVP FOR C/O RIGHT SIDED PAIN LEVEL 8.
--- NOTE | 2019-10-06 12:30 | NUR ---
CONFUSED TO TIME FOR PRN MEDS. AT BEDSIDE AND EXPLAINED TO HER. WILL MONITOR.
[2019-10-06 13:30] VITALS: BP 104/49
[2019-10-06 17:37] VITALS: BP 100/43
--- NOTE | 2019-10-06 18:36 | NUR ---
WANTS TO EAT REAL FOOD. AT BEDSIDE. DENIES NEEDS. NO CHANGES NOTED.
[2019-10-06 20:00] VITALS: BP 99/45
[2019-10-07] VITALS (7 sets, daily range): BP systolic 88–114; BP diastolic 41–82
--- NOTE | 2019-10-07 08:29 | NUR ---
SHE IS ALERT, TALKING. ASKING ABOUT EATING? TUBE FEEDING STARTED BACK THIS MORNING, IT WAS OFF BECAUSE OF THE BIPAP. THE CALL LIGHT IS WITHIN REACH. HER IS AT THE BEDSIDE.
--- NOTE | 2019-10-07 10:14 | NUR ---
OT NOTE:(LATE ENTRY FOR 10/05).. AT BEDSIDE, PT INITIALLY CALM AND READY FOR THERAPY. CONFUSED TO WHICH THERAPY WE WERE WITH.SHE THOUGHT WE WERE WITH SPEECH THERAPY AND ANGRY BECAUSE WE HAD NOT DONE ANOTHER SWALLOW STUDY BECAUSE SHE WANTS TO EAT. ASSISTED PT WITH LE MGMT TO SIT UP ON EOB.. REQUIRED MAX ASSIST. MAX ASSIST X 2 FOR SUPINE TO SIT AND STATIC SITTING ON EOB. PT UNABLE TO TOLERATE SITTING ON EOB FOR GREATER THAN 1-2 MIN DUE TO REPORTED BACK PAIN. PT IS VERY WEAK.. WOULD BENEFIT FROM IP REHAB FOR MORE INTENSE TMT. 140-204
[2019-10-07 11:37] LABS: BASOPHILS 0.3 % (0-2); EOSINOPHILS 0.9 % (0-7); HEMATOCRIT 29.4 % (36.0-48.0); HEMOGLOBIN 9.4 g/dL (12-16); IMMATURE GRANULOCYTES 1.8 % (0-5); LYMPHOCYTES 18.3 % (15-50); MCH 36.9 pg (26.0-34.0); MCV 115.3 fL (80.0-100.0); MEAN PLATELET VOLUME 9.3 fL (7.4-10.4); MONOCYTES 5.9 % (2-11); NEUTROPHILS 72.8 % (40-80); PLATELET COUNT 308 10x3/uL (130-400); RBC 2.55 10x6/uL (4.00-5.40); RDW 13.3 % (11.5-14.5)
[2019-10-07 11:40] LABS: ALBUMIN 0.8 g/dL (3.4-5.0); ALKALINE PHOSPHATASE 92 U/L (30-120); BILIRUBIN - TOTAL 0.17 mg/dL (0.2-1.3); CALC OSMOLALITY 268 mosm/kg (275-300); CALCIUM 7.8 mg/dL (8.5-10.1); CARBON DIOXIDE 36.9 mmol/L (21.0-32.0); CHLORIDE - SERUM 101 mmol/L (98-107); CREATININE - SERUM 0.4 mg/dL (0.6-1.3); GLUCOSE 99 mg/dL (74-106); PHOSPHOROUS 2.6 mg/dL (2.5-4.9); POTASSIUM - SERUM 4.2 mmol/L (3.5-5.1); PROTEIN - SERUM 4.7 g/dL (6.4-8.2); SODIUM 135 mmol/L (136-145); UREA NITROGEN 10 mg/dL (7-18); eGFR NON AFRICAN AMERICAN > 90 mL/min (90-120)
[2019-10-07 11:41] LABS: ALT (SGPT) 7 U/L (10-68)
--- NOTE | 2019-10-07 12:00 | NUR ---
Rehab Note- Faxed requested therapy notes andresedrick progress notes to Kavita/Sarah at this time for PreAuth process. Will continue to await determination from insurance at this time. THank you for this referral! Cyndy Smith RN Clinical Liaison, [facility] Rehab
[2019-10-07 12:10] LABS: WBC 10.8 10x3/uL (4.8-10.8)
--- NOTE | 2019-10-07 14:14 | NUR ---
OT NOTE: PT INITIALLY VERY CALM.. AT BEDSIDE. HOWEVER, WHEN LEFT, SHE BEGAN CRYING AND SAYING THAT SHE JUST COULDNT DO ANYTHING. RETURNED AND HE WAS ASKED TO STAY FOR TMT SESSION. BED MOB WITH MAX ASSIST X 2; EOB SITTING WITH MAX ASSIST X 2.. PT WITH HARD PUSH BACKWARDS.. PT DID TOLERATED SITTING UP FOR APPROX 5 MIN ON EOB..REFUSED TO ATTEMPT TO STAND, EVEN WITH HUSBANDS ENCOURAGEMENT. BED MOB INCLUDING ROLLING SIDE TO SIDE WITH MOD ASSIST TO L SIDE AND MAX ASSIST TO R SIDE. EXTENSIVE TIME REQUIRED. SUMANTH CHOW, OTR/L 1-125
--- NOTE | 2019-10-07 15:09 | NUR ---
OT NOTE: PT COMPLETED BED MOB WITH TOTAL A X2. PT COMPLETED SITTING AT EOB WITH MAX A X2. PT REQUIRED LB HYGIENE WITH TOTAL A. 1-125 THANK YOU,ARASH SOTO
--- NOTE | 2019-10-07 18:30 | NUR ---
sHE ATE WITHOUT ANY COUGHING OR DIFFICULTLY. SHE IS SETTING STRAIGHT UP THE BED WILL ALLOW. THE CALL LIGHT IS WITHIN REACH.
[2019-10-08] VITALS: BP 108/59
--- NOTE | 2019-10-08 01:29 | NUR ---
MORPHINE WAS GIVEN PER REQUEST FOR PQAIN 08/21 AT 2009. WAS SCANED BUT NOT SHOWING ON MAR WAS EFFECT PT WAS SLEEPING.
[2019-10-08 04:00] VITALS: BP 116/53
--- NOTE | 2019-10-08 07:30 | NUR ---
RESTING IN BED WITH O2 IN PLACE. 1/2 NS AT 30 ML/HR. PRN MORPHINE FOR PAIN. BIPAP AT NIGHT PEG TUB IN PLACE AND PATEN.CALL LIGHT AND PHON IN REACH
[2019-10-08 07:42] LABS: MAGNESIUM - SERUM 2.1 mg/dL (1.8-2.4); PHOSPHOROUS 2.5 mg/dL (2.5-4.9)
[2019-10-08 09:55] VITALS: BP 106/49
[2019-10-08] MEDS ORDERED: NICODERM CQ1 EAC3 TRANSDERM (12:04)
[2019-10-08] MEDS ORDERED: PLAVIX75 MG GT (12:04)
[2019-10-08] MEDS ORDERED: KEPPRA500 MG PO (12:07)
[2019-10-08] MEDS ORDERED: LEXAPRO20 MG PEG (12:07)
[2019-10-08] MEDS ORDERED: DEPAKOTE250 MG PO (12:10)
[2019-10-08] MEDS ORDERED: ELIQUIS2.5 MG PEG (12:11)
[2019-10-08] MEDS ORDERED: CALMOSEPTINE OI71 GM TOPICAL (12:13)
[2019-10-08 12:19] LABS: CALC OSMOLALITY 272 mosm/kg (275-300); CALCIUM 7.4 mg/dL (8.5-10.1); CARBON DIOXIDE 33.3 mmol/L (21.0-32.0); CHLORIDE - SERUM 103 mmol/L (98-107); CREATININE - SERUM 0.4 mg/dL (0.6-1.3); GLUCOSE 78 mg/dL (74-106); POTASSIUM - SERUM 4.2 mmol/L (3.5-5.1); SODIUM 137 mmol/L (136-145); UREA NITROGEN 12 mg/dL (7-18); eGFR NON AFRICAN AMERICAN > 90 mL/min (90-120)
--- NOTE | 2019-10-08 13:05 | MORECARE ---
CASE MANAGEMENT DISCHARGE SUMMARY PATIENT: KAVON GOLDSMITH UNIT: [id number] ADM DATE: 09/17/19 AGE: 48 : 70 SEX: F ROOM/BED: D.2205 AUTHOR: ENEDINADOC PHYSICIAN: REFERRING PHYSICIAN: MARLENE RIBERA MD DATE OF SERVICE: 10/08/19 Discharge Plan Patient Name: KAVON GOLDSMITH Facility: [facility]:[place] : 1970 Planned Disposition: Inpatient Rehab Anticipated Discharge Date: Discharge Date: Expected LOS: Initial Reviewer: [email or web address] Initial Review Date: 09/17/2019 Generated: 10/08/19 2:04 pm Comments DCP- Discharge Planning Updated by [email or web address]: Ericka Espinosa on 10/08/19 12:[address] patient will be discharging to inpatient rehab at [facility] served and signed mom at bedside cm to follow and assist as needed DCP- Discharge Planning Updated by [email or web address]: Ericka Espinosa on 09/19/19 10:[address] Patient Name: KAVON GOLDSMITH Admission Status: ER Accout number: [id number] Admission Date: 09-17-2019 : 1970 Admission Diagnosis: Attending: PETER Current LOS: 2 Anticipated DC Date: Planned Disposition: Inpatient Rehab Primary Insurance: [facility] Discharge Planning Comments: PRABHJOT spoke with patients /ex- about discharge plan. He stated that they have built a 400x 12 ft cabin on her parents property where she can be independent with her care. She has a electric wheelchair, walker, scooter, service dog. Per her she started having seizures in 2013 after she had a stroke. He stated that her legs were very weak. He said that she did walk at home with her walker. He has made her cabin accessible for her with rails on her toilet. Her home address is [address] [place] [address] in [place] [address]. her cell number is [phone]. He would like her to go to inpatient rehab here at [facility]. He said he did not think that she would go to a [facility] home. He would like her to go to [facility] after inpatient rehab if needed. CM will speak to patient to see what her plan is. Binu was very helpful and seem like he is a good support system for her. Boot Repairer: Ericka Espinosa DCPIA - Discharge Planning Initial Assessment Updated by [email or web address]: Ericka Espinosa on 09/19/19 10:37 am * Is the patient Alert and Oriented? Yes * How many steps to enter\exit or inside your home? * PCP [facility] * Preadmission Environment Home Alone * ADLs Partial Dependent * Partial ADLs (Assistance needed) Ambulation Medication Management Toileting * Equipment Bedside Commode Grab Bars Power Chair or Electric Scooter Rolling Walker Shower Chair Walker Wheelchair * Other Equipment SERVICE DOG * List name and contact numbers for known caregivers / representatives who currently or will assist patient after discharge: BINU GOLDSMITH- [phone] * Verbal permission to speak to the caregivers and representatives has been obtained from the patient. Yes * Additional services required to return to the preadmission environment? Yes * Has this patient been hospitalized within the prior 30 days at any hospital? Yes Coverage Notice Reviewer: [email or web address] - Ericka Espinosa Notice Issued Date-Time: 10/08/2019 12:50 Notice Type: IM Discharge Notice Notice Delivered To: Patient Relationship to Patient: Ink Printer Name: Delivery Method: HAND - Hand Delivered Lisandra Days: Prior Verbal Notification: Recipient Understood Notice: Yes Recipient Signature: Yes Med Rec Note Co-signed by Attending: Coverage Notice Comment: Reviewer: [email or web address] Zeinab Espinosa Notice Issued Date-Time: 10/08/2019 12:50 Notice Type: Patient Choice Letter Notice Delivered To: Patient Relationship to Patient: Ink Printer Name: Delivery Method: HAND - Hand Delivered Lisandra Days: Prior Verbal Notification: Recipient Understood Notice: Yes Recipient Signature: Yes Med Rec Note Co-signed by Attending: Coverage Notice Comment: inpatient rehab Last DP export: 09/19/19 10:05 am Patient Name: KAVON GOLDSMITH Page [phone] at 1305 All edits/amendments must be made on the electronic document DICTATION DATE: 10/08/19 1305 VP [employer]: SOFI 10/08/19 1305 RPT#: [id number] DC DATE: STATUS: ADM IN [facility] [address] [place] [address] END OF REPORT
[2019-10-08 13:46] VITALS: BP 92/53
--- NOTE | 2019-10-08 14:24 | NUR ---
Recieved a fax from Jeannette at [facility]. This patient has been aithorized for an ARU Auth# [id number]. Reviewed patient's chart for the ARU. Spoke to the CM Jolanta, Electrotherapist Tina and read ST notes from today re diet change to puree foods and thickened liquids. Remains unclear whether or not patient is to continue her tube feeding. ST mentions patient had no S&S of aspiration, but required close supervision, had effortful swallowing and required constant cues to pay attention while eating, not try to talk and practice a 2:1 ratio/ 2 bites and 1 swallow to maintain safety. Spoke to the medical records assistant, program proposals coordinator and natural sciences department chair. The descision was made the ARU could not meet this patient's needs at this time. Karen Rivera RN Clinical Liaison, Rehab
--- NOTE | 2019-10-08 14:59 | MORECARE ---
CASE MANAGEMENT DISCHARGE SUMMARY PATIENT: KAVON GOLDSMITH UNIT: [id number] ADM DATE: 09/17/19 AGE: 48 : 70 SEX: F ROOM/BED: D.2205 AUTHOR: ENEDINADOC PHYSICIAN: REFERRING PHYSICIAN: MARLENE RIBERA MD DATE OF SERVICE: 10/08/19 Discharge Plan Patient Name: KAVON GOLDSMITH Facility: [facility]:[place] : 1970 Planned Disposition: Inpatient Rehab Anticipated Discharge Date: Discharge Date: Expected LOS: Initial Reviewer: [email or web address] Initial Review Date: 09/17/2019 Generated: 10/08/19 3:58 pm Comments DCP- Discharge Planning Updated by [email or web address]: Ericka Espinosa on 10/08/19 12:[address] patient will be discharging to inpatient rehab at [facility] imm served and signed mom at bedside cm to follow and assist as needed DCP- Discharge Planning Updated by [email or web address]: Ericka Espinosa on 09/19/19 10:[address] Patient Name: KAVON GOLDSMITH Admission Status: ER Accout number: [id number] Admission Date: 09-17-2019 : 1970 Admission Diagnosis: Attending: PETER Current LOS: 2 Anticipated DC Date: Planned Disposition: Inpatient Rehab Primary Insurance: [facility] Discharge Planning Comments: PRABHJOT spoke with patients /ex- about discharge plan. He stated that they have built a 400x 12 ft cabin on her parents property where she can be independent with her care. She has a electric wheelchair, walker, scooter, service dog. Per her she started having seizures in 2013 after she had a stroke. He stated that her legs were very weak. He said that she did walk at home with her walker. He has made her cabin accessible for her with rails on her toilet. Her home address is [address] [place] [address] in [place] [address]. her cell number is [phone]. He would like her to go to inpatient rehab here at [facility]. He said he did not think that she would go to a alf home. He would like her to go to [facility] after inpatient rehab if needed. CM will speak to patient to see what her plan is. Binu was very helpful and seem like he is a good support system for her. Radio Television Technical Director: Ericka Espinosa DCPIA - Discharge Planning Initial Assessment Updated by [id number]: Ericka Espinosa on 09/19/19 10:37 am * Is the patient Alert and Oriented? Yes * How many steps to enter\exit or inside your home? * PCP [place]S * Preadmission Environment Home Alone * ADLs Partial Dependent * Partial ADLs (Assistance needed) Ambulation Medication Management Toileting * Equipment Bedside Commode Grab Bars Power Chair or Electric Scooter Rolling Walker Shower Chair Walker Wheelchair * Other Equipment SERVICE DOG * List name and contact numbers for known caregivers / representatives who currently or will assist patient after discharge: BINU GOLDSMITH- [phone] * Verbal permission to speak to the caregivers and representatives has been obtained from the patient. Yes * Additional services required to return to the preadmission environment? Yes * Has this patient been hospitalized within the prior 30 days at any hospital? Yes External Providers External Provider: [facility] Next Contact Date: Service Request Date: Service Type: Resolution: Reviewer: Comments: Coverage Notice Reviewer: [id number] Zeinab Espinosa Notice Issued Date-Time: 10/08/2019 12:50 Notice Type: IM Discharge Notice Notice Delivered To: Patient Relationship to Patient: Farm Crew Member Name: Delivery Method: HAND - Hand Delivered Lisandra Days: Prior Verbal Notification: Recipient Understood Notice: Yes Recipient Signature: Yes Med Rec Note Co-signed by Attending: Coverage Notice Comment: Reviewer: [id number] Zeinab Espinosa Notice Issued Date-Time: 10/08/2019 12:50 Notice Type: Patient Choice Letter Notice Delivered To: Patient Relationship to Patient: Farm Crew Member Name: Delivery Method: HAND - Hand Delivered Lisandra Days: Prior Verbal Notification: Recipient Understood Notice: Yes Recipient Signature: Yes Med Rec Note Co-signed by Attending: Coverage Notice Comment: inpatient rehab Last DP export: 10/08/19 12:05 p Patient Name: KAVON GOLDSMITH Page [id number] at 1456 All edits/amendments must be made on the electronic document DICTATION DATE: 10/08/191457 CRIMINAL RESEARCH SPECIALIST: SOFI 10/08/191457 RPT#: [id number] DC DATE: STATUS: ADM IN [facility] [address] [place] [address] END OF REPORT
--- NOTE | 2019-10-08 15:16 | MORECARE ---
CASE MANAGEMENT DISCHARGE SUMMARY PATIENT: KAVON GOLDSMITH UNIT: [id number] ADM DATE: 09/17/19 AGE: 48 : 70 SEX: F ROOM/BED: D.2205 AUTHOR: ENEDINA,DOC PHYSICIAN: REFERRING PHYSICIAN: MARLENE RIBERA MD DATE OF SERVICE: 10/08/19 Discharge Plan Patient Name: KAVON GOLDSMITH Facility: [facility]:[place] : 1970 Planned Disposition: Inpatient Rehab Anticipated Discharge Date: Discharge Date: Expected LOS: Initial Reviewer: [id number] Initial Review Date: 09/17/2019 Generated: 10/08/19 4:15 pm Comments DCP- Discharge Planning Updated by [email or web address]: Ericka Espinosa on 10/08/19 2:[address] AFTER RECEIVING AUTH FROM OUR INPATIENT REHAB I RECEIVED A CALL FROM [facility] THAT THEY WOULD NOT ACCEPT HER BECAUSE OF STAFFING AND QUESTION WITH FEEDS. MCKENNA PADILLA HAS SPOKEN TO THE PATIENT ABOUT THIS. A NEW REFERRAL WAS SENT TO [facility] STATED THAT THEY WOULD TRANSFER THE AUTH TO [facility] IF THEY ACCEPT. CM TO FOLLOW AND ASSIST NEEDED DCP- Discharge Planning Updated by [email or web address]: Ericka Espinosa on 10/08/19 12:[address] patient will be discharging to inpatient rehab at [facility] imm served and signed mom at bedside cm to follow and assist as needed DCP- Discharge Planning Updated by [email or web address]: Ericka Espinosa on 09/19/19 10:[address] Patient Name: KAVON GOLDSMITH Admission Status: ER Accout number: [id number] Admission Date: 09-17-2019 : 1970 Admission Diagnosis: Attending: PETER Current LOS: 2 Anticipated DC Date: Planned Disposition: Inpatient Rehab [facility] Discharge Planning Comments: CM spoke with patients /ex- about discharge plan. He stated that they have built a 400x 12 ft cabin on her parents property where she can be independent with her care. She has a electric wheelchair, walker, scooter, service dog. Per her she started having seizures in 2013 after she had a stroke. He stated that her legs were very weak. He said that she did walk at home with her walker. He has made her cabin accessible for her with rails on her toilet. Her home address is [address] [place] [address] in [place] [address]. her cell number is [phone]. He would like her to go to inpatient rehab here at [facility]. He said he did not think that she would go to a retirement home. He would like her to go to [facility] after inpatient rehab if needed. CM will speak to patient to see what her plan is. Binu was very helpful and seem like he is a good support system for her. Manager Part: Ericka Espinosa DCPIA - Discharge Planning Initial Assessment Updated by [email or web address]: Ericka Espinosa on 09/19/19 10:37 am * Is the patient Alert and Oriented? Yes * How many steps to enter\exit or inside your home? * PCP JANNETH * Preadmission Environment Home Alone * ADLs Partial Dependent * Partial ADLs (Assistance needed) Ambulation Medication Management Toileting * Equipment Bedside Commode Grab Bars Power Chair or Electric Scooter Rolling Walker Shower Chair Walker Wheelchair * Other Equipment SERVICE DOG * List name and contact numbers for known caregivers / representatives who currently or will assist patient after discharge: BINU GOLDSMITH- [phone] * Verbal permission to speak to the caregivers and representatives has been obtained from the patient. Yes * Additional services required to return to the preadmission environment? Yes * Has this patient been hospitalized within the prior 30 days at any hospital? Yes Coverage Notice Reviewer: [email or web address] Zeinab Espinosa Notice Issued Date-Time: 10/08/2019 12:50 Notice Type: IM Discharge Notice Notice Delivered To: Patient Relationship to Patient: Aeronautical Products Sales Engineer Name: Delivery Method: HAND - Hand Delivered Lisandra Days: Prior Verbal Notification: Recipient Understood Notice: Yes Recipient Signature: Yes Med Rec Note Co-signed by Attending: Coverage Notice Comment: Reviewer: [id number] Zeinab Espinosa Notice Issued Date-Time: 10/08/2019 12:50 Notice Type: Patient Choice Letter Notice Delivered To: Patient Relationship to Patient: Aeronautical Products Sales Engineer Name: Delivery Method: HAND - Hand Delivered Lisandra Days: Prior Verbal Notification: Recipient Understood Notice: Yes Recipient Signature: Yes Med Rec Note Co-signed by Attending: Coverage Notice Comment: inpatient rehab Last DP export: 10/08/19 1:59 p Patient Name: KAVON GOLDSMITH Page [phone] at 1516 All edits/amendments must be made on the electronic document DICTATION DATE: 10/08/191514 INDUSTRIAL SALES ENGINEER: SOFI 10/08/191514 RPT#: [id number] DC DATE: STATUS: ADM IN [facility] [address] [place] [address] END OF REPORT
[2019-10-08 18:10] VITALS: BP 100/52
[2019-10-08 20:00] VITALS: BP 107/50
--- NOTE | 2019-10-08 20:03 | NUR ---
CHANGED RIGHT JUG CENTRAL LINE DRESSING, STAT LOCK ON THE HAMILTON, BIALTERAL LOWER LEG DRESSINGS AND CHANGED THE PEG DRESSING. STARTED HER TUBE FEEDING BACK AT 30 CC PER HOUR.
[2019-10-09] VITALS: BP 100/50
[2019-10-09 04:00] VITALS: BP 98/43
[2019-10-09 06:55] LABS: BASOPHILS 0.2 % (0-2); EOSINOPHILS 1.2 % (0-7); HEMATOCRIT 25.2 % (36.0-48.0); IMMATURE GRANULOCYTES 1.7 % (0-5); LYMPHOCYTES 32.3 % (15-50); MCH 36.5 pg (26.0-34.0); MCHC 31.7 g/dL (31.0-37.0); MCV 115.1 fL (80.0-100.0); MEAN PLATELET VOLUME 9.7 fL (7.4-10.4); MONOCYTES 9.5 % (2-11); NEUTROPHILS 55.1 % (40-80); PLATELET COUNT 368 10x3/uL (130-400); RBC 2.19 10x6/uL (4.00-5.40); RDW 13.5 % (11.5-14.5); WBC 10.9 10x3/uL (4.8-10.8)
--- NOTE | 2019-10-09 07:22 | NUR ---
ASSESSED AT THE CHANGE OF NURSES JUST AFTER MIDNIGHT. PT IS SOMEWHAT CONFUSED BUT ANSWERS MOST QUESTIONS CORRECTLY. AT ABOUT 0215 SHE CALLED FOR HER BREAKFAST TRAY AND WAS ORIENTED TO THE TIME IT WAS AND WHEN DIETARY CAME IN. AFTER THAT SHE REQUESTED PAIN MEDS AND IT WAS TOO EARLY. SHE GOT UPSET AND CALLED HER . AFTER TALKING WITH HIM FOR A FEW MINUTES SHE STARTED TALKING IF SHE WAS UNABLE TO GET WORDS OUT. HE THEN CALLED US AND ASKED US TO CHECK ON HER BECAUSE SHE WAS HAVING A SEIZURE. WE DID AND AFTER A FEW MINUTES OF ASKING HER QUESTIONS THAT SHE ANSWERED THE HALTING SPEECH STOPPED. SHE TALKED ABOUT HER DOG AND OTHER THINGS WITH NO PROBLEM. SHE WAS THEN TOLD SHE COULD HAVE HER PAIN MED AT JUST BEFORE 0400. HER TALKED TO HER FOR THE NEXT HOUR BEFORE HE HAD TO GO TO WORK. JUST BEFORE 0400 SHE RECEIVED HER PAIN MED AND HAS NOT HAD ANY COMPLAINTS SINCE. HER DAUGHTER CAME UP ABOUT 0600 AND IS NOW IN THE ROOM WITH HER AND THEY ARE BOTH ASLEEP.
--- NOTE | 2019-10-09 07:45 | NUR ---
AWAKE AND ALERT. ORIENTED X3. NO C/O AT THIS TIME. LUNGS ARE CLEAR BILATERALLY, NO COUGH NOTED. SKIN IS INTACT WITHOUT REDNESS EXCEPT AREAS TO SHINS WHICH WERE OOZING BUT NOT NOW. WILL CONTINUE TO MONITOR. RIGHT IJ IS PATENT WITHOUT REDNESS AT INSERTION SITE. DENIES NEEDS.
[2019-10-09 07:59] LABS: CALC OSMOLALITY 270 mosm/kg (275-300); CALCIUM 7.3 mg/dL (8.5-10.1); CARBON DIOXIDE 30.6 mmol/L (21.0-32.0); CHLORIDE - SERUM 104 mmol/L (98-107); CREATININE - SERUM 0.3 mg/dL (0.6-1.3); GLUCOSE 92 mg/dL (74-106); MAGNESIUM - SERUM 2.2 mg/dL (1.8-2.4); PHOSPHOROUS 2.4 mg/dL (2.5-4.9); POTASSIUM - SERUM 4.3 mmol/L (3.5-5.1); SODIUM 136 mmol/L (136-145); UREA NITROGEN 11 mg/dL (7-18); eGFR NON AFRICAN AMERICAN > 90 mL/min (90-120)
[2019-10-09 09:12] VITALS: BP 91/45
--- NOTE | 2019-10-09 10:07 | NUR ---
REQUESTED AND GIVEN 1MG MORPHINE SLOW IVP FOR C/O BACK AND RIGHT SIDED PAIN LEVEL 10. WILL MONITOR. TOOK ALL AM MEDS PO WITHOUT DIFFICULTY.
--- NOTE | 2019-10-09 12:02 | NUR ---
OT NOTE: ATTEMPTED TMT IN AM.. PT ON PHONE WITH HER MOTHER AND CRYING DUE TO NOT BEING ABLE TO GO TO REHAB. PT REMAINED ON PHONE.. TOLD DTR THAT I WOULD TRY TO ATTEMPT IN PM IF POSSIBLE. SUMANTH CHOW, OTR/L
--- NOTE | 2019-10-09 12:04 | MORECARE ---
CASE MANAGEMENT DISCHARGE SUMMARY PATIENT: KAVON GOLDSMITH UNIT: [id number] ADM DATE: 09/17/19 AGE: 48 : 70 SEX: F ROOM/BED: D.2205 AUTHOR: ENEDINA,DOC PHYSICIAN: REFERRING PHYSICIAN: MARLENE RIBERA MD DATE OF SERVICE: 10/09/19 Discharge Plan Patient Name: KAVON GOLDSMITH Facility: [facility]:[place] : 1970 Planned Disposition: Inpatient Rehab Anticipated Discharge Date: Discharge Date: Expected LOS: Initial Reviewer: [email or web address] Initial Review Date: 09/17/2019 Generated: 10/09/19 1:03 pm Comments DCP- Discharge Planning Updated by [email or web address]: Ericka Espinosa on 10/08/19 2:[address] AFTER RECEIVING AUTH FROM OUR INPATIENT REHAB I RECEIVED A CALL FROM JULIANA THAT THEY WOULD NOT ACCEPT HER BECAUSE OF STAFFING AND QUESTION WITH FEEDS. MCKENNA PADILLA HAS SPOKEN TO THE PATIENT ABOUT THIS. A NEW REFERRAL WAS SENT TO [facility] JULIANA STATED THAT THEY WOULD TRANSFER THE AUTH TO [facility] IF THEY ACCEPT. CM TO FOLLOW AND ASSIST NEEDED DCP- Discharge Planning Updated by [email or web address]: Ericka Espinosa on 10/08/19 12:[address] patient will be discharging to inpatient rehab at [facility] imm served and signed mom at bedside cm to follow and assist as needed DCP- Discharge Planning Updated by [email or web address]: Ericka Espinosa on 09/19/19 10:[address] Patient Name: KAVON GOLDSMITH Admission Status: ER Accout number: [id number] Admission Date: 09-17-2019 : 1970 Admission Diagnosis: Attending: PETER Current LOS: 2 Anticipated DC Date: Planned Disposition: Inpatient Rehab [facility] Discharge Planning Comments: CM spoke with patients /ex- about discharge plan. He stated that they have built a 400x 12 ft cabin on her parents property where she can be independent with her care. She has a electric wheelchair, walker, scooter, service dog. Per her she started having seizures in 2013 after she had a stroke. He stated that her legs were very weak. He said that she did walk at home with her walker. He has made her cabin accessible for her with rails on her toilet. Her home address is [address] [place] [address] [place] [address]. her cell number is [phone]. He would like her to go to inpatient rehab here at [facility]. He said he did not think that she would go to a prison home. He would like her to go to [facility] after inpatient rehab if needed. CM will speak to patient to see what her plan is. Binu was very helpful and seem like he is a good support system for her. Psychotherapist Social Worker: Ericka Espinosa DCPIA - Discharge Planning Initial Assessment Updated by [email or web address]: Ericka Espinosa on 09/19/19 10:37 am * Is the patient Alert and Oriented? Yes * How many steps to enter\exit or inside your home? * PCP JANNETH * Preadmission Environment Home Alone * ADLs Partial Dependent * Partial ADLs (Assistance needed) Ambulation Medication Management Toileting * Equipment Bedside Commode Grab Bars Power Chair or Electric Scooter Rolling Walker Shower Chair Walker Wheelchair * Other Equipment SERVICE DOG * List name and contact numbers for known caregivers / representatives who currently or will assist patient after discharge: BINU GOLDSMITH- [phone] * Verbal permission to speak to the caregivers and representatives has been obtained from the patient. Yes * Additional services required to return to the preadmission environment? Yes * Has this patient been hospitalized within the prior 30 days at any hospital? Yes External Providers External Provider: [facility] Next Contact Date: Service Request Date: Service Type: Resolution: Reviewer: Comments: Coverage Notice Reviewer: [id number] Zeinab Espinosa Notice Issued Date-Time: 10/08/2019 12:50 Notice Type: IM Discharge Notice Notice Delivered To: Patient Relationship to Patient: Rug Backing Stenciler Name: Delivery Method: HAND - Hand Delivered Lisandra Days: Prior Verbal Notification: Recipient Understood Notice: Yes Recipient Signature: Yes Med Rec Note Co-signed by Attending: Coverage Notice Comment: Reviewer: [email or web address] Zeinab Espinosa Notice Issued Date-Time: 10/08/2019 12:50 Notice Type: Patient Choice Letter Notice Delivered To: Patient Relationship to Patient: Rug Backing Stenciler Name: Delivery Method: HAND - Hand Delivered Lisandra Days: Prior Verbal Notification: Recipient Understood Notice: Yes Recipient Signature: Yes Med Rec Note Co-signed by Attending: Coverage Notice Comment: inpatient rehab Last DP export: 10/08/19 2:16 p Patient Name: KAVON GOLDSMITH Page [phone] at 1204 All edits/amendments must be made on the electronic document DICTATION DATE: 10/09/191202 CUSTOMER DEVELOPMENT REPRESENTATIVE: SOFI 10/09/193 RPT#: [id number] DC DATE: STATUS: ADM IN [facility] [address] [place] [address] END OF REPORT
--- NOTE | 2019-10-09 12:12 | MORECARE ---
CASE MANAGEMENT DISCHARGE SUMMARY PATIENT: KAVON GOLDSMITH UNIT: [id number] ADM DATE: 09/17/19 AGE: 48 : 70 SEX: F ROOM/BED: D.2205 AUTHOR: ENEDINA,DOC PHYSICIAN: REFERRING PHYSICIAN: MARLENE RIBERA MD DATE OF SERVICE: 10/09/19 Discharge Plan Patient Name: KAVON GOLDSMITH Facility: [facility]:[place] : 1970 Planned Disposition: Inpatient Rehab Anticipated Discharge Date: Discharge Date: Expected LOS: Initial Reviewer: [id number] Initial Review Date: 09/17/2019 Generated: 10/09/19 1:11 pm Comments DCP- Discharge Planning Updated by [email or web address]: Ericka Espinosa on 10/09/19 11:[address] referral sent to [facility], I spoke with sana DCP- Discharge Planning Updated by [id number]: Ericka Espinosa on 10/08/19 2:[address] AFTER RECEIVING AUTH FROM OUR INPATIENT REHAB I RECEIVED A CALL FROM JULIANA THAT THEY WOULD NOT ACCEPT HER BECAUSE OF STAFFING AND QUESTION WITH FEEDS. MCKENNA PADILLA HAS SPOKEN TO THE PATIENT ABOUT THIS. A NEW REFERRAL WAS SENT TO [facility] J[facility] STATED THAT THEY WOULD TRANSFER THE AUTH TO [facility] IF THEY ACCEPT. CM TO FOLLOW AND ASSIST NEEDED DCP- Discharge Planning Updated by [email or web address]: Ericka Espinosa on 10/08/19 12:[address] patient will be discharging to inpatient rehab at [facility] imm served and signed mom at bedside cm to follow and assist as needed DCP- Discharge Planning Updated by [email or web address]: Ericka Espinosa on 09/19/19 10:[address] Patient Name: KAVON GOLDSMITH Admission Status: ER Accout number: [id number] Admission Date: 09-17-2019 : 1970 Admission Diagnosis: Attending: PETER Current LOS: 2 Anticipated DC Date: Planned Disposition: Inpatient Rehab Primary Insurance: [facility] Discharge Planning Comments: CM spoke with patients /ex- about discharge plan. He stated that they have built a 400x 12 ft cabin on her parents property where she can be independent with her care. She has a electric wheelchair, walker, scooter, service dog. Per her she started having seizures in 2013 after she had a stroke. He stated that her legs were very weak. He said that she did walk at home with her walker. He has made her cabin accessible for her with rails on her toilet. Her home address is [address] [place] [address]. her cell number is [phone]. He would like her to go to inpatient rehab here at [facility]. He said he did not think that she would go to a residential home. He would like her to go to [facility] after inpatient rehab if needed. CM will speak to patient to see what her plan is. Binu was very helpful and seem like he is a good support system for her. Websphere Portal Architect: Ericka Espinosa DCPIA - Discharge Planning Initial Assessment Updated by [email or web address]: Ericka Espinosa on 09/19/19 10:37 am * Is the patient Alert and Oriented? Yes * How many steps to enter\exit or inside your home? * PCP JANNETH * Preadmission Environment Home Alone * ADLs Partial Dependent * Partial ADLs (Assistance needed) Ambulation Medication Management Toileting * Equipment Bedside Commode Grab Bars Power Chair or Electric Scooter Rolling Walker Shower Chair Walker Wheelchair * Other Equipment SERVICE DOG * List name and contact numbers for known caregivers / representatives who currently or will assist patient after discharge: BINU GOLDSMITH- [phone] * Verbal permission to speak to the caregivers and representatives has been obtained from the patient. Yes * Additional services required to return to the preadmission environment? Yes * Has this patient been hospitalized within the prior 30 days at any hospital? Yes Coverage Notice Reviewer: [email or web address] Zeinab Espinosa Notice Issued Date-Time: 10/08/2019 12:50 Notice Type: IM Discharge Notice Notice Delivered To: Patient Relationship to Patient: Assistant Paralegal Name: Delivery Method: HAND - Hand Delivered Lisandra Days: Prior Verbal Notification: Recipient Understood Notice: Yes Recipient Signature: Yes Med Rec Note Co-signed by Attending: Coverage Notice Comment: Reviewer: [id number] Zeinab Espinosa Notice Issued Date-Time: 10/08/2019 12:50 Notice Type: Patient Choice Letter Notice Delivered To: Patient Relationship to Patient: Assistant Paralegal Name: Delivery Method: HAND - Hand Delivered Lisandra Days: Prior Verbal Notification: Recipient Understood Notice: Yes Recipient Signature: Yes Med Rec Note Co-signed by Attending: Coverage Notice Comment: inpatient rehab Last DP export: 10/09/19 11:04 a Patient Name: KAVON GOLDSMITH Page [id number] at 1212 All edits/amendments must be made on the electronic document DICTATION DATE: 10/09/19 1211 AD OPERATIONS INTERN: SOFI 10/09/19 1211 RPT#: [id number] DC DATE: STATUS: ADM IN [facility] [address] [place] [address] END OF REPORT
[2019-10-09 13:02] VITALS: BP 106/64
--- NOTE | 2019-10-09 13:22 | OP ---
PATIENT NAME: KAVON GOLDSMITH MEDICAL RECORD: [id number] :[birth year] LOCATION:D.MS [address] ADMISSION DATE:09/17/19 SURGEON: JOSE TARIQ MD DATE OF OPERATION: 09/25/2019 PREOPERATIVE DIAGNOSES: 1. Dysphagia. 2. CVA. 3. Jezfakn-Uzfez-Jyuxe syndrome. 4. Seizure disorder. POSTOPERATIVE DIAGNOSES: 1. Dysphagia. 2. CVA. 3. Gojviol-Xxtfk-Ypnas syndrome. 4. Seizure disorder. PROCEDURE: Laparoscopic 20-Dominican gastrostomy tube placement. SURGEON: Jose Tariq MD REPORT OF PROCEDURE: The patient's abdomen was prepped and draped in sterile fashion. A Veress needle was inserted in the left upper quadrant and a Visiport trocar 5 mm in size was placed just to the right of the patient's umbilicus. Once we entered, we could see some adhesions present in the patient's left upper quadrant from her previous gastric bypass surgery. The Veress needle was visualized and there was no injury to bowel or surrounding structures, so this was removed. Another 5 mm trocar was then placed in the right upper quadrant and a final 5 mm trocar was placed just to the left of midline. The patient's adhesions were all teased down carefully with electrocautery. The adhesions were mainly of the omentum to the anterior abdominal wall but as we got closer, we could see there were some adhesions of the gastric remnant to the left lobe of the liver. We dissected these free until we had good visualization of the anterior aspect of the liver. We tried to dissect this as free as possible to give better mobilization of the stomach for the gastrostomy tube. Once we had this mobilized well, then we found an area on the body of the stomach to house our tube. A 3-0 silk was used to make a pursestring and an opening was then made in the stomach inside the pursestring using electrocautery. We then dissected into the gastric lumen. A 20-Dominican G-tube was brought in through an opening in the left subcostal region and the balloon was advanced into the gastric lumen through the pursestring. The pursestring was then tied down tightly around this. We then insufflated the balloon and brought the gastric wall up to the anterior abdominal wall and 3-0 silks times 2 were used to suture the stomach to the anterior abdominal wall. Once this was in place, then the insufflation was removed and there appeared to be good approximation of the anterior gastric wall to the anterior abdominal wall. The ports and insufflation were then removed. We then infused a total of 10 mL of 0.25% Marcaine with epinephrine into the surrounding tissues and the skin incisions were closed with subcutaneous 5-0 Monocryl. COMPLICATIONS: None. CONDITION: Stable. ANESTHESIA: General endotracheal and local. OPERATIVE REPORT [id number] KAVON GOLDSMITH BLOOD LOSS: Minimal. NTS:[id number] Voice Confirmation ID: [id number] DOCUMENT ID: [id number] JOSE TARIQ MD at 1322 CC: [id number] DICTATION DATE: 09/25/19 1341 SOAKER MEAT: 09/26/19 0013 ADM IN [facility] [address] [place] [address]
--- NOTE | 2019-10-09 14:02 | NUR ---
REQUESTED AND GIVEN 1MG MORPHINE SLOW IVP FOR C/O BACK AND RIGHT SIDED PAIN LEVEL 7. WILL MONITOR. . DAUGHTER AT BEDSIDE.
--- NOTE | 2019-10-09 15:01 | MORECARE ---
CASE MANAGEMENT DISCHARGE SUMMARY PATIENT: KAVON GOLDSMITH UNIT: [id number] ADM DATE: 09/17/19 AGE: 48 : 70 SEX: F ROOM/BED: D.2205 AUTHOR: ENEDINA,DOC PHYSICIAN: REFERRING PHYSICIAN: MARLENE RIBERA MD DATE OF SERVICE: 10/09/19 Discharge Plan Patient Name: KAVON GOLDSMITH Facility: [facility]:[place] : 1970 Planned Disposition: Inpatient Rehab Anticipated Discharge Date: Discharge Date: Expected LOS: Initial Reviewer: [id number] Initial Review Date: 09/17/2019 Generated: 10/09/19 4:00 pm Comments DCP- Discharge Planning Updated by [id number]: Ericka Espinosa on 10/09/19 1:[address] [facility] CALLED AND STATED THAT THEY ARE NOT IN NETWORK WITH HER INSURANCE I WILL SEND THE REFERRAL TO [facility] DCP- Discharge Planning Updated by [email or web address]: Ericka Espinosa on 10/09/19 11:[address] referral sent to [facility], I spoke with sana DCP- Discharge Planning Updated by [email or web address]: Ericka Espinosa on 10/08/19 2:[address] AFTER RECEIVING AUTH FROM OUR [facility]PATIENT [facility] I RECEIVED A CALL FROM JUL[facility] THAT THEY WOULD NOT ACCEPT HER BECAUSE OF STAFFING AND QUESTION WITH FEEDS. MCKENNA PADILLA HAS SPOKEN TO THE PATIENT ABOUT THIS. A NEW REFERRAL WAS SENT TO [facility] JULIANA STATED THAT THEY WOULD TRANSFER THE AUTH TO [facility] IF THEY ACCEPT. CM TO FOLLOW AND ASSIST NEEDED DCP- Discharge Planning Updated by [id number]: Ericka Espinosa on 10/08/19 12:[address] patient will be discharging to inpatient rehab at [facility] imm served and signed mom at bedside cm to follow and assist as needed DCP- Discharge Planning Updated by [id number]: Ericka Espinosa on 09/19/19 10:[address] Patient Name: KAVON GOLDSMITH Admission Status: ER Accout number: [id number] Admission Date: 09-17-2019 : 1970 Admission Diagnosis: Attending: PETER Current LOS: 2 Anticipated DC Date: Planned Disposition: Inpatient Rehab [facility] Discharge Planning Comments: CM spoke with patients /ex- about discharge plan. He stated that they have built a 400x 12 ft cabin on her parents property where she can be independent with her care. She has a electric wheelchair, walker, scooter, service dog. Per her she started having seizures in 2013 after she had a stroke. He stated that her legs were very weak. He said that she did walk at home with her walker. He has made her cabin accessible for her with rails on her toilet. Her home address is [address] [place] [address]. her cell number is [phone]. He would like her to go to inpatient rehab here at [facility]. He said he did not think that she would go to a penitentiary home. He would like her to go to [facility] after inpatient rehab if needed. CM will speak to patient to see what her plan is. Binu was very helpful and seem like he is a good support system for her. Mutuel Cashier: Ericka Espinosa DCPIA - Discharge Planning Initial Assessment Updated by [email or web address]: Ericka Espinosa on 09/19/19 10:37 am * Is the patient Alert and Oriented? Yes * How many steps to enter\exit or inside your home? * PCP JANNETH * Preadmission Environment Home Alone * ADLs Partial Dependent * Partial ADLs (Assistance needed) Ambulation Medication Management Toileting * Equipment Bedside Commode Grab Bars Power Chair or Electric Scooter Rolling Walker Shower Chair Walker Wheelchair * Other Equipment SERVICE DOG * List name and contact numbers for known caregivers / representatives who currently or will assist patient after discharge: BINU GOLDSMITH- [phone] * Verbal permission to speak to the caregivers and representatives has been obtained from the patient. Yes * Additional services required to return to the preadmission environment? Yes * Has this patient been hospitalized within the prior 30 days at any hospital? Yes External Providers External Provider: [facility] Next Contact Date: Service Request Date: Service Type: Resolution: Reviewer: Comments: Coverage Notice Reviewer: [id number] - Ericka Espinosa Notice Issued Date-Time: 10/08/2019 12:50 Notice Type: IM Discharge Notice Notice Delivered To: Patient Relationship to Patient: Coke Crane Operator Name: Delivery Method: HAND - Hand Delivered Lisandra Days: Prior Verbal Notification: Recipient Understood Notice: Yes Recipient Signature: Yes Med Rec Note Co-signed by Attending: Coverage Notice Comment: Reviewer: [id number] - Ericka Espinosa Notice Issued Date-Time: 10/08/2019 12:50 Notice Type: Patient Choice Letter Notice Delivered To: Patient Relationship to Patient: Coke Crane Operator Name: Delivery Method: HAND - Hand Delivered Lisandra Days: Prior Verbal Notification: Recipient Understood Notice: Yes Recipient Signature: Yes Med Rec Note Co-signed by Attending: Coverage Notice Comment: inpatient rehab Last DP export: 10/09/19 11:12 a Patient Name: KAVON GOLDSMITH Page [id number] at 1501 All edits/amendments must be made on the electronic document DICTATION DATE: 10/09/191499 IMAGING SERVICES DIRECTOR: SOFI 10/09/191499 RPT#: [id number] DC DATE: STATUS: ADM IN [facility] [address] [place] [address] END OF REPORT
[2019-10-09 17:22] VITALS: BP 96/59
--- NOTE | 2019-10-09 19:15 | NUR ---
AWAKEND TO EAT SUPPER. NOT HUNGRY AT THIS TIME. REQUESTED AND GIVEN 1MG MORPHINE SLOW IVP FOR C/O RIGHT SIDE AND BACK PAIN LEVEL 8. WILL MONITOR.
[2019-10-09 20:00] VITALS: BP 101/45
--- NOTE | 2019-10-10 03:10 | NUR ---
ASSESSED AT THE BEGINNING OF THE SHIFT. PT IS ALERT AND CONFUSED. SHE IS ABLE TO ASK FOR HER NEEDS. MOST OF HER CONFUSION COMES FROM NOT REALIZING THE TIME. SHE ASKED FOR PAIN MEDS AND FOOD TRAYS IF THEY OR LATE WHEN IT IS NOT ANYWHERE NEAR THE TIME. WE HAVE EXPLAINED THAT DINNER TRAY WAS THE LAST TRAY AND BREAKFAST DOSENT COME TILL 8 AM MULTIPLE TIMES. EVERY FOUR HRS SHE IS GETTING PAIN MEDS ORDERED AND SHE HAS REQUESTED MULTIPLE TIMES. AT THIS TIME SHE IS ASLEEP WITH NO DISTRESS NOTED.
[2019-10-10 04:00] VITALS: BP 99/52
[2019-10-10 07:08] LABS: BASOPHILS 0.2 % (0-2); CALC OSMOLALITY 279 mosm/kg (275-300); CALCIUM 7.9 mg/dL (8.5-10.1); CARBON DIOXIDE 30.5 mmol/L (21.0-32.0); CHLORIDE - SERUM 107 mmol/L (98-107); CREATININE - SERUM 0.4 mg/dL (0.6-1.3); EOSINOPHILS 1.7 % (0-7); GLUCOSE 80 mg/dL (74-106); HEMATOCRIT 26.7 % (36.0-48.0); HEMOGLOBIN 8.5 g/dL (12-16); IMMATURE GRANULOCYTES 1.9 % (0-5); MAGNESIUM - SERUM 2.3 mg/dL (1.8-2.4); MCH 36.3 pg (26.0-34.0); MCHC 31.8 g/dL (31.0-37.0); MCV 114.1 fL (80.0-100.0); MEAN PLATELET VOLUME 9.3 fL (7.4-10.4); MONOCYTES 8.6 % (2-11); NEUTROPHILS 54.6 % (40-80); PLATELET COUNT 402 10x3/uL (130-400); POTASSIUM - SERUM 4.4 mmol/L (3.5-5.1); RBC 2.34 10x6/uL (4.00-5.40); RDW 13.6 % (11.5-14.5); SODIUM 141 mmol/L (136-145); UREA NITROGEN 12 mg/dL (7-18); WBC 9.8 10x3/uL (4.8-10.8); eGFR NON AFRICAN AMERICAN > 90 mL/min (90-120)
--- NOTE | 2019-10-10 08:30 | NUR ---
PT LAYING IN BED, A&O X3, DISORIENTATED TO TIME. C/O PAIN 08/21, PROVIDED MEDS PER ORDER. CENTRAL LINE IN RIGHT JUGULAR, PATENT, NO REDNESS OR SWELLING, S/L. FLOEY IN PLACE, PATENT, CONCENTRATED URINE, STATLOCK IN PLACE. INCONTINENT OF BOWELS. REDDEND AREA ON COCCYX, SKIN TEARS, APPLIED ALAN LOTION TO AREA. SKIN ABRASIONS ON BILAT LOWER EXTREMITIES, DRSG C/D/I. LUE WEAK AND STIFF. EDUCATED PT ON RESP CULTURE NEEDED. EDUCATED PT AND FAMILY ON CL AND NEEDS. BED LOW, RAILS X2. CL IN REACH. WILL CONTINUE TO MONITOR.
[2019-10-10 08:46] VITALS: BP 107/48
--- NOTE | 2019-10-10 09:04 | MORECARE ---
CASE MANAGEMENT DISCHARGE SUMMARY PATIENT: KAVON GOLDSMITH UNIT: [id number] ADM DATE: 09/17/19 AGE: 48 : 70 SEX: F ROOM/BED: D.2205 AUTHOR: ENEDINA,DOC PHYSICIAN: REFERRING PHYSICIAN: MARLENE RIBERA MD DATE OF SERVICE: 10/10/19 Discharge Plan Patient Name: KAVON GOLDSMITH Facility: [facility]:[place] : 1970 Planned Disposition: Inpatient Rehab Anticipated Discharge Date: Discharge Date: Expected LOS: Initial Reviewer: [id number] Initial Review Date: 09/17/2019 Generated: 10/10/19 10:03 am Comments DCP- Discharge Planning Updated by [id number]: Ericka Espinosa on 10/10/19 8:[address] attempted to call the patient's mother to steam locomotive firer/fireman her an update on progress and was unsuccessful I did not get an answer DCP- Discharge Planning Updated by [id number]: Ericka Espinosa on 10/10/19 7:[address] spoke with Vilma landrum [facility] about patient and they are reviewing her chart DCP- Discharge Planning Updated by [email or web address]: Ericka Espinosa on 10/09/19 1:[address] [facility] CALLED AND STATED THAT THEY ARE NOT IN NETWORK WITH HER INSURANCE I WILL SEND THE REFERRAL TO [facility] DCP- Discharge Planning Updated by [id number]: Ericka Espinosa on 10/09/19 11:[address] referral sent to [facility], I spoke with sana DCP- Discharge Planning Updated by [id number]: Ericka Espinosa on 10/08/19 2:[address] AFTER RECEIVING AUTH FROM OUR INPATIENT REH[facility] I RECEIVED A CALL FROM JULIANA THAT THEY WOULD NOT ACCEPT HER BECAUSE OF STAFFING AND QUESTION WITH FEEDS. MCKENNA PADILLA HAS SPOKEN TO THE PATIENT ABOUT THIS. A NEW REFERRAL WAS SENT TO [facility] JULIANA STATED THAT THEY WOULD TRANSFER THE AUTH TO [facility] IF THEY ACCEPT. CM TO FOLLOW AND ASSIST NEEDED DCP- Discharge Planning Updated by [id number]: Ericka Espinosa on 10/08/19 12:[address] patient will be discharging to inpatient rehab at [facility] imm served and signed mom at bedside cm to follow and assist as needed DCP- Discharge Planning Updated by [email or web address]: Ericka Espinosa on 09/19/19 10:[address] Patient Name: KAVON GOLDSMITH Admission Status: ER Accout number: [id number] Admission Date: 09-17-2019 : 1970 Admission Diagnosis: Attending: PETER Current LOS: 2 Anticipated DC Date: Planned Disposition: Inpatient Rehab Primary Insurance: [employer] Discharge Planning Comments: CM spoke with patients /ex- about discharge plan. He stated that they have built a 400x 12 ft cabin on her parents property where she can be independent with her care. She has a electric wheelchair, walker, scooter, service dog. Per her she started having seizures in 2013 after she had a stroke. He stated that her legs were very weak. He said that she did walk at home with her walker. He has made her cabin accessible for her with rails on her toilet. Her home address is [address] [place] [address]. her cell number is [phone]. He would like her to go to inpatient rehab here at [facility]. He said he did not think that she would go to a half-way home. He would like her to go to [facility] after inpatient rehab if needed. CM will speak to patient to see what her plan is. Binu was very helpful and seem like he is a good support system for her. Compliance Project Manager: Ericka Espinosa DCPIA - Discharge Planning Initial Assessment Updated by [id number]: Ericka Espinosa on 09/19/19 10:37 am * Is the patient Alert and Oriented? Yes * How many steps to enter\exit or inside your home? * PCP JANNETH * Preadmission Environment Home Alone * ADLs Partial Dependent * Partial ADLs (Assistance needed) Ambulation Medication Management Toileting * Equipment Bedside Commode Grab Bars Power Chair or Electric Scooter Rolling Walker Shower Chair Walker Wheelchair * Other Equipment SERVICE DOG * List name and contact numbers for known caregivers / representatives who currently or will assist patient after discharge: BINU GOLDSMITH- [phone] * Verbal permission to speak to the caregivers and representatives has been obtained from the patient. Yes * Additional services required to return to the preadmission environment? Yes * Has this patient been hospitalized within the prior 30 days at any hospital? Yes Coverage Notice Reviewer: [id number] Zeinab Espinosa Notice Issued Date-Time: 10/08/2019 12:50 Notice Type: IM Discharge Notice Notice Delivered To: Patient Relationship to Patient: Physical Optics Teacher Name: Delivery Method: HAND - Hand Delivered Lisandra Days: Prior Verbal Notification: Recipient Understood Notice: Yes Recipient Signature: Yes Med Rec Note Co-signed by Attending: Coverage Notice Comment: Reviewer: [id number] Espinosa Notice Issued Date-Time: 10/08/2019 12:50 Notice Type: Patient Choice Letter Notice Delivered To: Patient Relationship to Patient: Physical Optics Teacher Name: Delivery Method: HAND - Hand Delivered Lisandra Days: Prior Verbal Notification: Recipient Understood Notice: Yes Recipient Signature: Yes Med Rec Note Co-signed by Attending: Coverage Notice Comment: inpatient rehab Last DP export: 10/09/19 2:01 p Patient Name: KAVON GOLDSMITH Page [id number] at 0904 All edits/amendments must be made on the electronic document DICTATION DATE: 10/10/19902 ARTS THERAPIST: SOFI 10/10/19902 RPT#: [id number] DC DATE: STATUS: ADM IN [facility] [address] [place] [address] END OF REPORT
--- NOTE | 2019-10-10 09:27 | MORECARE ---
CASE MANAGEMENT DISCHARGE SUMMARY PATIENT: KAVON GOLDSMITH UNIT: [id number] ADM DATE: 09/17/19 AGE: 48 : 70 SEX: F ROOM/BED: D.2205 AUTHOR: ENEDINA,DOC PHYSICIAN: REFERRING PHYSICIAN: MARLENE RIBERA MD DATE OF SERVICE: 10/10/19 Discharge Plan Patient Name: KAVON GOLDSMITH Facility: [facility]:[place] : 1970 Planned Disposition: Inpatient Rehab Anticipated Discharge Date: Discharge Date: Expected LOS: Initial Reviewer: [id number] Initial Review Date: 09/17/2019 Generated: 10/10/19 10:26 am Comments DCP- Discharge Planning Updated by [email or web address]: Ericka Espinosa on 10/10/19 8:[address] SPOKE TO MOTHER AND PATIENT AT LENGTH ABOUT WHAT THE PLAN AND WHAT PROGESS I HAVE MADE. CM WILL CONTINUE TO FOLLOW AND ASSSIT DCP- Discharge Planning Updated by [email or web address]: Ericka Espinosa on 10/10/19 8:[address] attempted to call the patient's mother to care giver her an update on progress and was unsuccessful I did not get an answer DCP- Discharge Planning Updated by [id number]: Ericka Espinosa on 10/10/19 7:[address] spoke with Vilma at [facility] about patient and they are reviewing her chart DCP- Discharge Planning Updated by [email or web address]: Ericka Espinosa on 10/09/19 1:[address] [facility] CALLED AND STATED THAT THEY ARE NOT IN NETWORK WITH HER INSURANCE I WILL SEND THE REFERRAL TO [facility] DCP- Discharge Planning Updated by [email or web address]: Ericka Espinosa on 10/09/19 11:[address] referral sent to [facility], I spoke with sana DCP- Discharge Planning Updated by [id number]: Ericka Espinosa on 10/08/19 2:[address] AFTER RECEIVING AUTH FROM OUR INPATIENT REH[facility] I RECEIVED A CALL FROM JULIANA THAT THEY WOULD NOT ACCEPT HER BECAUSE OF STAFFING AND QUESTION WITH FEEDS. MCKENNA PADILLA HAS SPOKEN TO THE PATIENT ABOUT THIS. A NEW REFERRAL WAS SENT TO [facility] JULIANA STATED THAT THEY WOULD TRANSFER THE AUTH TO [facility] IF THEY ACCEPT. CM TO FOLLOW AND ASSIST NEEDED DCP- Discharge Planning Updated by [id number]: Ericka Espinosa on 10/08/19 12:[address] patient will be discharging to inpatient rehab at [facility] imm served and signed mom at bedside cm to follow and assist as needed DCP- Discharge Planning Updated by [email or web address]: Ericka Espinosa on 09/19/19 10:[address] Patient Name: KAVON GOLDSMITH Admission Status: ER Accout number: [id number] Admission Date: 09-17-2019 : 1970 Admission Diagnosis: Attending: PETER Current LOS: 2 Anticipated DC Date: Planned Disposition: Inpatient Rehab Primary Insurance: [employer] Discharge Planning Comments: CM spoke with patients /ex- about discharge plan. He stated that they have built a 400x 12 [address] cabin on her parents property where she can be independent with her care. She has a electric wheelchair, walker, scooter, service dog. Per her she started having seizures in 2013 after she had a stroke. He stated that her legs were very weak. He said that she did walk at home with her walker. He has made her cabin accessible for her with rails on her toilet. Her home address is [address] [place] [address] in [place] [address]. her cell number is [phone]. He would like her to go to inpatient rehab here at [facility]. He said he did not think that she would go to a [facility]pc home. He would like her to go to [facility] after inpatient rehab if needed. CM will speak to patient to see what her plan is. Binu was very helpful and seem like he is a good support system for her. Route Delivery Driver: Ericka Espinosa DCPIA - Discharge Planning Initial Assessment Updated by [email or web address]: Ericka Espinosa on 09/19/19 10:37 am * Is the patient Alert and Oriented? Yes * How many steps to enter\exit or inside your home? * PCP JANNETH * Preadmission Environment Home Alone * ADLs Partial Dependent * Partial ADLs (Assistance needed) Ambulation Medication Management Toileting * Equipment Bedside Commode Grab Bars Power Chair or Electric Scooter Rolling Walker Shower Chair Walker Wheelchair * Other Equipment SERVICE DOG * List name and contact numbers for known caregivers / representatives who currently or will assist patient after discharge: BINU GOLDSMITH- [phone] * Verbal permission to speak to the caregivers and representatives has been obtained from the patient. Yes * Additional services required to return to the preadmission environment? Yes * Has this patient been hospitalized within the prior 30 days at any hospital? Yes Coverage Notice Reviewer: [id number] Zeinab Espinosa Notice Issued Date-Time: 10/08/2019 12:50 Notice Type: IM Discharge Notice Notice Delivered To: Patient Relationship to Patient: Control Panel Operator Name: Delivery Method: HAND - Hand Delivered Lisandra Days: Prior Verbal Notification: Recipient Understood Notice: Yes Recipient Signature: Yes Med Rec Note Co-signed by Attending: Coverage Notice Comment: Reviewer: [id number] Espinosa Notice Issued Date-Time: 10/08/2019 12:50 Notice Type: Patient Choice Letter Notice Delivered To: Patient Relationship to Patient: Control Panel Operator Name: Delivery Method: HAND - Hand Delivered Lisandra Days: Prior Verbal Notification: Recipient Understood Notice: Yes Recipient Signature: Yes Med Rec Note Co-signed by Attending: Coverage Notice Comment: inpatient rehab Last DP export: 10/10/19 8:04 a Patient Name: KAVON GOLDSMITH Page [id number] at 0927 All edits/amendments must be made on the electronic document DICTATION DATE: 10/10/19925 REPAIRER SWITCHGEAR: SOFI 10/10/19925 RPT#: [id number] DC DATE: STATUS: ADM IN [facility] [address] [place] [address] END OF REPORT
--- NOTE | 2019-10-10 09:45 | NUR ---
PT HAD BM, LOOSE AND LARGE AMOUNT. CLEANED PT AND APPLIED ALAN CREAM TO BUTTOCKS. PT TOLERATED WELL. WILL CTM.
--- NOTE | 2019-10-10 11:55 | MORECARE ---
CASE MANAGEMENT DISCHARGE SUMMARY PATIENT: KAVON GOLDSMITH UNIT: [id number] ADM DATE: 09/17/19 AGE: 48 : 70 SEX: F ROOM/BED: D.2205 AUTHOR: ENEDINA,DOC PHYSICIAN: REFERRING PHYSICIAN: MARLENE RIBERA MD DATE OF SERVICE: 10/10/19 Discharge Plan Patient Name: KAVON GOLDSMITH Facility: [facility]:[place] : 1970 Planned Disposition: Inpatient Rehab Anticipated Discharge Date: Discharge Date: Expected LOS: Initial Reviewer: [email or web address] Initial Review Date: 09/17/2019 Generated: 10/10/19 12:54 pm Comments DCP- Discharge Planning Updated by [id number]: Ericka Espinosa on 10/10/19 10:[address] RECEIVED CALL FROM ARIS FROM [facility] AND THEY DID NOT TAKE HER INSURANCE DCP- Discharge Planning Updated by [email or web address]: Ericka Espinosa on 10/10/19 8:[address] SPOKE TO MOTHER AND PATIENT AT LENGTH ABOUT WHAT THE PLAN AND WHAT PROGESS I HAVE MADE. CM WILL CONTINUE TO FOLLOW AND ASSSIT DCP- Discharge Planning Updated by [id number]: Ericka Espinosa on 10/10/19 8:[address] attempted to call the patient's mother to ash handler her an update on progress and was unsuccessful I did not get an answer DCP- Discharge Planning Updated by [id number]: Ericka Espinosa on 10/10/19 7:[address] spoke with Aris at [facility] about patient and they are reviewing her chart DCP- Discharge Planning Updated by [id number]: Ericka Espinosa on 10/09/19 1:[address] [facility] CALLED AND STATED THAT THEY ARE NOT IN NETWORK WITH HER INSURANCE I WILL SEND THE REFERRAL TO [facility] DCP- Discharge Planning Updated by [id number]: Ericka Espinosa on 10/09/19 11:[address] referral sent to [facility], I spoke with sana DCP- Discharge Planning Updated by [email or web address]: Ericka Espinosa on 10/08/19 2:[address] AFTER RECEIVING AUTH FROM OUR INPATIENT REHAB I RECEIVED A CALL FROM JULIANA THAT THEY WOULD NOT ACCEPT HER BECAUSE OF STAFFING AND QUESTION WITH FEEDS. MCKENNAFrederick PADILLA HAS SPOKEN TO THE PATIENT ABOUT THIS. A NEW REFERRAL WAS SENT TO [facility] JULIANA STATED THAT THEY WOULD TRANSFER THE AUTH TO [facility] IF THEY ACCEPT. CM TO FOLLOW AND ASSIST NEEDED DCP- Discharge Planning Updated by [id number]: Ericka Espinosa on 10/08/19 12:[address] patient will be discharging to inpatient rehab at [facility] imm served and signed mom at bedside cm to follow and assist as needed DCP- Discharge Planning Updated by [id number]: Ericka Espinosa on 09/19/19 10:[address] Patient Name: KAVON GOLDSMITH Admission Status: ER Accout number: [id number] Admission Date: 09-17-2019 : 1970 Admission Diagnosis: Attending: PETER Current LOS: 2 Anticipated DC Date: Planned Disposition: Inpatient Rehab Primary Insurance: [employer] Discharge Planning Comments: CM spoke with patients /ex- about discharge plan. He stated that they have built a 400x 12 ft cabin on her parents property where she can be independent with her care. She has a electric wheelchair, walker, scooter, service dog. Per her she started having seizures in 2013 after she had a stroke. He stated that her legs were very weak. He said that she did walk at home with her walker. He has made her cabin accessible for her with rails on her toilet. Her home address is [address] [place] [address]. her cell number is [phone]. He would like her to go to inpatient rehab here at [facility]. He said he did not think that she would go to a [facility]. He would like her to go to [facility] after inpatient rehab if needed. CM will speak to patient to see what her plan is. Binu was very helpful and seem like he is a good support system for her. Home Lending Officer: Ericka Espinosa DCPIA - Discharge Planning Initial Assessment Updated by [id number]: Ericka Espinosa on 09/19/19 10:37 am * Is the patient Alert and Oriented? Yes * How many steps to enter\exit or inside your home? * PCP JANNETH * Preadmission Environment Home Alone * ADLs Partial Dependent * Partial ADLs (Assistance needed) Ambulation Medication Management Toileting * Equipment Bedside Commode Grab Bars Power Chair or Electric Scooter Rolling Walker Shower Chair Walker Wheelchair * Other Equipment SERVICE DOG * List name and contact numbers for known caregivers / representatives who currently or will assist patient after discharge: BINU GOLDSMITH- [phone] * Verbal permission to speak to the caregivers and representatives has been obtained from the patient. Yes * Additional services required to return to the preadmission environment? Yes * Has this patient been hospitalized within the prior 30 days at any hospital? Yes Coverage Notice Reviewer: [id number] Zeinab Espinosa Notice Issued Date-Time: 10/08/2019 12:50 Notice Type: IM Discharge Notice Notice Delivered To: Patient Relationship to Patient: Supervisor Feed House Name: Delivery Method: HAND - Hand Delivered Lisandra Days: Prior Verbal Notification: Recipient Understood Notice: Yes Recipient Signature: Yes Med Rec Note Co-signed by Attending: Coverage Notice Comment: Reviewer: [id number] Espinosa Notice Issued Date-Time: 10/08/2019 12:50 Notice Type: Patient Choice Letter Notice Delivered To: Patient Relationship to Patient: Supervisor Feed House Name: Delivery Method: HAND - Hand Delivered Lisandra Days: Prior Verbal Notification: Recipient Understood Notice: Yes Recipient Signature: Yes Med Rec Note Co-signed by Attending: Coverage Notice Comment: inpatient rehab Last DP export: 10/10/19 8:27 a Patient Name: KAVON GOLDSMITH Page 60211 at 1155 All edits/amendments must be made on the electronic document DICTATION DATE: 10/10/19 1154 CODING TECH: SOFI 10/10/19 1154 RPT#: [id number] DC DATE: STATUS: ADM IN [facility] [address] [place] [address] END OF REPORT
--- NOTE | 2019-10-10 12:54 | NUR ---
OT NOTE: CHECKED ON PT SEVERAL TIMES IN AM, HOWEVER, FOR SEVERAL REASONS, COULD NOT PERFORM TMT UNTIL AROUND 1115. PT WAS ALERT AND VERY COOPERATIVE. REMAINS LABILE BUT EASILY REDIRECTED. BED MOB WITH MAX ASSIST AND ABLE TO MAINTAIN SIDELIEING WITH MIN ASSIST ONCE IN POSITION. TOTAL ASSIST WITH PERINEAL CARE.. PT WITH SEVERAL EPISODES OF DIARRHEA. ATTEMPTED EOB SITTING, HOWEVER, PT WITH ABD PAIN FROM DIARRHEA AND UNABLE TO PERFORM. EDUCATED PT ON LE EXS AND TRUNK STRENGTHENING EXS THAT COULD BE PERFORMED IN BED. SUMANTH CHOW, OTR/L [phone]
[2019-10-10 13:01] VITALS: BP 120/48
--- NOTE | 2019-10-10 14:04 | NUR ---
PT LAYING IN BED, EYES CLOSED, EVEN RESPIRATIONS. MOTHER OF PT ASKED FOR PAIN MEDS. EDUCATED MOTHER THAT WE DO NOT ADMINISTER PAIN MEDS WHEN PT IS ASLEEP, VERBALIZED UNDERSTANDING. WILL CONTINUE TO MONITOR.
--- NOTE | 2019-10-10 14:08 | NUR ---
NUTRITION FOLLOW UP: COMMENTS: Patient has been tolerating her diet per DIRECTOR OF PARKS AND RECREATION today. Patient has been experiencing abdominal pain and diarrhea. She has been eating well for the past 6 meals. No new weight recorded since 09/17. DIET: Regular Puree Diet with Glassmanor Thick Liquids PO INTAKE: 87% avg for last 6 meals WEIGHT: 09/17- 145 lbs BM: x 1 on 10/08 SIG LABS: Cr-0.4(L), Ca-7.9(L), Albumin-0.8(L) SIG MEDS: Protonix, Lasix, KCl, Miralax, KPhos, Mag Sulf, Mag Ox RECOMMENDATIONS: -Continue current diet per DIRECTOR OF PARKS AND RECREATION -Will offer nectar thick supplements if po intake becomes < 50% avg for meals RD to continue to monitor and follow patient DHS
--- NOTE | 2019-10-10 15:48 | NUR ---
OT NOTE: PT REQUIRED MAX X2 FOR SUPINE TO SIT. PT COMPLETED EOB SITTING WITH MOD A X2. PT COMPLETED SIT TO SUPINE WITH MAX A X2. PT COMPLETED POSITIONING IN BED WITH MAX A X2. [id number] THANK YOU,ARASH SOTO
--- NOTE | 2019-10-10 15:53 | NUR ---
PT HAD LARGE, LOOSE BM, CLEANED PT AND APPLIED ALAN LOTION TO BUTTOCKS. CHANGED DRESSING ON BILAT LOWER EXTREMITIES, VASOLINE GAUZE AND PAPER TAPE. APPLIED LOTION TO BILAT LOWER EXTREMITIES AND FEET. PT TOLERATED WELL. BED LOW, CL IN REACH. WILL CONTINUE TO MONITOR.
[2019-10-10 18:06] VITALS: BP 128/56
[2019-10-10 18:21] VITALS: BP 107/48
--- NOTE | 2019-10-10 18:47 | NUR ---
SPOKE WITH DONATO MCNAMARA, ORDERED D/C OF TUBE FEEDINGS WHILE PT IS TOLERATING FOOD WELL. BED LOW, RAILS X2. CL IN REACH.
[2019-10-10 20:00] VITALS: BP 105/51
[2019-10-11 04:00] VITALS: BP 89/41
[2019-10-11 06:17] LABS: BASOPHILS 0.3 % (0-2); EOSINOPHILS 1.7 % (0-7); HEMATOCRIT 25.7 % (36.0-48.0); HEMOGLOBIN 7.9 g/dL (12-16); IMMATURE GRANULOCYTES 1.9 % (0-5); LYMPHOCYTES 33.5 % (15-50); MCH 35.7 pg (26.0-34.0); MCHC 30.7 g/dL (31.0-37.0); MCV 116.3 fL (80.0-100.0); MEAN PLATELET VOLUME 9.3 fL (7.4-10.4); NEUTROPHILS 53.6 % (40-80); PLATELET COUNT 398 10x3/uL (130-400); RBC 2.21 10x6/uL (4.00-5.40); RDW 13.6 % (11.5-14.5)
[2019-10-11 06:39] LABS: CALC OSMOLALITY 278 mosm/kg (275-300); CALCIUM 7.7 mg/dL (8.5-10.1); CARBON DIOXIDE 27.8 mmol/L (21.0-32.0); CHLORIDE - SERUM 109 mmol/L (98-107); CREATININE - SERUM 0.4 mg/dL (0.6-1.3); GLUCOSE 78 mg/dL (74-106); MAGNESIUM - SERUM 2.2 mg/dL (1.8-2.4); PHOSPHOROUS 2.8 mg/dL (2.5-4.9); POTASSIUM - SERUM 4.5 mmol/L (3.5-5.1); SODIUM 141 mmol/L (136-145); UREA NITROGEN 11 mg/dL (7-18); eGFR NON AFRICAN AMERICAN > 90 mL/min (90-120)
--- NOTE | 2019-10-11 07:10 | NUR ---
REC'D IN BED AWAKE AND ALERT. RESP EVEN AND UNLABORED WITH NO DISTRESS NOTED. CAN EXPRESS NEEDS AND WANTS. NO C/O NOTED OR VOICED AT THIS TIME. INCONT OF BOWEL WITH HAMILTON INTACT AND DRAINGING TO GRAVITY. ASSESSMENT COMPLETED. C/L IN REACH AT BEDSIDE.
[2019-10-11 08:00] VITALS: BP 99/51
--- NOTE | 2019-10-11 11:04 | NUR ---
WAS MEDICATED WITH MORPHINE AT THIS TIME FOR C/O PAIN. AND C/L IN REACH AT BEDSIDE.
--- NOTE | 2019-10-11 11:12 | NUR ---
NOTIFIED DR. MATOS OF CONSULT ON THIS PT REC'D NEW ORDERS FOR DEPAKOTE AND KEFLYRA LAB DRAW.
[2019-10-11 12:13] LABS: % SATURATION 32 % (15-55); IRON 27 ug/dl (35-150); TOTAL IRON BIND CAPACITY 84 ug/dl (260-445); UNSAT IRON BIND CAPACITY 57 ug/dl (150-375)
[2019-10-11 13:26] VITALS: BP 108/56
--- NOTE | 2019-10-11 14:24 | NUR ---
I have reviewed this patient and I concur with the Shift Assessment completed by the Licensed Practical Nurse today this shift.
--- NOTE | 2019-10-11 15:04 | NUR ---
WAS MEDICATED WITH MORPHINE FOR C/O PAIN. MAURICE AND C/L IN REACH AT BEDSIDE.
[2019-10-11 16:17] VITALS: BP 104/47
[2019-10-11 20:00] VITALS: BP 100/62
--- NOTE | 2019-10-11 20:00 | NUR ---
ALERT AND ORIENTED WHEN ENTERING THE ROOM. PATIENT RIGHT INTERNAL JUGULAR DRESSING FLAPPED OVER AND EXPOSED AREA. CLEANED AREA USING STERILE TECHNIQUE AND DRESSING REAPPLIED. CALL TO ASSISTANT PROFESSOR TO INFORM AND ASK IF NEEDED TO PULL. ASSISTANT PROFESSOR INFORMED THIS NURSE TO NOT PULL AT THIS TIME AND NOT TO USE. INFORMED THIS NURSE TO NOTIFY MD IN AM TO RECEIVE ORDERS ON WHETHER TO PULL OR LEAVE. PERIPHERAL IV STARTED IN THE RIGHT FOREARM FOR IV MEDICATIONS. 22G, X1 ATTEMPT.
[2019-10-12] VITALS: BP 100/52
--- NOTE | 2019-10-12 06:43 | NUR ---
RECEIVED ORDERS TO PULL RIGHT IJ CVL AND ORDER CHEST X RAY.
--- NOTE | 2019-10-12 06:51 | NUR ---
REMOVED CVL FROM RIGHT IJ. TIP IN TACT. CHEST X RAY ORDERED PER DIRECTION OF LARRY LENNON APRN
--- NOTE | 2019-10-12 08:47 | NUR ---
RESTING IN BED, NO DISTRESS NOTED, FEEDING SELF, TAKING MED PO, SL IN PLACE, WILL TURN AND MONITOR INCONT
[2019-10-12 09:53] VITALS: BP 89/44
[2019-10-12 10:10] LABS: BASOPHILS 0.7 % (0-2); EOSINOPHILS 2.2 % (0-7); HEMATOCRIT 29.4 % (36.0-48.0); HEMOGLOBIN 9.2 g/dL (12-16); IMMATURE GRANULOCYTES 1.1 % (0-5); LYMPHOCYTES 27.9 % (15-50); MCH 36.1 pg (26.0-34.0); MCHC 31.3 g/dL (31.0-37.0); MCV 115.3 fL (80.0-100.0); MONOCYTES 5.2 % (2-11); NEUTROPHILS 62.9 % (40-80); PLATELET COUNT 468 10x3/uL (130-400); RBC 2.55 10x6/uL (4.00-5.40); RDW 13.6 % (11.5-14.5); WBC 9.2 10x3/uL (4.8-10.8)
[2019-10-12 10:25] LABS: CARBON DIOXIDE 27.4 mmol/L (21.0-32.0); CHLORIDE - SERUM 108 mmol/L (98-107); CREATININE - SERUM 0.4 mg/dL (0.6-1.3); MAGNESIUM - SERUM 1.9 mg/dL (1.8-2.4); POTASSIUM - SERUM 4.1 mmol/L (3.5-5.1); SODIUM 140 mmol/L (136-145); eGFR NON AFRICAN AMERICAN > 90 mL/min (90-120)
[2019-10-12 10:27] LABS: CALC OSMOLALITY 277 mosm/kg (275-300); GLUCOSE 120 mg/dL (74-106); PHOSPHOROUS 3.8 mg/dL (2.5-4.9); UREA NITROGEN 8 mg/dL (7-18)
--- NOTE | 2019-10-12 11:00 | NUR ---
PROVIDED INCONT CARE AND TURNED
[2019-10-12 12:45] VITALS: BP 93/54
--- NOTE | 2019-10-12 15:00 | NUR ---
REFUSING INCONT CARE TILL AFTER PAIN MEDS, REFUSED PT TODAY ALSO
[2019-10-12 16:37] VITALS: BP 96/57
--- NOTE | 2019-10-12 19:00 | NUR ---
PATIENT ALERT AND ORIENTED READING NEWSPAPER WHEN ENTERING THE ROOM. ASSESSMENT PERFORMED. PATIENT IS BEDFAST. REPOSITIONED PATIENT WITH HELP OF ELECTRIC MULE OPERATOR. HAMILTON CATHETER IN PLACE DRAINING YELLOW URINE. PEG TUBE IS CLEAN AND DRY. IV TO THE RIGHT FOREARM IS PATENT, FLUSHES EASILY, WITHOUT REDNESS OR SWELLING. BED IS AT LOWEST SETTING, LOCKED, AND SIDE RAILS UP X 2. CALL LIGHT CLOSE TO PATIENT WELL CELL PHONE AND IPAD. BOTH LEGS PROPPED ON PILLOWS AND PATIENT WEARING N ON SKID BLUE SOCKS. BED ALARM ON. CPOC.
--- NOTE | 2019-10-12 19:52 | NUR ---
ANSWERED PATIENT CALL LIGHT. PATIENT REQUESTING PRN PAIN MEDICINE FOR PAIN RATING OF 10/10 AND STATES "IT HURTS ALL OVER!" ADMINISTERED PER ORDER. DENIES FURTHER NEEDS. CPOC.
[2019-10-12 23:03] VITALS: BP 96/53
--- NOTE | 2019-10-13 01:49 | NUR ---
INCONTINENT OF BOWEL. CLEANED AND HAMILTON CARE PROVIDED. EXCORIATION NOTED, NILDA AND BOUDREAUXS APPLIED. PATIENT RETURNED TO RESTING, CPOC.
[2019-10-13 02:35] VITALS: BP 97/49
[2019-10-13 04:49] LABS: BASOPHILS 0.7 % (0-2); EOSINOPHILS 2.9 % (0-7); HEMATOCRIT 26.7 % (36.0-48.0); HEMOGLOBIN 8.4 g/dL (12-16); IMMATURE GRANULOCYTES 0.9 % (0-5); LYMPHOCYTES 41.3 % (15-50); MCH 35.9 pg (26.0-34.0); MCHC 31.5 g/dL (31.0-37.0); MCV 114.1 fL (80.0-100.0); MEAN PLATELET VOLUME 8.8 fL (7.4-10.4); MONOCYTES 9.7 % (2-11); NEUTROPHILS 44.5 % (40-80); PLATELET COUNT 486 10x3/uL (130-400); RBC 2.34 10x6/uL (4.00-5.40); RDW 13.8 % (11.5-14.5); WBC 8.5 10x3/uL (4.8-10.8)
[2019-10-13 04:58] LABS: CALC OSMOLALITY 275 mosm/kg (275-300); CALCIUM 7.9 mg/dL (8.5-10.1); CARBON DIOXIDE 28.3 mmol/L (21.0-32.0); CHLORIDE - SERUM 109 mmol/L (98-107); CREATININE - SERUM 0.3 mg/dL (0.6-1.3); GLUCOSE 81 mg/dL (74-106); MAGNESIUM - SERUM 1.9 mg/dL (1.8-2.4); PHOSPHOROUS 3.8 mg/dL (2.5-4.9); POTASSIUM - SERUM 4.4 mmol/L (3.5-5.1); SODIUM 140 mmol/L (136-145); UREA NITROGEN 8 mg/dL (7-18); eGFR NON AFRICAN AMERICAN > 90 mL/min (90-120)
[2019-10-13 07:13] VITALS: BP 104/58
[2019-10-13 09:31] VITALS: BP 100/53
[2019-10-13 12:34] VITALS: BP 95/47
[2019-10-13 17:59] VITALS: BP 103/63
[2019-10-13 20:00] VITALS: BP 107/63
--- NOTE | 2019-10-13 21:00 | NUR ---
PT REQUESTING PAIN MEDICATION AND DINNER TRAY. REMINDED PT SHE REHED BOTH ALREADY AND CONSUMED ALL OF DINNER TRAY. PT VERBALIZED UNDERSTANDING, DENIED SNACK. CTM.
[2019-10-14 04:00] VITALS: BP 108/61
[2019-10-14 06:57] LABS: BASOPHILS 0.7 % (0-2); EOSINOPHILS 2.6 % (0-7); HEMATOCRIT 27.1 % (36.0-48.0); HEMOGLOBIN 8.5 g/dL (12-16); IMMATURE GRANULOCYTES 0.9 % (0-5); LYMPHOCYTES 29.2 % (15-50); MCHC 31.4 g/dL (31.0-37.0); MCV 114.8 fL (80.0-100.0); MEAN PLATELET VOLUME 8.7 fL (7.4-10.4); MONOCYTES 7.6 % (2-11); PLATELET COUNT 499 10x3/uL (130-400); RBC 2.36 10x6/uL (4.00-5.40); RDW 13.4 % (11.5-14.5); WBC 8.1 10x3/uL (4.8-10.8)
[2019-10-14 07:30] LABS: ALKALINE PHOSPHATASE 96 U/L (30-120); ALT (SGPT) 12 U/L (10-68); BILIRUBIN - TOTAL 0.13 mg/dL (0.2-1.3); CALC OSMOLALITY 279 mosm/kg (275-300); CARBON DIOXIDE 26.9 mmol/L (21.0-32.0); CHLORIDE - SERUM 109 mmol/L (98-107); GLUCOSE 73 mg/dL (74-106); POTASSIUM - SERUM 3.8 mmol/L (3.5-5.1); PROTEIN - SERUM 4.7 g/dL (6.4-8.2); SODIUM 142 mmol/L (136-145); UREA NITROGEN 7 mg/dL (7-18)
[2019-10-14 07:33] LABS: CREATININE - SERUM 0.5 mg/dL (0.6-1.3); eGFR NON AFRICAN AMERICAN > 90 mL/min (90-120)
--- NOTE | 2019-10-14 08:05 | NUR ---
PT RESTING IN BED WITH TABLET. LAUGHING AND TALKING WITH STAFF. RESP EVEN AND UNLABORED. REQUEST NEED FOR PAIN MEDICATION. EDUCATED PT REGARDING NEXT TIME MEDICATION COULD BE ADMINISTERED. PT VOICES UNDERSTANDING. SALINE LOC TO RIGHT FOREARM, SITE WITHOUT REDNESS OR EDEMA. F/C PATENT TO GRAVITY. 1ST STEP AIR MATTRESS IN PLACE AND ON. DENIES FURTHER NEEDS AT THIS TIME. CL WITHIN REACH. ENCOURAGED TO CALL WITH NEEDS. CONTINUE POC
[2019-10-14 08:25] VITALS: BP 98/54
--- NOTE | 2019-10-14 08:28 | MORECARE ---
CASE MANAGEMENT DISCHARGE SUMMARY PATIENT: KAVON GOLDSMITH UNIT: [id number] ADM DATE: 09/17/19 AGE: 48 : 70 SEX: F ROOM/BED: D.2205 AUTHOR: ENEDINA,DOC PHYSICIAN: REFERRING PHYSICIAN: MARLENE RIBERA MD DATE OF SERVICE: 10/14/19 Discharge Plan Patient Name: KAVON GOLDSMITH Facility: [facility]:[place] : 1970 Planned Disposition: Inpatient Rehab Anticipated Discharge Date: Discharge Date: Expected LOS: Initial Reviewer: [email or web address] Initial Review Date: 09/17/2019 Generated: 10/14/19 9:27 am Comments DCP- Discharge Planning Updated by [id number]: Ericka Espinosa on 10/14/19 7:[address] I have contacted [facility], she does not have any facilities in [facility]. I have contacted [facility] in [place] ), to see if they take the patient's insurance DCP- Discharge Planning Updated by [id number]: Ericka Espinosa on 10/10/19 10:[address] RECEIVED CALL FROM ARIS FROM [facility] AND THEY DID NOT TAKE HER INSURANCE DCP- Discharge Planning Updated by [email or web address]: Ericka Espinosa on 10/10/19 8:[address] SPOKE TO MOTHER AND PATIENT AT LENGTH ABOUT WHAT THE PLAN AND WHAT PROGESS I HAVE MADE. CM WILL CONTINUE TO FOLLOW AND ASSSIT DCP- Discharge Planning Updated by [id number]: Ericka Espinosa on 10/10/19 8:[address] attempted to call the patient's mother to computer aide her an update on progress and was unsuccessful I did not get an answer DCP- Discharge Planning Updated by [email or web address]: Ericka Espinosa on 10/10/19 7:[address] spoke with Aris at [facility] about patient and they are reviewing her chart DCP- Discharge Planning Updated by [id number]: Ericka Espinosa on 10/09/19 1:[address] [facility] CALLED AND STATED THAT THEY ARE NOT IN NETWORK WITH HER INSURANCE I WILL SEND THE REFERRAL TO [facility] DCP- Discharge Planning Updated by [email or web address]: Ericka Espinosa on 10/09/19 11:[address] referral sent to [facility], I spoke with sana DCP- Discharge Planning Updated by [id number]: Ericka Espinosa on 10/08/19 2:[address] AFTER RECEIVING AUTH FROM OUR [facility]PATIENT [facility] I RECEIVED A CALL FROM [facility] THAT THEY WOULD NOT ACCEPT HER BECAUSE OF STAFFING AND QUESTION WITH FEEDS. MCKENNA PADILLA HAS SPOKEN TO THE PATIENT ABOUT THIS. A NEW REFERRAL WAS SENT TO [facility] STATED THAT THEY WOULD TRANSFER THE AUTH TO [facility] IF THEY ACCEPT. CM TO FOLLOW AND ASSIST NEEDED DCP- Discharge Planning Updated by [id number]: Ericka Espinosa on 10/08/19 12:[address] patient will be discharging to inpatient rehab at [facility] served and signed mom at bedside cm to follow and assist as needed DCP- Discharge Planning Updated by [id number]: Ericka Espinosa on 09/19/19 10:[address] Patient Name: KAVON GOLDSMITH Admission Status: ER Accout number: [id number] Admission Date: 09-17-2019 : 1970 Admission Diagnosis: Attending: PETER Current LOS: 2 Anticipated DC Date: Planned Disposition: Inpatient Rehab Primary Insurance: [employer] Discharge Planning Comments: CM spoke with patients /ex- about discharge plan. He stated that they have built a 400x 12 ft cabin on her parents property where she can be independent with her care. She has a electric wheelchair, walker, scooter, service dog. Per her she started having seizures in 2013 after she had a stroke. He stated that her legs were very weak. He said that she did walk at home with her walker. He has made her cabin accessible for her with rails on her toilet. Her home address is [address] [place] [address] in [place] [address]. her cell number is [phone]. He would like her to go to inpatient rehab here at [facility]. He said he did not think that she would go to a shelter home. He would like her to go to [facility] after inpatient rehab if needed. CM will speak to patient to see what her plan is. Binu was very helpful and seem like he is a good support system for her. Grinder Operator Automatic: Ericka Jesús DCPIA - Discharge Planning Initial Assessment Updated by [id number]: Ericka Espinosa on 09/19/19 10:37 am * Is the patient Alert and Oriented? Yes * How many steps to enter\exit or inside your home? * PCP JANNETH * Preadmission Environment Home Alone * ADLs Partial Dependent * Partial ADLs (Assistance needed) Ambulation Medication Management Toileting * Equipment Bedside Commode Grab Bars Power Chair or Electric Scooter Rolling Walker Shower Chair Walker Wheelchair * Other Equipment SERVICE DOG * List name and contact numbers for known caregivers / representatives who currently or will assist patient after discharge: BINU GOLDSMITH- [phone] * Verbal permission to speak to the caregivers and representatives has been obtained from the patient. Yes * Additional services required to return to the preadmission environment? Yes * Has this patient been hospitalized within the prior 30 days at any hospital? Yes Coverage Notice Reviewer: [id number] Zeinab Espinosa Notice Issued Date-Time: 10/08/2019 12:50 Notice Type: IM Discharge Notice Notice Delivered To: Patient Relationship to Patient: Taxi Truck Driver Name: Delivery Method: HAND - Hand Delivered Lisandra Days: Prior Verbal Notification: Recipient Understood Notice: Yes Recipient Signature: Yes Med Rec Note Co-signed by Attending: Coverage Notice Comment: Reviewer: [email or web address] Zeinab Espinosa Notice Issued Date-Time: 10/08/2019 12:50 Notice Type: Patient Choice Letter Notice Delivered To: Patient Relationship to Patient: Taxi Truck Driver Name: Delivery Method: HAND - Hand Delivered Lisandra Days: Prior Verbal Notification: Recipient Understood Notice: Yes Recipient Signature: Yes Med Rec Note Co-signed by Attending: Coverage Notice Comment: inpatient rehab Last DP export: 10/10/19 10:55 a Patient Name: KAVON GOLDSMITH Page 13515 at 0828 All edits/amendments must be made on the electronic document DICTATION DATE: 10/14/19826 DRY CELL ASSEMBLY MACHINE TENDER: SOFI 10/14/19826 RPT#: [id number] DC DATE: STATUS: ADM IN [facility] [address] [place] [address] END OF REPORT
--- NOTE | 2019-10-14 08:34 | MORECARE ---
CASE MANAGEMENT DISCHARGE SUMMARY PATIENT: KAVON GOLDSMITH UNIT: [id number] ADM DATE: 09/17/19 AGE: 48 : 70 SEX: F ROOM/BED: D.2205 AUTHOR: ENEDINA,DOC PHYSICIAN: REFERRING PHYSICIAN: MARLENE RIBERA MD DATE OF SERVICE: 10/14/19 Discharge Plan Patient Name: KAVON GOLDSMITH Facility: [facility]:[place] : 1970 Planned Disposition: Inpatient Rehab Anticipated Discharge Date: Discharge Date: Expected LOS: Initial Reviewer: [email or web address] Initial Review Date: 09/17/2019 Generated: 10/14/19 9:34 am Comments DCP- Discharge Planning Updated by [email or web address]: Ericka Espinosa on 10/14/19 7:[address] [facility] DOES NOT ACCPET HER INSURANCE I WILL ATTEPMT JULIABRENDA WILLI DCP- Discharge Planning Updated by [email or web address]: Ericka Espinosa on 10/14/19 7:[address] I have contacted Vanessa, she does not have any facilities in [facility]. I have contacted [facility] in [place] ), to see if they take the patient's insurance DCP- Discharge Planning Updated by [id number]: Ericka Espinosa on 10/10/19 10:[address] RECEIVED CALL FROM ARIS FROM [facility] AND THEY DID NOT TAKE HER INSURANCE DCP- Discharge Planning Updated by [id number]: Ericka Espinosa on 10/10/19 8:[address] SPOKE TO MOTHER AND PATIENT AT LENGTH ABOUT WHAT THE PLAN AND WHAT PROGESS I HAVE MADE. CM WILL CONTINUE TO FOLLOW AND ASSSIT DCP- Discharge Planning Updated by [id number]: Ericka Espinosa on 10/10/19 8:[address] attempted to call the patient's mother to return to factory clerk her an update on progress and was unsuccessful I did not get an answer DCP- Discharge Planning Updated by [email or web address]: Ericka Espinosa on 10/10/19 7:[address] spoke with Aris at [facility] about patient and they are reviewing her chart DCP- Discharge Planning Updated by [id number]: Ericka Espinosa on 10/09/19 1:[address] [facility] CALLED AND STATED THAT THEY ARE NOT IN NETWORK WITH HER INSURANCE I WILL SEND THE REFERRAL TO [facility] DCP- Discharge Planning Updated by [id number]: Ericka Espinosa on 10/09/19 11:[address] referral sent to [facility], I spoke with sana DCP- Discharge Planning Updated by [email or web address]: Ericka Espinosa on 10/08/19 2:[address] AFTER RECEIVING AUTH FROM [facility] I RECEIVED A CALL FROM [facility] THAT THEY WOULD NOT ACCEPT HER BECAUSE OF STAFFING AND QUESTION WITH FEEDS. MCKENNA VALERIE HAS SPOKEN TO THE PATIENT ABOUT THIS. A NEW REFERRAL WAS SENT TO [facility] JULIANA STATED THAT THEY WOULD TRANSFER THE AUTH TO [facility] IF THEY ACCEPT. CM TO FOLLOW AND ASSIST NEEDED DCP- Discharge Planning Updated by [email or web address]: Ericka Espinosa on 10/08/19 12:[address] patient will be discharging to inpatient rehab at [facility] served and signed mom at bedside cm to follow and assist as needed DCP- Discharge Planning Updated by [id number]: Ericka Espinosa on 09/19/19 10:[address] Patient Name: KAVON GOLDSMITH Admission Status: ER Accout number: [id number] Admission Date: 09-17-2019 : 1970 Admission Diagnosis: Attending: PETER Current LOS: 2 Anticipated DC Date: Planned Disposition: Inpatient Rehab [facility] Discharge Planning Comments: CM spoke with patients /ex- about discharge plan. He stated that they have built a 400x 12 [address] cabin on her parents property where she can be independent with her care. She has a electric wheelchair, walker, scooter, service dog. Per her she started having seizures in 2013 after she had a stroke. He stated that her legs were very weak. He said that she did walk at home with her walker. He has made her cabin accessible for her with rails on her toilet. Her home address is [address] [place] [address] in [place] [address]. her cell number is [phone]. He would like her to go to inpatient rehab here at [facility]. He said he did not think that she would go to a senior care home. He would like her to go to [facility] after inpatient rehab if needed. CM will speak to patient to see what her plan is. Binu was very helpful and seem like he is a good support system for her. Agricultural Research Technologist: Ericka Espinosa DCPIA - Discharge Planning Initial Assessment Updated by [email or web address]: Ericka Espinosa on 09/19/19 10:37 am * Is the patient Alert and Oriented? Yes * How many steps to enter\exit or inside your home? * PCP JANNETH * Preadmission Environment Home Alone * ADLs Partial Dependent * Partial ADLs (Assistance needed) Ambulation Medication Management Toileting * Equipment Bedside Commode Grab Bars Power Chair or Electric Scooter Rolling Walker Shower Chair Walker Wheelchair * Other Equipment SERVICE DOG * List name and contact numbers for known caregivers / representatives who currently or will assist patient after discharge: BINU GOLDSMITH- [phone] * Verbal permission to speak to the caregivers and representatives has been obtained from the patient. Yes * Additional services required to return to the preadmission environment? Yes * Has this patient been hospitalized within the prior 30 days at any hospital? Yes Coverage Notice Reviewer: [email or web address] Zeinab Espinosa Notice Issued Date-Time: 10/08/2019 12:50 Notice Type: IM Discharge Notice Notice Delivered To: Patient Relationship to Patient: Ciaio Lumite Injector Name: Delivery Method: HAND - Hand Delivered Lisandra Days: Prior Verbal Notification: Recipient Understood Notice: Yes Recipient Signature: Yes Med Rec Note Co-signed by Attending: Coverage Notice Comment: Reviewer: [id number] Zeinab Espinosa Notice Issued Date-Time: 10/08/2019 12:50 Notice Type: Patient Choice Letter Notice Delivered To: Patient Relationship to Patient: Ciaio Lumite Injector Name: Delivery Method: HAND - Hand Delivered Lisandra Days: Prior Verbal Notification: Recipient Understood Notice: Yes Recipient Signature: Yes Med Rec Note Co-signed by Attending: Coverage Notice Comment: inpatient rehab Last DP export: 10/14/19 7:28 am Patient Name: KAVON GOLDSMITH Page [id number] at 0834 All edits/amendments must be made on the electronic document DICTATION DATE: 10/14/19833 DIRECTOR ELECTRONICS: SOFI 10/14/19833 RPT#: [id number] DC DATE: STATUS: ADM IN [facility] [address] [place] [address] END OF REPORT
--- NOTE | 2019-10-14 10:50 | NUR ---
INCONTINENT CARE FOR BM PROVIDED AT THIS TIME. PT REMAINS EXCORIATED IN LUIS MIGUEL AREA, GROIN AND COCCY. PRESCRIBED CREAM APPLIED TO AREAS. F/C CARE PROVIDED. PT MACARIO WELL
[2019-10-14 12:22] VITALS: BP 103/53
--- NOTE | 2019-10-14 12:40 | MORECARE ---
CASE MANAGEMENT DISCHARGE SUMMARY PATIENT: KAVON GOLDSMITH UNIT: [id number] ADM DATE: 09/17/19 AGE: 48 : 70 SEX: F ROOM/BED: D.2205 AUTHOR: ENEDINA,DOC PHYSICIAN: REFERRING PHYSICIAN: MARLENE RIBERA MD DATE OF SERVICE: 10/14/19 Discharge Plan Patient Name: KAVON GOLDSMITH Facility: [facility]:[place] : 1970 Planned Disposition: Inpatient Rehab Anticipated Discharge Date: Discharge Date: Expected LOS: Initial Reviewer: [email or web address] Initial Review Date: 09/17/2019 Generated: 10/14/19 1:39 pm Comments DCP- Discharge Planning Updated by [id number]: Ericka Espinosa on 10/14/19 7:[address] [facility] DOES NOT ACCPET HER INSURANCE I WILL ATTEPMT JULIABRENDA DUKEJeanne DCP- Discharge Planning Updated by [email or web address]: Ericka Espinosa on 10/14/19 7:[address] I have contacted Vanessa, she does not have any facilities in [facility]. I have contacted [facility] in [place] ( [phone]), to see if they take the patient's insurance DCP- Discharge Planning Updated by [id number]: Ericka Espinosa on 10/10/19 10:[address] RECEIVED CALL FROM ARIS FROM [facility] AND THEY DID NOT TAKE HER INSURANCE DCP- Discharge Planning Updated by [id number]: Ericka Espinosa on 10/10/19 8:[address] SPOKE TO MOTHER AND PATIENT AT LENGTH ABOUT WHAT THE PLAN AND WHAT PROGESS I HAVE MADE. CM WILL CONTINUE TO FOLLOW AND ASSSIT DCP- Discharge Planning Updated by [id number]: Ericka Espinosa on 10/10/19 8:[address] attempted to call the patient's mother to eyelet maker her an update on progress and was unsuccessful I did not get an answer DCP- Discharge Planning Updated by [id number]: Ericka Espinosa on 10/10/19 7:[address] spoke with Aris at [facility] about patient and they are reviewing her chart DCP- Discharge Planning Updated by [id number]: Ericka Espinosa on 10/09/19 1:[address] [facility] CALLED AND STATED THAT THEY ARE NOT IN NETWORK WITH HER INSURANCE I WILL SEND THE REFERRAL TO [facility] DCP- Discharge Planning Updated by [email or web address]: Ericka Espinosa on 10/09/19 11:[address] referral sent to [facility], I spoke with sana DCP- Discharge Planning Updated by [email or web address]: Ericka Espinosa on 10/08/19 2:[address] AFTER RECEIVING AUTH FROM [facility] I RECEIVED A CALL FROM JULIANA THAT THEY WOULD NOT ACCEPT HER BECAUSE OF STAFFING AND QUESTION WITH FEEDS. MCKENNA VALERIE HAS SPOKEN TO THE PATIENT ABOUT THIS. A NEW REFERRAL WAS SENT TO [facility]UL[facility]NA STATED THAT THEY WOULD TRANSFER THE AUTH TO [facility] IF THEY ACCEPT. CM TO FOLLOW AND ASSIST NEEDED DCP- Discharge Planning Updated by [id number]: Ericka Espinosa on 10/08/19 12:[address] patient will be discharging to inpatient rehab at [facility] imm served and signed mom at bedside cm to follow and assist as needed DCP- Discharge Planning Updated by [email or web address]: Ericka Espinosa on 09/19/19 10:[address] Patient Name: KAVON GOLDSMITH Admission Status: ER Accout number: [id number] Admission Date: 09-17-2019 : 1970 Admission Diagnosis: Attending: PETER Current LOS: 2 Anticipated DC Date: Planned Disposition: Inpatient Rehab Primary Insurance: [employer] Discharge Planning Comments: CM spoke with patients /ex- about discharge plan. He stated that they have built a 400x 12 ft cabin on her parents property where she can be independent with her care. She has a electric wheelchair, walker, scooter, service dog. Per her she started having seizures in 2013 after she had a stroke. He stated that her legs were very weak. He said that she did walk at home with her walker. He has made her cabin accessible for her with rails on her toilet. Her home address is [address] [place] [address] in [place] [address]. her cell number is [phone]. He would like her to go to inpatient rehab here at [facility]. He said he did not think that she would go to a long-term home. He would like her to go to [facility] after inpatient rehab if needed. CM will speak to patient to see what her plan is. Binu was very helpful and seem like he is a good support system for her. Body Team Member: Ericka Espinosa DCPIA - Discharge Planning Initial Assessment Updated by [id number]: Ericka Espinosa on 09/19/19 10:37 am * Is the patient Alert and Oriented? Yes * How many steps to enter\exit or inside your home? * PCP JANNETH * Preadmission Environment Home Alone * ADLs Partial Dependent * Partial ADLs (Assistance needed) Ambulation Medication Management Toileting * Equipment Bedside Commode Grab Bars Power Chair or Electric Scooter Rolling Walker Shower Chair Walker Wheelchair * Other Equipment SERVICE DOG * List name and contact numbers for known caregivers / representatives who currently or will assist patient after discharge: BINU GOLDSMITH- [phone] * Verbal permission to speak to the caregivers and representatives has been obtained from the patient. Yes * Additional services required to return to the preadmission environment? Yes * Has this patient been hospitalized within the prior 30 days at any hospital? Yes External Providers External Provider: [facility] Next Contact Date: Service Request Date: Service Type: Resolution: Reviewer: Comments: Coverage Notice Reviewer: [id number] Zeinab Espinosa Notice Issued Date-Time: 10/08/2019 12:50 Notice Type: IM Discharge Notice Notice Delivered To: Patient Relationship to Patient: Revenue Cycle Consultant Name: Delivery Method: HAND - Hand Delivered Lisandra Days: Prior Verbal Notification: Recipient Understood Notice: Yes Recipient Signature: Yes Med Rec Note Co-signed by Attending: Coverage Notice Comment: Reviewer: [id number] Zeinab Espinosa Notice Issued Date-Time: 10/08/2019 12:50 Notice Type: Patient Choice Letter Notice Delivered To: Patient Relationship to Patient: Revenue Cycle Consultant Name: Delivery Method: HAND - Hand Delivered Lisandra Days: Prior Verbal Notification: Recipient Understood Notice: Yes Recipient Signature: Yes Med Rec Note Co-signed by Attending: Coverage Notice Comment: inpatient rehab Last DP export: 10/14/19 7:34 am Patient Name: KAVON GOLDSMITH Page [id number] at 1240 All edits/amendments must be made on the electronic document DICTATION DATE: 10/14/19 1239 POTATO INSPECTOR: SOFI 10/14/19 1239 RPT#: [id number] DC DATE: STATUS: ADM IN [facility] [address] [place] [address] END OF REPORT
--- NOTE | 2019-10-14 12:47 | MORECARE ---
CASE MANAGEMENT DISCHARGE SUMMARY PATIENT: KAVON GOLDSMITH UNIT: [id number] ADM DATE: 09/17/19 AGE: 48 : 70 SEX: F ROOM/BED: D.2205 AUTHOR: ENEDINA,DOC PHYSICIAN: REFERRING PHYSICIAN: MARLENE RIBERA MD DATE OF SERVICE: 10/14/19 Discharge Plan Patient Name: KAVON GOLDSMITH Facility: [facility]:[place] : 1970 Planned Disposition: Inpatient Rehab Anticipated Discharge Date: Discharge Date: Expected LOS: Initial Reviewer: [email or web address] Initial Review Date: 09/17/2019 Generated: 10/14/19 1:47 pm Comments DCP- Discharge Planning Updated by [email or web address]: Ericka Espinosa on 10/14/19 11:[address] I SPOKE WITH SHAWNA WITH [facility], THEY DO ACCEPT HER INSURANCE, I HAVE SENT THE REFERRAL SHAWNA # [phone] FAX # [phone] DCP- Discharge Planning Updated by [id number]: Ericka Espinosa on 10/14/19 7:[address] [facility] DOES NOT ACCPET HER INSURANCE I WILL ATTEPMT [facility] DCP- Discharge Planning Updated by [email or web address]: Ericka Espinosa on 10/14/19 7:[address] I have contacted Vanessa, she does not have any facilities in [facility]. I have contacted [facility] in [place] ), to see if they take the patient's insurance DCP- Discharge Planning Updated by [id number]: Ericka Espinosa on 10/10/19 10:[address] [facility]CE[facility] CALL [facility] AND THEY DID NOT TAKE HER INSURANCE DCP- Discharge Planning Updated by [email or web address]: Ericka Espinosa on 10/10/19 8:[address] SPOKE TO MOTHER AND PATIENT AT LENGTH ABOUT WHAT THE PLAN AND WHAT PROGESS I HAVE MADE. CM WILL CONTINUE TO FOLLOW AND ASSSIT DCP- Discharge Planning Updated by [email or web address]: Ericka Espinosa on 10/10/19 8:[address] attempted to call the patient's mother to compliance quality performance analyst her an update on progress and was unsuccessful I did not get an answer DCP- Discharge Planning Updated by [id number]: Ericka Espinosa on 10/10/19 7:[address] spoke with Aris at [facility] about patient and they are reviewing her chart DCP- Discharge Planning Updated by [id number]: Ericka Espinosa on 10/09/19 1:[address] [facility] CEBALL[facility] CALLED AND STATED THAT THEY ARE NOT IN NETWORK WITH HER INSURANCE I WILL SEND THE REFERRAL TO [facility] DCP- Discharge Planning Updated by [email or web address]: Ericka Espinosa on 10/09/19 11:[address] referral sent to [facility], I spoke with sana DCP- Discharge Planning Updated by [id number]: Ericka Espinosa on 10/08/19 2:[address] AFTER RECEIVING AUTH FROM [facility] I RECEIVED A CALL FROM [facility] THAT THEY WOULD NOT ACCEPT HER BECAUSE OF STAFFING AND QUESTION WITH FEEDS. MCKENNA VALERIE HAS SPOKEN TO THE PATIENT ABOUT THIS. A NEW REFERRAL WAS SENT TO [facility] JULIANA STATED THAT THEY WOULD TRANSFER THE AUTH TO [facility] IF THEY ACCEPT. CM TO FOLLOW AND ASSIST NEEDED DCP- Discharge Planning Updated by [id number]: Ericka Espinosa on 10/08/19 12:[address] patient will be discharging to inpatient rehab at [facility] imm served and signed mom at bedside cm to follow and assist as needed DCP- Discharge Planning Updated by [id number]: Ericka Espinosa on 09/19/19 10:[address] Patient Name: KAVON GOLDSMITH Admission Status: ER Accout number: [id number] Admission Date: 09-17-2019 : 1970 Admission Diagnosis: Attending: PETER Current LOS: 2 Anticipated DC Date: Planned Disposition: Inpatient Rehab Primary Insurance: [employer] Discharge Planning Comments: CM spoke with patients /ex- about discharge plan. He stated that they have built a 400x 12 ft cabin on her parents property where she can be independent with her care. She has a electric wheelchair, walker, scooter, service dog. Per her she started having seizures in 2013 after she had a stroke. He stated that her legs were very weak. He said that she did walk at home with her walker. He has made her cabin accessible for her with rails on her toilet. Her home address is [address] [place] [address] in [place] [address]. her cell number is [phone]. He would like her to go to inpatient rehab here at [facility]. He said he did not think that she would go to a [facility]. He would like her to go to [facility] after inpatient rehab if needed. CM will speak to patient to see what her plan is. Binu was very helpful and seem like he is a good support system for her. Rubber Tire Curer: Ericka Espinosa DCPIA - Discharge Planning Initial Assessment Updated by [id number]: Ericka Espinosa on 09/19/19 10:37 am * Is the patient Alert and Oriented? Yes * How many steps to enter\exit or inside your home? * PCP JANNETH * Preadmission Environment Home Alone * ADLs Partial Dependent * Partial ADLs (Assistance needed) Ambulation Medication Management Toileting * Equipment Bedside Commode Grab Bars Power Chair or Electric Scooter Rolling Walker Shower Chair Walker Wheelchair * Other Equipment SERVICE DOG * List name and contact numbers for known caregivers / representatives who currently or will assist patient after discharge: BINU GOLDSMITH- [phone] * Verbal permission to speak to the caregivers and representatives has been obtained from the patient. Yes * Additional services required to return to the preadmission environment? Yes * Has this patient been hospitalized within the prior 30 days at any hospital? Yes Coverage Notice Reviewer: [id number] Zeinab Espinosa Notice Issued Date-Time: 10/08/2019 12:50 Notice Type: IM Discharge Notice Notice Delivered To: Patient Relationship to Patient: Kai Whakaruruhau Name: Delivery Method: HAND - Hand Delivered Lisandra Days: Prior Verbal Notification: Recipient Understood Notice: Yes Recipient Signature: Yes Med Rec Note Co-signed by Attending: Coverage Notice Comment: Reviewer: [id number] Zeinab Espinosa Notice Issued Date-Time: 10/08/2019 12:50 Notice Type: Patient Choice Letter Notice Delivered To: Patient Relationship to Patient: Kai Whakaruruhau Name: Delivery Method: HAND - Hand Delivered Lisandra Days: Prior Verbal Notification: Recipient Understood Notice: Yes Recipient Signature: Yes Med Rec Note Co-signed by Attending: Coverage Notice Comment: inpatient rehab Last DP export: 10/14/19 11:40 am Patient Name: KAVON GOLDSMITH Page [phone] at 1247 All edits/amendments must be made on the electronic document DICTATION DATE: 10/14/191246 HEADER UP: SOFI 10/14/19 1247 RPT#: [id number] DC DATE: STATUS: ADM IN [facility] [address] [place] [address] END OF REPORT
--- NOTE | 2019-10-14 14:13 | NUR ---
OT NOTE: CHECKED ON PT EARLIER IN AM AND SHE WAS WAITING TO BE CLEANED UP. CAME BACK LATER AND PT REPORTED ABDOMINAL PAIN, BUT WANTED TO DO THERAPY ANYWAY. PRACTICED BED MOB INCLUDING ROLLING FROM SIDE TO SIDE. PT ABLE TO MAINTAIN SIDELIENG POSITION ON EACH SIDE WITH MIN ASSIST WHILE HOLDING ON TO HANDRAILS. PERFORMED UE AND LE EXS VERY WELL TODAY. PERFORMED UE AROM EXS WITH USE OF ENSURE BOTTLES FOR SHOULDER AND ELBOW STRENGTHENING EXS.. PT ALSO ABLE TO DEMONSTRATE IMPROVED LE STRENGTH (HIP ABD AND ADD) . WHILE ASSISTING PT WITH KNEE FLEX, SHE WAS ABLE TO TOLERATE MIN/MOD RESISTANCE TO BOTH INT AND EXT ROTATION. ALSO PERFORMED KNEE FLEX/EXT EXS WTIH ASSIST. PT MENTALLY VERY CLEAR TODAY.. MUCH BETTER THAN PREVIOUS DAYS. SUMANTH CHOW, OTR/L [phone]
--- NOTE | 2019-10-14 17:05 | NUR ---
OT NOTE: PT COMPLETED BED MOB TASKS WITH MIN/MOD A. PT COMPLETED LE STRENGTHENING TASKS . PT COMPLETED BUE AROM TOLERATED. [phone] THANK YOU, ARASH SOTO
[2019-10-14 20:00] VITALS: BP 101/54
--- NOTE | 2019-10-14 20:45 | NUR ---
PT ATTEMPTED TO REFUSED BED BATH AFTER INCONTINENT LOOSE BM. STATES SHE'S WAITING UNTIL AFTER 10 SO SHE CAN HAVE HER PRN PAIN MED. INFORMED PT IT WOULD WORSEN SKIN BREAKDOWN. PT RELUCTANTLY AGREEN TO BED BATH. PEG TUBE SECURED WITH TAPE PER REQUEST, NO FURTHER NEEDS VOICED, CTM.
--- NOTE | 2019-10-14 23:37 | NUR ---
I have reviewed this patient and I concur with the Shift Assessment completed by the Licensed Practical Nurse today this shift.
[2019-10-15] VITALS (7 sets, daily range): BP systolic 97–121; BP diastolic 45–62
[2019-10-15 05:28] LABS: EOSINOPHILS 2.3 % (0-7); HEMATOCRIT 28.7 % (36.0-48.0); IMMATURE GRANULOCYTES 0.5 % (0-5); LYMPHOCYTES 41.7 % (15-50); MCH 35.7 pg (26.0-34.0); MCHC 31.4 g/dL (31.0-37.0); MCV 113.9 fL (80.0-100.0); MEAN PLATELET VOLUME 8.9 fL (7.4-10.4); MONOCYTES 7.5 % (2-11); PLATELET COUNT 482 10x3/uL (130-400); RBC 2.52 10x6/uL (4.00-5.40); RDW 13.3 % (11.5-14.5)
[2019-10-15 05:38] LABS: ALBUMIN 1.1 g/dL (3.4-5.0); ALKALINE PHOSPHATASE 97 U/L (30-120); ALT (SGPT) 11 U/L (10-68); BILIRUBIN - TOTAL 0.08 mg/dL (0.2-1.3); CALCIUM 7.6 mg/dL (8.5-10.1); CARBON DIOXIDE 24.8 mmol/L (21.0-32.0); CHLORIDE - SERUM 110 mmol/L (98-107); CREATININE - SERUM 0.5 mg/dL (0.6-1.3); POTASSIUM - SERUM 3.6 mmol/L (3.5-5.1); PROTEIN - SERUM 4.8 g/dL (6.4-8.2); SODIUM 142 mmol/L (136-145); eGFR NON AFRICAN AMERICAN > 90 mL/min (90-120)
[2019-10-15 05:40] LABS: CALC OSMOLALITY 282 mosm/kg (275-300); GLUCOSE 110 mg/dL (74-106); UREA NITROGEN 9 mg/dL (7-18)
--- NOTE | 2019-10-15 06:51 | MORECARE ---
CASE MANAGEMENT DISCHARGE SUMMARY PATIENT: KAVON GOLDSMITH UNIT: [id number] ADM DATE: 09/17/19 AGE: 48 : 70 SEX: F ROOM/BED: D.2205 AUTHOR: ENEDINA,DOC PHYSICIAN: REFERRING PHYSICIAN: MARLENE RIBERA MD DATE OF SERVICE: 10/15/19 Discharge Plan Patient Name: KAVON GOLDSMITH Facility: [facility]:[place] : 1970 Planned Disposition: Inpatient Rehab Anticipated Discharge Date: Discharge Date: Expected LOS: Initial Reviewer: [id number] Initial Review Date: 09/17/2019 Generated: 10/15/19 7:51 am Comments DCP- Discharge Planning Updated by [id number]: Ericka Espinosa on 10/15/19 5:[address] UPDATED CLINICALS SENT TO [facility] WILL CALL SHAWNA TO SEE IF HE HAD A CHANCE TO LOOK OVER PAPERWORK THIS AM. PER SPEECH AND PATIENT NURSE, SHE HAD A GREAT DAY YESTERDAY DCP- Discharge Planning Updated by [email or web address]: Ericka Espinosa on 10/14/19 11:[address] I SPOKE WITH SHAWNA WITH [facility], THEY DO ACCEPT HER INSURANCE, I HAVE SENT THE REFERRAL SHAWNA # [phone] FAX # [phone] DCP- Discharge Planning Updated by [id number]: Ericka Espinosa on 10/14/19 7:[address] [facility] DOES NOT ACCPET HER INSURANCE I WILL ATTEPMT [facility] DCP- Discharge Planning Updated by [email or web address]: Ericka Espinosa on 10/14/19 7:[address] I have contacted Vanessa, she does not have any facilities in [facility]. I have contacted [facility] in [place] ), to see if they take the patient's insurance DCP- Discharge Planning Updated by [email or web address]: Ericka Espinosa on 10/10/19 10:[address] RECEIVED CALL FROM ARIS FROM [facility] AND THEY DID NOT TAKE HER INSURANCE DCP- Discharge Planning Updated by [id number]: Ericka Espinosa on 10/10/19 8:[address] SPOKE TO MOTHER AND PATIENT AT LENGTH ABOUT WHAT THE PLAN AND WHAT PROGESS I HAVE MADE. CM WILL CONTINUE TO FOLLOW AND ASSSIT DCP- Discharge Planning Updated by [id number]: Ericka Espinosa on 10/10/19 8:[address] attempted to call the patient's mother to peoplesoft hcm developer her an update on progress and was unsuccessful I did not get an answer DCP- Discharge Planning Updated by [id number]: Ericka Espinosa on 10/10/19 7:[address] spoke with Aris at [facility] about patient and they are reviewing her chart DCP- Discharge Planning Updated by [email or web address]: Ericka Espinosa on 10/09/19 1:[address] [facility] TUCKER CALLED AND STATED THAT THEY ARE NOT IN NETWORK WITH HER INSURANCE I WILL SEND THE REFERRAL TO [facility] DCP- Discharge Planning Updated by [id number]: Ericka Espinosa on 10/09/19 11:[address] referral sent to [facility], I spoke with sana DCP- Discharge Planning Updated by [id number]: Ericka Espinosa on 10/08/19 2:[address] AFTER RECEIVING AUTH FROM [facility] I RECEIVED A CALL FROM [facility] THAT THEY WOULD NOT ACCEPT HER BECAUSE OF STAFFING AND QUESTION WITH FEEDS. MCKENNA PADILLA HAS SPOKEN TO THE PATIENT ABOUT THIS. A NEW REFERRAL WAS SENT TO [facility] JULIANA STATED THAT THEY WOULD TRANSFER THE AUTH TO [facility] IF THEY ACCEPT. CM TO FOLLOW AND ASSIST NEEDED DCP- Discharge Planning Updated by [id number]: Ericka Espinosa on 10/08/19 12:[address] patient will be discharging to inpatient rehab at [facility] imm served and signed mom at bedside cm to follow and assist as needed DCP- Discharge Planning Updated by [email or web address]: Ericka Espinosa on 09/19/19 10:[address] Patient Name: KAVON GOLDSMITH Admission Status: ER Accout number: [id number] Admission Date: 09-17-2019 : 1970 Admission Diagnosis: Attending: PETER Current LOS: 2 Anticipated DC Date: Planned Disposition: Inpatient Rehab Primary Insurance: [employer] Discharge Planning Comments: CM spoke with patients /ex- about discharge plan. He stated that they have built a 400x 12 [address] cabin on her parents property where she can be independent with her care. She has a electric wheelchair, walker, scooter, service dog. Per her she started having seizures in 2013 after she had a stroke. He stated that her legs were very weak. He said that she did walk at home with her walker. He has made her cabin accessible for her with rails on her toilet. Her home address is [address] [place] [address]. her cell number is [phone]. He would like her to go to inpatient rehab here at [facility]. He said he did not think that she would go to a intermediate home. He would like her to go to [facility] after inpatient rehab if needed. CM will speak to patient to see what her plan is. Binu was very helpful and seem like he is a good support system for her. Skiing Instructor: Ericka Espinosa DCPIA - Discharge Planning Initial Assessment Updated by [id number]: Ericka Espinosa on 09/19/19 10:37 am * Is the patient Alert and Oriented? Yes * How many steps to enter\exit or inside your home? * PCP JANNETH * Preadmission Environment Home Alone * ADLs Partial Dependent * Partial ADLs (Assistance needed) Ambulation Medication Management Toileting * Equipment Bedside Commode Grab Bars Power Chair or Electric Scooter Rolling Walker Shower Chair Walker Wheelchair * Other Equipment SERVICE DOG * List name and contact numbers for known caregivers / representatives who currently or will assist patient after discharge: BINU GOLDSMITH- [phone] * Verbal permission to speak to the caregivers and representatives has been obtained from the patient. Yes * Additional services required to return to the preadmission environment? Yes * Has this patient been hospitalized within the prior 30 days at any hospital? Yes Coverage Notice Reviewer: [id number] Zeinab Espinosa Notice Issued Date-Time: 10/08/2019 12:50 Notice Type: IM Discharge Notice Notice Delivered To: Patient Relationship to Patient: Metal Fence Erector Name: Delivery Method: HAND - Hand Delivered Lisandra Days: Prior Verbal Notification: Recipient Understood Notice: Yes Recipient Signature: Yes Med Rec Note Co-signed by Attending: Coverage Notice Comment: Reviewer: [id number] Zeinab Espinosa Notice Issued Date-Time: 10/08/2019 12:50 Notice Type: Patient Choice Letter Notice Delivered To: Patient Relationship to Patient: Metal Fence Erector Name: Delivery Method: HAND - Hand Delivered Lisandra Days: Prior Verbal Notification: Recipient Understood Notice: Yes Recipient Signature: Yes Med Rec Note Co-signed by Attending: Coverage Notice Comment: inpatient rehab Last DP export: 10/14/19 11:47 am Patient Name: KAVON GOLDSMITH Page [phone] at 0651 All edits/amendments must be made on the electronic document DICTATION DATE: 10/15/19650 RN CHRONIC: SOIF 10/15/19650 RPT#: [id number] DC DATE: STATUS: ADM IN [facility] [address] [place] [address] END OF REPORT
--- NOTE | 2019-10-15 07:57 | NUR ---
RESTING IN BED, NO DISTRESS NOTED, HAMILTON TO GRAVITY, RFA WITH SL, CONT TO MONITOR INCONT AND PO INTAKE
--- NOTE | 2019-10-15 13:28 | NUR ---
OT NOTE: PT COMPLETED SUPINE TO SIT WITH MAX A. PT REQUIRED MOD A FOR EOB SITTING BALANCE. PT COMPLETED UE AROM TOLERATED. PT REQUIRED TOTAL A WITH LB HYGIENE. [phone] THANK YOU,ARASH SOTO
--- NOTE | 2019-10-15 13:59 | NUR ---
Nutrition follow-up: Pt receiving a regular puree diet with thin liquids PO intake has been 100% of all meals with extra snacks in-between Pt with PEG tube in place; however, po intake meeting needs at this time so nutrition support is not required. Labs reviewed Wt: 145# Recommend if PO intake falls below 50% of meals for more than 1 day to use PEG tube to bolus tube feeding formula. RDN following.
--- NOTE | 2019-10-15 19:00 | NUR ---
SHIFT ASSESSMENT COMPLETED. PT CARE ASSUMED. PT AWAKE AND ALERT, CALL LIGHT WITHIN REACH, WILL CONTINUE TO OBSERVE.
[2019-10-16] VITALS: BP 128/80
[2019-10-16 04:26] VITALS: BP 98/60
[2019-10-16 08:24] LABS: BASOPHILS 0.9 % (0-2); EOSINOPHILS 1.9 % (0-7); HEMATOCRIT 27.4 % (36.0-48.0); HEMOGLOBIN 8.5 g/dL (12-16); IMMATURE GRANULOCYTES 0.6 % (0-5); LYMPHOCYTES 35.1 % (15-50); MCH 35.6 pg (26.0-34.0); MCV 114.6 fL (80.0-100.0); MEAN PLATELET VOLUME 8.7 fL (7.4-10.4); MONOCYTES 7.2 % (2-11); NEUTROPHILS 54.3 % (40-80); PLATELET COUNT 478 10x3/uL (130-400); RBC 2.39 10x6/uL (4.00-5.40); RDW 13.2 % (11.5-14.5)
[2019-10-16 08:46] LABS: ALBUMIN 1.1 g/dL (3.4-5.0); ALKALINE PHOSPHATASE 90 U/L (30-120); ALT (SGPT) 10 U/L (10-68); CALC OSMOLALITY 283 mosm/kg (275-300); CALCIUM 7.9 mg/dL (8.5-10.1); CARBON DIOXIDE 27.6 mmol/L (21.0-32.0); CHLORIDE - SERUM 110 mmol/L (98-107); GLUCOSE 82 mg/dL (74-106); PROTEIN - SERUM 4.3 g/dL (6.4-8.2); SODIUM 144 mmol/L (136-145); UREA NITROGEN 8 mg/dL (7-18)
[2019-10-16 09:00] VITALS: BP 99/56
[2019-10-16 09:04] LABS: BILIRUBIN - TOTAL 0.08 mg/dL (0.2-1.3); CREATININE - SERUM 0.3 mg/dL (0.6-1.3); POTASSIUM - SERUM 4.2 mmol/L (3.5-5.1); eGFR NON AFRICAN AMERICAN > 90 mL/min (90-120)
--- NOTE | 2019-10-16 09:34 | MORECARE ---
CASE MANAGEMENT DISCHARGE SUMMARY PATIENT: KAVON GOLDSMITH UNIT: [id number] ADM DATE: 09/17/19 AGE: 48 : 70 SEX: F ROOM/BED: D.2205 AUTHOR: ENEDINA,DOC PHYSICIAN: REFERRING PHYSICIAN: MARLENE RIBERA MD DATE OF SERVICE: 10/16/19 Discharge Plan Patient Name: KAVON GOLDSMITH Facility: [facility]:[place] : 1970 Planned Disposition: Inpatient Rehab Anticipated Discharge Date: Discharge Date: Expected LOS: Initial Reviewer: [id number] Initial Review Date: 09/17/2019 Generated: 10/16/19 10:33 am Comments DCP- Discharge Planning Updated by [id number]: Ericka Espinosa on 10/16/19 8:[address] RECEIVED A CALL YESTERDAY FROM SHAWNA AT [facility], HE SAID THAT THE ADMIN DID NOT THINK THAT SHE WOULD DO WELL IN ISOLATION THIS MORNING SHAWNA CALLED AND SAID THAT THEY REVIEWED THE NEW CLINICAL YESTERDAY THAT I SENT AND THEY WILL ACCEPT HER AND THEY HAD SUBMITTED FOR AUTH WITH, SHANELLE AND COVID HAS BEEN SENT OFF. THE PATIENT IS EXCITED I ATTEMPTED TO CALL HER MOTHER AND BINU, I DID NOT GET ANSWER. SIMONA SIGNED AND IMM ALSO SERVED AND EXPLAINED. CM WILL WAIT FOR THE SHANELLE AND COVID AND THE AUTH FROM INSURANCE. DCP- Discharge Planning Updated by [email or web address]: Ericka Espinosa on 10/15/19 5:[address] UPDATED CLINICALS SENT TO [facility] WILL CALL SHAWNA TO SEE IF HE HAD A CHANCE TO LOOK OVER PAPERWORK THIS AM. PER SPEECH AND PATIENT NURSE, SHE HAD A GREAT DAY YESTERDAY DCP- Discharge Planning Updated by [id number]: Ericka Espinosa on 10/14/19 11:[address] I SPOKE WITH SHAWNA WITH [facility], THEY DO ACCEPT HER INSURANCE, I HAVE SENT THE REFERRAL SHAWNA # [phone] FAX # [phone] DCP- Discharge Planning Updated by [id number]: Ericka Espinosa on 10/14/19 7:[address] [facility] DOES NOT ACCPET HER INSURANCE I WILL ATTEPMT [facility] DCP- Discharge Planning Updated by [email or web address]: Ericka Espinosa on 10/14/19 7:[address] I have contacted Vanessa, she does not have any facilities in [facility]. I have contacted [facility] in [place] ( [phone]), to see if they take the patient's insurance DCP- Discharge Planning Updated by [id number]: Ericka Espinosa on 10/10/19 10:[address] RECEIVED CALL FROM ARIS FROM [facility] AND THEY DID NOT TAKE HER INSURANCE DCP- Discharge Planning Updated by [id number]: Ericka Espinosa on 10/10/19 8:[address] SPOKE TO MOTHER AND PATIENT AT LENGTH ABOUT WHAT THE PLAN AND WHAT PROGESS I HAVE MADE. CM WILL CONTINUE TO FOLLOW AND ASSSIT DCP- Discharge Planning Updated by [id number]: Ericka Espinosa on 10/10/19 8:[address] attempted to call the patient's mother to map drafter her an update on progress and was unsuccessful I did not get an answer DCP- Discharge Planning Updated by [id number]: Ericka Espinosa on 10/10/19 7:[address] spoke with Aris at [facility] about patient and they are reviewing her chart DCP- Discharge Planning Updated by [id number]: Ericka Espinosa on 10/09/19 1:[address] [facility] CALLED AND STATED THAT THEY ARE NOT IN NETWORK WITH HER INSURANCE I WILL SEND THE REFERRAL TO [facility] DCP- Discharge Planning Updated by [email or web address]: Ericka Espinosa on 10/09/19 11:[address] referral sent to [facility], I spoke with sana DCP- Discharge Planning Updated by [email or web address]: Ericka Espinosa on 10/08/19 2:[address] AFTER RECEIVING AUTH FROM [facility] I RECEIVED A CALL FROM [facility] THAT THEY WOULD NOT ACCEPT HER BECAUSE OF STAFFING AND QUESTION WITH FEEDS. MCKENNA PADILLA HAS SPOKEN TO THE PATIENT ABOUT THIS. A NEW REFERRAL WAS SENT TO [facility]UL[facility] STATED THAT THEY WOULD TRANSFER THE AUTH TO [facility] IF THEY ACCEPT. CM TO FOLLOW AND ASSIST NEEDED DCP- Discharge Planning Updated by [id number]: Ericka Espinosa on 10/08/19 12:[address] patient will be discharging to inpatient rehab at [facility] imm served and signed mom at bedside cm to follow and assist as needed DCP- Discharge Planning Updated by [id number]: Ericka Espinosa on 09/19/19 10:[address] Patient Name: KAVON GOLDSMITH Admission Status: ER Accout number: [id number] Admission Date: 09-17-2019 : 1970 Admission Diagnosis: Attending: PETER Current LOS: 2 Anticipated DC Date: Planned Disposition: Inpatient Rehab Primary Insurance: [employer] Discharge Planning Comments: CM spoke with patients /ex- about discharge plan. He stated that they have built a 400x 12 ft cabin on her parents property where she can be independent with her care. She has a electric wheelchair, walker, scooter, service dog. Per her she started having seizures in 2013 after she had a stroke. He stated that her legs were very weak. He said that she did walk at home with her walker. He has made her cabin accessible for her with rails on her toilet. Her home address is [address] [place] [address]. her cell number is [phone]. He would like her to go to inpatient rehab here at [facility]. He said he did not think that she would go to a [facility] home. He would like her to go to [facility] after inpatient rehab if needed. CM will speak to patient to see what her plan is. Binu was very helpful and seem like he is a good support system for her. Optical Laboratory Mechanic: Ericka Espinosa DCPIA - Discharge Planning Initial Assessment Updated by [id number]: Ericka Espinosa on 09/19/19 10:37 am * Is the patient Alert and Oriented? Yes * How many steps to enter\exit or inside your home? * PCP JANNETH * Preadmission Environment Home Alone * ADLs Partial Dependent * Partial ADLs (Assistance needed) Ambulation Medication Management Toileting * Equipment Bedside Commode Grab Bars Power Chair or Electric Scooter Rolling Walker Shower Chair Walker Wheelchair * Other Equipment SERVICE DOG * List name and contact numbers for known caregivers / representatives who currently or will assist patient after discharge: BINU GOLDSMITH- [phone] * Verbal permission to speak to the caregivers and representatives has been obtained from the patient. Yes * Additional services required to return to the preadmission environment? Yes * Has this patient been hospitalized within the prior 30 days at any hospital? Yes External Providers External Provider: KAMALA Miguel Next Contact Date: Service Request Date: Service Type: Resolution: Reviewer: Comments: Coverage Notice Reviewer: [id number] Zeinab Espinosa Notice Issued Date-Time: 10/08/2019 12:50 Notice Type: IM Discharge Notice Notice Delivered To: Patient Relationship to Patient: Boring Machine Set Up Operator Name: Delivery Method: HAND - Hand Delivered Lisandra Days: Prior Verbal Notification: Recipient Understood Notice: Yes Recipient Signature: Yes Med Rec Note Co-signed by Attending: Coverage Notice Comment: Reviewer: [id number] Zeinab Espinosa Notice Issued Date-Time: 10/08/2019 12:50 Notice Type: Patient Choice Letter Notice Delivered To: Patient Relationship to Patient: Boring Machine Set Up Operator Name: Delivery Method: HAND - Hand Delivered Lisandra Days: Prior Verbal Notification: Recipient Understood Notice: Yes Recipient Signature: Yes Med Rec Note Co-signed by Attending: Coverage Notice Comment: inpatient rehab Last DP export: 10/15/19 5:51 am Patient Name: KAVON GOLDSMITH Page [id number] at 0934 All edits/amendments must be made on the electronic document DICTATION DATE: 10/16/19932 REPAIRER AUTO CLOCKS: SOFI 10/16/19932 RPT#: [id number] DC DATE: STATUS: ADM IN [facility] [address] [place] [address] END OF REPORT
[2019-10-16 13:13] VITALS: BP 112/67
--- NOTE | 2019-10-16 16:05 | NUR ---
OT NOTE: ASSISTED PT WITH ROLLING FROM SIDE TO SIDE WHILE NURSING PERFORMED PERINEAL CARE. PT WITH LARGE LIQUID BM...PERFORMED UE/LE EXS WITH MIN ASSIST. PT REPORTING THAT SHE IS LEAVING TODAY TO GO TO A REHAB. SUMANTH CHOW, OTR/L [phone]
[2019-10-16 17:17] VITALS: BP 108/61
[2019-10-16 20:00] VITALS: BP 122/58
--- NOTE | 2019-10-16 20:00 | NUR ---
ALERT REATINGN IN BED, C/O PAIN TO RIGHT SIDE WITH TURNING, INCONTIENT ON BOWEL, HAMILTON CATH TO GRAVITY DRAINAGE, SEE SHIFT ASSESSMENT, CALL LIGHT IN REACH
[2019-10-17] VITALS: BP 154/55
[2019-10-17 04:00] VITALS: BP 112/68
[2019-10-17 05:00] LABS: ALBUMIN 1.2 g/dL (3.4-5.0); ALKALINE PHOSPHATASE 95 U/L (30-120); ALT (SGPT) 9 U/L (10-68); BILIRUBIN - TOTAL 0.15 mg/dL (0.2-1.3); CALC OSMOLALITY 282 mosm/kg (275-300); CALCIUM 7.8 mg/dL (8.5-10.1); CARBON DIOXIDE 25.8 mmol/L (21.0-32.0); CHLORIDE - SERUM 111 mmol/L (98-107); GLUCOSE 81 mg/dL (74-106); PROTEIN - SERUM 4.8 g/dL (6.4-8.2); SODIUM 143 mmol/L (136-145); UREA NITROGEN 9 mg/dL (7-18)
[2019-10-17 05:03] LABS: BASOPHILS 0.5 % (0-2); EOSINOPHILS 1.9 % (0-7); HEMOGLOBIN 8.8 g/dL (12-16); IMMATURE GRANULOCYTES 0.5 % (0-5); LYMPHOCYTES 33.7 % (15-50); MCH 35.9 pg (26.0-34.0); MCHC 31.4 g/dL (31.0-37.0); MCV 114.3 fL (80.0-100.0); MEAN PLATELET VOLUME 8.8 fL (7.4-10.4); MONOCYTES 6.8 % (2-11); NEUTROPHILS 56.6 % (40-80); PLATELET COUNT 455 10x3/uL (130-400); RBC 2.45 10x6/uL (4.00-5.40); RDW 13.1 % (11.5-14.5); WBC 8.8 10x3/uL (4.8-10.8)
[2019-10-17 05:13] LABS: CREATININE - SERUM 0.4 mg/dL (0.6-1.3); eGFR NON AFRICAN AMERICAN > 90 mL/min (90-120)
--- NOTE | 2019-10-17 08:07 | MORECARE ---
CASE MANAGEMENT DISCHARGE SUMMARY PATIENT: KAVON GOLDSMITH UNIT: [id number] ADM DATE: 09/17/19 AGE: 48 : 70 SEX: F ROOM/BED: D.2205 AUTHOR: ENEDINA,DOC PHYSICIAN: REFERRING PHYSICIAN: MARLENE RIBERA MD DATE OF SERVICE: 10/17/19 Discharge Plan Patient Name: KAVON GOLDSMITH Facility: [facility]:[place] : 1970 Planned Disposition: Inpatient Rehab Anticipated Discharge Date: Discharge Date: Expected LOS: Initial Reviewer: [id number] Initial Review Date: 09/17/2019 Generated: 10/17/19 9:06 am DCP- Discharge Planning Updated by [id number]: Ericka Espinosa on 10/16/19 8:[address] RECEIVED A CALL YESTERDAY FROM SHAWNA AT [facility], HE SAID THAT THE ADMIN DID NOT THINK THAT SHE WOULD DO WELL IN ISOLATION THIS MORNING SHAWNA CALLED AND SAID THAT THEY REVIEWED THE NEW CLINICAL YESTERDAY THAT I SENT AND THEY WILL ACCEPT HER AND THEY HAD SUBMITTED FOR AUTH WITH, SHANELLE AND COVID HAS BEEN SENT OFF. THE PATIENT IS EXCITED I ATTEMPTED TO CALL HER MOTHER AND BINU, I DID NOT GET ANSWER. SIMONA SIGNED AND IMM ALSO SERVED AND EXPLAINED. CM WILL WAIT FOR THE SHANELLE AND COVID AND THE AUTH FROM INSURANCE. DCP- Discharge Planning Updated by [id number]: Ericka Espinosa on 10/15/19 5:[address] UPDATED CLINICALS SENT TO [facility] WILL CALL SHAWNA TO SEE IF HE HAD A CHANCE TO LOOK OVER PAPERWORK THIS AM. PER SPEECH AND PATIENT NURSE, SHE HAD A GREAT DAY YESTERDAY DCP- Discharge Planning Updated by [id number]: Ericka Espinosa on 10/14/19 11:[address] I SPOKE WITH SHAWNA WITH [facility], THEY DO ACCEPT HER INSURANCE, I HAVE SENT THE REFERRAL SHAWNA # [phone] FAX # [phone] DCP- Discharge Planning Updated by [email or web address]: Ericka Espinosa on 10/14/19 7:[address] [facility] DOES NOT ACCPET HER INSURANCE I WILL ATTEPMT [facility] DCP- Discharge Planning Updated by [id number]: Ericka Espinosa on 10/14/19 7:[address] I have contacted Vanessa, she does not have any facilities in [facility]. I have contacted [facility] in [place] ), to see if they take the patient's insurance DCP- Discharge Planning Updated by [id number]: Ericka Espinosa on 10/10/19 10:[address] RECEIVED CALL FROM ARIS FROM [facility] AND THEY DID NOT TAKE HER INSURANCE DCP- Discharge Planning Updated by [id number]: Ericka Espinosa on 10/10/19 8:[address] SPOKE TO MOTHER AND PATIENT AT LENGTH ABOUT WHAT THE PLAN AND WHAT PROGESS I HAVE MADE. CM WILL CONTINUE TO FOLLOW AND ASSSIT DCP- Discharge Planning Updated by [id number]: Ericka Espinosa on 10/10/19 8:[address] attempted to call the patient's mother to roller mill tender her an update on progress and was unsuccessful I did not get an answer DCP- Discharge Planning Updated by [id number]: Ericka Espinosa on 10/10/19 7:[address] spoke with Aris at [facility] about patient and they are reviewing her chart DCP- Discharge Planning Updated by [email or web address]: Ericka Espinosa on 10/09/19 1:[address] [facility] CALLED AND STATED THAT THEY ARE NOT IN NETWORK WITH HER INSURANCE I WILL SEND THE REFERRAL TO [facility] DCP- Discharge Planning Updated by [id number]: Ericka Espinosa on 10/09/19 11:[address] [facility], I spoke with sana DCP- Discharge Planning Updated by [id number]: Ericka Espinosa on 10/08/19 2:[address] AFTER RECEIVING AUTH FROM [facility] I RECEIVED A CALL FROM [facility] THAT THEY WOULD NOT ACCEPT HER BECAUSE OF STAFFING AND QUESTION WITH FEEDS. MCKENNA PADILLA HAS SPOKEN TO THE PATIENT ABOUT THIS. A NEW REFERRAL WAS SENT TO [facility] STATED THAT THEY WOULD TRANSFER THE AUTH TO [facility] IF THEY ACCEPT. CM TO FOLLOW AND ASSIST NEEDED DCP- Discharge Planning Updated by [id number]: Ericka Espinosa on 10/08/19 12:[address] patient will be discharging to inpatient rehab at [facility] imm served and signed mom at bedside cm to follow and assist as needed DCP- Discharge Planning Updated by [id number]: Ericka Espinosa on 09/19/19 10:[address] Patient Name: KAVON GOLDSMITH Admission Status: ER Accout number: [id number] Admission Date: 09-17-2019 : 1970 Admission Diagnosis: Attending: PETER Current LOS: 2 Anticipated DC Date: Planned Disposition: Inpatient Rehab Primary Insurance: [employer] Discharge Planning Comments: CM spoke with patients /ex- about discharge plan. He stated that they have built a 400x 12 [address] cabin on her parents property where she can be independent with her care. She has a electric wheelchair, walker, scooter, service dog. Per her she started having seizures in 2013 after she had a stroke. He stated that her legs were very weak. He said that she did walk at home with her walker. He has made her cabin accessible for her with rails on her toilet. Her home address is [address] [place] [address]. her cell number is [phone]. He would like her to go to inpatient rehab here at [facility]. He said he did not think that she would go to a half-way home. He would like her to go to [facility] after inpatient rehab if needed. CM will speak to patient to see what her plan is. Binu was very helpful and seem like he is a good support system for her. Risk Management Analyst: Ericka Esipnosa DCPIA - Discharge Planning Initial Assessment Updated by [id number]: Ericka Espinosa on 09/19/19 10:37 am * Is the patient Alert and Oriented? Yes * How many steps to enter\exit or inside your home? * PCP JANNETH * Preadmission Environment Home Alone * ADLs Partial Dependent * Partial ADLs (Assistance needed) Ambulation Medication Management Toileting * Equipment Bedside Commode Grab Bars Power Chair or Electric Scooter Rolling Walker Shower Chair Walker Wheelchair * Other Equipment SERVICE DOG * List name and contact numbers for known caregivers / representatives who currently or will assist patient after discharge: BINU GOLDSMITH- [phone] * Verbal permission to speak to the caregivers and representatives has been obtained from the patient. Yes * Additional services required to return to the preadmission environment? Yes * Has this patient been hospitalized within the prior 30 days at any hospital? Yes Coverage Notice Reviewer: [id number] Espinosa Notice Issued Date-Time: 10/08/2019 12:50 Notice Type: IM Discharge Notice Notice Delivered To: Patient Relationship to Patient: Director Sales Support Name: Delivery Method: HAND - Hand Delivered Lisandra Days: Prior Verbal Notification: Recipient Understood Notice: Yes Recipient Signature: Yes Med Rec Note Co-signed by Attending: Coverage Notice Comment: Reviewer: SANDRA Espinosa Notice Issued Date-Time: 10/08/2019 12:50 Notice Type: Patient Choice Letter Notice Delivered To: Patient Relationship to Patient: Director Sales Support Name: Delivery Method: HAND - Hand Delivered Lisandra Days: Prior Verbal Notification: Recipient Understood Notice: Yes Recipient Signature: Yes Med Rec Note Co-signed by Attending: Coverage Notice Comment: inpatient rehab Reviewer: SANDRA Espinosa Notice Issued Date-Time: 10/16/2019 8:30 Notice Type: IM Discharge Notice Notice Delivered To: Patient Relationship to Patient: Director Sales Support Name: Delivery Method: HAND - Hand Delivered Lisandra Days: Prior Verbal Notification: Recipient Understood Notice: Yes Recipient Signature: Yes Med Rec Note Co-signed by Attending: Coverage Notice Comment: IMM SERVED AND EXPLAINED Reviewer: [id number] Espinosa Notice Issued Date-Time: 10/16/2019 8:30 Notice Type: Patient Choice Letter Notice Delivered To: Patient Relationship to Patient: Director Sales Support Name: Delivery Method: HAND - Hand Delivered Lisandra Days: Prior Verbal Notification: Recipient Understood Notice: Yes Recipient Signature: Yes Med Rec Note Co-signed by Attending: Coverage Notice Comment: TREVA Brumfield DP export: 10/16/19 8:34 am Patient Name: KAVON GOLDSMITH Page [id number] at 0807 All edits/amendments must be made on the electronic document DICTATION DATE: 10/17/19805 COTTON ROLL PACKER: SOFI 10/17/19805 RPT#: [id number] DC DATE: STATUS: ADM IN [facility] [address] [place] [address] END OF REPORT
[2019-10-17 09:45] VITALS: BP 118/77
[2019-10-17 12:54] VITALS: BP 120/64
--- NOTE | 2019-10-17 17:01 | MORECARE ---
CASE MANAGEMENT DISCHARGE SUMMARY PATIENT: KAVON GOLDSMITH UNIT: [id number] ADM DATE: 09/17/19 AGE: 48 : 70 SEX: F ROOM/BED: D.2205 AUTHOR: ENEDINADOC PHYSICIAN: REFERRING PHYSICIAN: MARLENE RIBERA MD DATE OF SERVICE: 10/17/19 Discharge Plan Patient Name: KAVON GOLDSMITH Facility: [facility]:[place] : 1970 Planned Disposition: Inpatient Rehab Anticipated Discharge Date: Discharge Date: Expected LOS: Initial Reviewer: [id number] Initial Review Date: 09/17/2019 Generated: 10/17/19 6:00 pm Comments DCP- Discharge Planning Updated by [email or web address]: Ericka Espinosa on 10/17/19 3:[address] Shawna with [facility] called this morning to let me know that they are still waiting on auth from her insurance. They have accepted her clinically but waiting on Auth. I have updated her about all of this DCP- Discharge Planning Updated by [id number]: Ericka Espinosa on 10/16/19 8:[address] RECEIVED A CALL YESTERDAY FROM SHAWNA AT [facility], HE SAID THAT THE ADMIN DID NOT THINK THAT SHE WOULD DO WELL IN ISOLATION THIS MORNING SHAWNA CALLED AND SAID THAT THEY REVIEWED THE NEW CLINICAL YESTERDAY THAT I SENT AND THEY WILL ACCEPT HER AND THEY HAD SUBMITTED FOR AUTH WITH, HSANELLE AND COVID HAS BEEN SENT OFF. THE PATIENT IS EXCITED I ATTEMPTED TO CALL HER MOTHER AND BINU, I DID NOT GET ANSWER. SIMONA SIGNED AND IMM ALSO SERVED AND EXPLAINED. CM WILL WAIT FOR THE SHANELLE AND COVID AND THE AUTH FROM INSURANCE. DCP- Discharge Planning Updated by [id number]: Ericka Espinosa on 10/15/19 5:[address] UPDATED CLINICALS SENT TO [facility] WILL CALL SHAWNA TO SEE IF HE HAD A CHANCE TO LOOK OVER PAPERWORK THIS AM. PER SPEECH AND PATIENT NURSE, SHE HAD A GREAT DAY YESTERDAY DCP- Discharge Planning Updated by [id number]: Ericka Espinosa on 10/14/19 11:[address] I SPOKE WITH SHAWNA WITH [facility], THEY DO ACCEPT HER INSURANCE, I HAVE SENT THE REFERRAL SHAWNA # [phone] FAX # [phone] DCP- Discharge Planning Updated by [id number]: Ericka Espinosa on 10/14/19 7:[address] [facility] DOES NOT ACCPET HER INSURANCE I WILL ATT[facility]MT [facility] DCP- Discharge Planning Updated by [id number]: Ericka Espinosa on 10/14/19 7:[address] I have contacted Vanessa, she does not have any facilities in [facility]. I have contacted [facility] in [place] ( [phone]), to see if they take the patient's insurance DCP- Discharge Planning Updated by [id number]: Ericka Espinosa on 10/10/19 10:[address] RECEIVED CALL FROM ARIS FROM [facility] AND THEY DID NOT TAKE HER INSURANCE DCP- Discharge Planning Updated by [id number]: Ericka Espinosa on 10/10/19 8:[address] SPOKE TO MOTHER AND PATIENT AT LENGTH ABOUT WHAT THE PLAN AND WHAT PROGESS I HAVE MADE. CM WILL CONTINUE TO FOLLOW AND ASSSIT DCP- Discharge Planning Updated by [id number]: Ericka Espinosa on 10/10/19 8:[address] attempted to call the patient's mother to maintenance inspector her an update on progress and was unsuccessful I did not get an answer DCP- Discharge Planning Updated by [id number]: Ericka Espinosa on 10/10/19 7:[address] spoke with Aris at [facility] about patient and they are reviewing her chart DCP- Discharge Planning Updated by [id number]: Ericka Espinosa on 10/09/19 1:[address] [facility] CALLED AND STATED THAT THEY ARE NOT IN NETWORK WITH HER INSURANCE I WILL SEND THE REFERRAL TO [facility] DCP- Discharge Planning Updated by [id number]: Ericka Espinosa on 10/09/19 11:[address] referral sent to [facility], I spoke with sana DCP- Discharge Planning Updated by [id number]: Ericka Espinosa on 10/08/19 2:[address] AFTER RECEIVING AUTH FROM [facility] I RECEIVED A CALL FROM [facility] THAT THEY WOULD NOT ACCEPT HER BECAUSE OF STAFFING AND QUESTION WITH FEEDS. MCKENNA PADILLA HAS SPOKEN TO THE PATIENT ABOUT THIS. A NEW REFERRAL WAS SENT TO [facility] JULIANA STATED THAT THEY WOULD TRANSFER THE AUTH TO [facility] IF THEY ACCEPT. CM TO FOLLOW AND ASSIST NEEDED DCP- Discharge Planning Updated by [id number]: Ericka Espinosa on 10/08/19 12:[address] patient will be discharging to inpatient rehab at [facility] imm served and signed mom at bedside cm to follow and assist as needed DCP- Discharge Planning Updated by [id number]: Ericka Espinosa on 09/19/19 10:[address] Patient Name: KAVON GOLDSMITH Admission Status: ER Accout number: [id number] Admission Date: 09-17-2019 : 1970 Admission Diagnosis: Attending: PETER Current LOS: 2 Anticipated DC Date: Planned Disposition: Inpatient Rehab Primary Insurance: [employer] Discharge Planning Comments: CM spoke with patients /ex- about discharge plan. He stated that they have built a 400x 12 ft cabin on her parents property where she can be independent with her care. She has a electric wheelchair, walker, scooter, service dog. Per her she started having seizures in 2013 after she had a stroke. He stated that her legs were very weak. He said that she did walk at home with her walker. He has made her cabin accessible for her with rails on her toilet. Her home address is [address] [place] [address]. her cell number is [phone]. He would like her to go to inpatient rehab here at [facility]. He said he did not think that she would go to a group home home. He would like her to go to [facility] after inpatient rehab if needed. CM will speak to patient to see what her plan is. Binu was very helpful and seem like he is a good support system for her. Electronic Typesetting Machine Operator: Ericka Espinosa DCPIA - Discharge Planning Initial Assessment Updated by [id number]: Ericka Espinosa on 09/19/19 10:37 am * Is the patient Alert and Oriented? Yes * How many steps to enter\exit or inside your home? * PCP JANNETH * Preadmission Environment Home Alone * ADLs Partial Dependent * Partial ADLs (Assistance needed) Ambulation Medication Management Toileting * Equipment Bedside Commode Grab Bars Power Chair or Electric Scooter Rolling Walker Shower Chair Walker Wheelchair * Other Equipment SERVICE DOG * List name and contact numbers for known caregivers / representatives who currently or will assist patient after discharge: BINU GOLDSMITH- [phone] * Verbal permission to speak to the caregivers and representatives has been obtained from the patient. Yes * Additional services required to return to the preadmission environment? Yes * Has this patient been hospitalized within the prior 30 days at any hospital? Yes Coverage Notice Reviewer: [id number] Espinosa Notice Issued Date-Time: 10/08/2019 12:50 Notice Type: IM Discharge Notice Notice Delivered To: Patient Relationship to Patient: Sheet Metal Journeyman Name: Delivery Method: HAND - Hand Delivered Lisandra Days: Prior Verbal Notification: Recipient Understood Notice: Yes Recipient Signature: Yes Med Rec Note Co-signed by Attending: Coverage Notice Comment: Reviewer: SANDRA Espinosa Notice Issued Date-Time: 10/08/2019 12:50 Notice Type: Patient Choice Letter Notice Delivered To: Patient Relationship to Patient: Sheet Metal Journeyman Name: Delivery Method: HAND - Hand Delivered Lisandra Days: Prior Verbal Notification: Recipient Understood Notice: Yes Recipient Signature: Yes Med Rec Note Co-signed by Attending: Coverage Notice Comment: inpatient rehab Reviewer: SANDRA Espinosa Notice Issued Date-Time: 10/16/2019 8:30 Notice Type: IM Discharge Notice Notice Delivered To: Patient Relationship to Patient: Sheet Metal Journeyman Name: Delivery Method: HAND - Hand Delivered Lisandra Days: Prior Verbal Notification: Recipient Understood Notice: Yes Recipient Signature: Yes Med Rec Note Co-signed by Attending: Coverage Notice Comment: IMM SERVED AND EXPLAINED Reviewer: SANDRA Espinosa Notice Issued Date-Time: 10/16/2019 8:30 Notice Type: Patient Choice Letter Notice Delivered To: Patient Relationship to Patient: Sheet Metal Journeyman Name: Delivery Method: HAND - Hand Delivered Lisandra Days: Prior Verbal Notification: Recipient Understood Notice: Yes Recipient Signature: Yes Med Rec Note Co-signed by Attending: Coverage Notice Comment: [facility] DP export: 10/17/19 7:07 am Patient Name: KAVON GOLDSMITH Page [id number] at 1701 All edits/amendments must be made on the electronic document DICTATION DATE: 09/04/20 1701 ANIMAL CARE WORKER: SOFI 10/17/191700 RPT#: [id number] DC DATE: STATUS: ADM IN [facility] [address] [place] [address] END OF REPORT
[2019-10-17 17:35] VITALS: BP 100/42
--- NOTE | 2019-10-17 20:00 | NUR ---
PT REQUESTING PRN PAIN MED. INFORMED IT IS TOO EARLY FOR NEXT DOSE. REPORTS NAUSEA, CAITLYN PINEDO NOTIFIED AND NEW ORDERS ADDED PER ORDER. CTM.
[2019-10-17 22:04] VITALS: BP 111/61
[2019-10-18 03:09] VITALS: BP 98/50
--- NOTE | 2019-10-18 03:50 | NUR ---
I have reviewed this patient and I concur with the Shift Assessment completed by the Licensed Practical Nurse today this shift.
--- NOTE | 2019-10-18 08:01 | NUR ---
PT REQ PAIN MEDS, WILL CK BP, HAMILTON TO GRAVITY, CONT TO MONITOR DIARRHEA
[2019-10-18 09:14] LABS: BASOPHILS 0.8 % (0-2); EOSINOPHILS 0.8 % (0-7); HEMATOCRIT 28.2 % (36.0-48.0); HEMOGLOBIN 8.8 g/dL (12-16); IMMATURE GRANULOCYTES 0.3 % (0-5); LYMPHOCYTES 31.4 % (15-50); MCH 35.8 pg (26.0-34.0); MCHC 31.2 g/dL (31.0-37.0); MCV 114.6 fL (80.0-100.0); MEAN PLATELET VOLUME 8.7 fL (7.4-10.4); MONOCYTES 5.1 % (2-11); NEUTROPHILS 61.6 % (40-80); PLATELET COUNT 408 10x3/uL (130-400); RBC 2.46 10x6/uL (4.00-5.40); RDW 13.1 % (11.5-14.5); WBC 7.5 10x3/uL (4.8-10.8)
[2019-10-18 09:27] LABS: ALBUMIN 1.2 g/dL (3.4-5.0); ALKALINE PHOSPHATASE 93 U/L (30-120); ALT (SGPT) 8 U/L (10-68); CALC OSMOLALITY 281 mosm/kg (275-300); CALCIUM 7.9 mg/dL (8.5-10.1); CARBON DIOXIDE 29.1 mmol/L (21.0-32.0); CHLORIDE - SERUM 109 mmol/L (98-107); CREATININE - SERUM 0.3 mg/dL (0.6-1.3); GLUCOSE 89 mg/dL (74-106); POTASSIUM - SERUM 4.1 mmol/L (3.5-5.1); PROTEIN - SERUM 4.5 g/dL (6.4-8.2); SODIUM 143 mmol/L (136-145); UREA NITROGEN 7 mg/dL (7-18); eGFR NON AFRICAN AMERICAN > 90 mL/min (90-120)
[2019-10-18 09:29] LABS: BILIRUBIN - TOTAL 0.07 mg/dL (0.2-1.3)
[2019-10-18 10:26] VITALS: BP 92/55
[2019-10-18 17:35] VITALS: BP 120/62
[2019-10-18 22:21] VITALS: BP 127/59
--- NOTE | 2019-10-18 22:45 | NUR ---
A&O X 4, SUPINE IN BED. INCONTINENT BM. GOWN/LINENS CHANGED, LUIS MIGUEL/HAMILTON CARE PROVIDED, STAT LOCK CHANGED. PAIN 10/10 TO LEFT HIP AND RLQ ABDOMEN DISCOMFORT. CTM.
[2019-10-19 01:07] VITALS: BP 106/57
--- NOTE | 2019-10-19 02:30 | NUR ---
I have reviewed this patient and I concur with the Shift Assessment completed by the Licensed Practical Nurse today this shift.
[2019-10-19 06:15] LABS: BASOPHILS 0.6 % (0-2); EOSINOPHILS 1.7 % (0-7); HEMATOCRIT 33.1 % (36.0-48.0); IMMATURE GRANULOCYTES 0.4 % (0-5); LYMPHOCYTES 32.5 % (15-50); MCH 35.5 pg (26.0-34.0); MCHC 30.2 g/dL (31.0-37.0); MEAN PLATELET VOLUME 8.8 fL (7.4-10.4); MONOCYTES 3.2 % (2-11); NEUTROPHILS 61.6 % (40-80); PLATELET COUNT 430 10x3/uL (130-400); RBC 2.82 10x6/uL (4.00-5.40); RDW 13.4 % (11.5-14.5); WBC 7.3 10x3/uL (4.8-10.8)
[2019-10-19 06:18] LABS: MCV 117.4 fL (80.0-100.0)
[2019-10-19 06:49] VITALS: BP 97/57
[2019-10-19 07:07] LABS: ALBUMIN 1.5 g/dL (3.4-5.0); ALKALINE PHOSPHATASE 99 U/L (30-120); ALT (SGPT) 9 U/L (10-68); CALCIUM 8.2 mg/dL (8.5-10.1); CARBON DIOXIDE 24.7 mmol/L (21.0-32.0); CHLORIDE - SERUM 109 mmol/L (98-107); GLUCOSE 133 mg/dL (74-106); PROTEIN - SERUM 5.1 g/dL (6.4-8.2); SODIUM 144 mmol/L (136-145)
[2019-10-19 07:11] LABS: BILIRUBIN - TOTAL 0.07 mg/dL (0.2-1.3); CALC OSMOLALITY 287 mosm/kg (275-300); CREATININE - SERUM 0.4 mg/dL (0.6-1.3); UREA NITROGEN 9 mg/dL (7-18); eGFR NON AFRICAN AMERICAN > 90 mL/min (90-120)
[2019-10-19 09:03] VITALS: BP 100/45
--- NOTE | 2019-10-19 09:53 | NUR ---
PT ALERT X 4. BREATH SOUNDS CLEAR BILAT. IV TO RIGHT WRIST, SALINE LOCKED. PEG TUBE TO LLQ, SCAB ON RIGHT SIDE OF ABDOMEN. PT REPORTING PAIN OF 10/10, MEDICATED PER ORDERS, WILL CONTINUE TO MONITOR. 1ST STEP BED IN USE. HAMILTON IN PLACE, URINE DARK YELLOW AND CLOUDY. BED LOW, CALL LIGHT IN REACH. NO OTHER NEEDS AT THIS TIME.
[2019-10-19 12:53] VITALS: BP 101/48
[2019-10-19 17:31] VITALS: BP 100/60
--- NOTE | 2019-10-19 19:50 | NUR ---
RESPONDED TO PATIENT'S CALL LIGHT. PATIENT REQUESTED PAIN MEDICATION. EXPLAINED TO THE PATIENT THAT SHE STILL HAD APROX 2 HOURS UNTIL HER PAIN MED IS DUE. PATIENT VERBALIZED UNDERSTANDING AND DENIES OTHER NEEDS AT THIS TIME. BED IN LOWEST POSITION AND CALL LIGHT WITHIN REACH. ENCOURAGED THE PATIENT TO CALL IF SHE HAS NEEDS. WILL CONTINUE TO MONITOR.
[2019-10-19 23:19] VITALS: BP 113/62
[2019-10-20 03:24] VITALS: BP 108/66
[2019-10-20 05:37] LABS: BASOPHILS 0.7 % (0-2); EOSINOPHILS 2.2 % (0-7); HEMATOCRIT 27.6 % (36.0-48.0); HEMOGLOBIN 8.5 g/dL (12-16); IMMATURE GRANULOCYTES 0.4 % (0-5); LYMPHOCYTES 42.6 % (15-50); MCH 35.1 pg (26.0-34.0); MCHC 30.8 g/dL (31.0-37.0); MEAN PLATELET VOLUME 8.8 fL (7.4-10.4); MONOCYTES 6.7 % (2-11); NEUTROPHILS 47.4 % (40-80); PLATELET COUNT 394 10x3/uL (130-400); RBC 2.42 10x6/uL (4.00-5.40); RDW 13.3 % (11.5-14.5); WBC 7.3 10x3/uL (4.8-10.8)
[2019-10-20 05:57] LABS: ALBUMIN 1.3 g/dL (3.4-5.0); ALKALINE PHOSPHATASE 80 U/L (30-120); ALT (SGPT) 7 U/L (10-68); BILIRUBIN - TOTAL 0.07 mg/dL (0.2-1.3); CALCIUM 7.6 mg/dL (8.5-10.1); CARBON DIOXIDE 25.6 mmol/L (21.0-32.0); CHLORIDE - SERUM 110 mmol/L (98-107); CREATININE - SERUM 0.4 mg/dL (0.6-1.3); POTASSIUM - SERUM 3.7 mmol/L (3.5-5.1); PROTEIN - SERUM 4.8 g/dL (6.4-8.2); SODIUM 142 mmol/L (136-145); UREA NITROGEN 7 mg/dL (7-18); eGFR NON AFRICAN AMERICAN > 90 mL/min (90-120)
[2019-10-20 06:10] LABS: CALC OSMOLALITY 279 mosm/kg (275-300); GLUCOSE 80 mg/dL (74-106)
[2019-10-20 06:40] VITALS: BP 112/49
[2019-10-20 09:22] VITALS: BP 107/60
--- NOTE | 2019-10-20 10:53 | NUR ---
ADMINISTERED PRN PAIN MEDICATIONS WITH SCHEDULED MORNING MEDS. PT SAT UP WITH PHYSICAL THERAPY. NO OTHER NEEDS AT THIS TIME
[2019-10-20 13:05] VITALS: BP 98/55
[2019-10-20 17:54] VITALS: BP 101/40
--- NOTE | 2019-10-20 18:42 | NUR ---
OT NOTE: PT COMPLETED SUPINE TO SIT AT EOB WITH MOD A. PT COMPLETED EOB SITTING WITH SBA. PT COMPLETED UE AROM EXS TOLERATED AT EOB. PT EXHIBITED INCREASED ENDURANCE. [phone] THANK YOU,ARASH SOTO
--- NOTE | 2019-10-20 18:45 | NUR ---
I have reviewed this patient and I concur with the Shift Assessment completed by the Licensed Practical Nurse today this shift.
--- NOTE | 2019-10-20 19:25 | NUR ---
RESPONDED TO PATIENT'S CALL LIGHT. PATIENT DENIES NEEDS AT THIS TIME. BED IN LOWEST POSITION AND CALL LIGHT WITHIN REACH. ENCOURAGED THE PATIENT TO CALL IF SHE HAS NEEDS. WILL CONTINUE TO MONITOR.
[2019-10-20 20:00] VITALS: BP 103/52
[2019-10-21] VITALS: BP 105/51
[2019-10-21 04:00] VITALS: BP 101/49
[2019-10-21 07:20] LABS: BASOPHILS 0.6 % (0-2); EOSINOPHILS 1.9 % (0-7); IMMATURE GRANULOCYTES 0.4 % (0-5); LYMPHOCYTES 29.4 % (15-50); MCH 35.2 pg (26.0-34.0); MCV 113.3 fL (80.0-100.0); MEAN PLATELET VOLUME 8.9 fL (7.4-10.4); MONOCYTES 8.1 % (2-11); NEUTROPHILS 59.6 % (40-80); RBC 2.56 10x6/uL (4.00-5.40); RDW 13.3 % (11.5-14.5); WBC 6.8 10x3/uL (4.8-10.8)
[2019-10-21 07:24] LABS: ALBUMIN 1.4 g/dL (3.4-5.0); ALKALINE PHOSPHATASE 127 U/L (30-120); CALCIUM 7.7 mg/dL (8.5-10.1); CARBON DIOXIDE 28.6 mmol/L (21.0-32.0); CREATININE - SERUM 0.4 mg/dL (0.6-1.3); GLUCOSE 86 mg/dL (74-106); PROTEIN - SERUM 4.5 g/dL (6.4-8.2); UREA NITROGEN 6 mg/dL (7-18); eGFR NON AFRICAN AMERICAN > 90 mL/min (90-120)
[2019-10-21 07:26] LABS: PLATELET COUNT 314 10x3/uL (130-400)
[2019-10-21 07:41] LABS: CALC OSMOLALITY 281 mosm/kg (275-300); CHLORIDE - SERUM 110 mmol/L (98-107); POTASSIUM - SERUM 4.2 mmol/L (3.5-5.1); SODIUM 143 mmol/L (136-145)
[2019-10-21 07:42] LABS: ALT (SGPT) 12 U/L (10-68); BILIRUBIN - TOTAL 0.05 mg/dL (0.2-1.3)
[2019-10-21 08:55] VITALS: BP 109/58
--- NOTE | 2019-10-21 10:24 | MORECARE ---
CASE MANAGEMENT DISCHARGE SUMMARY PATIENT: VIANEY GOLDSMITH UNIT: [id number] ADM DATE: 09/17/19 AGE: 48 : 70 SEX: F ROOM/BED: D.2205 AUTHOR: ENEDINADOC PHYSICIAN: REFERRING PHYSICIAN: MARLENE RIBERA MD DATE OF SERVICE: 10/21/19 Discharge Plan Patient Name: VIANEY GOLDSMITH Facility: [facility]:[place] : 1970 Planned Disposition: Inpatient Rehab Anticipated Discharge Date: Discharge Date: Expected LOS: Initial Reviewer: [id number] Initial Review Date: 09/17/2019 Generated: 10/21/19 11:24 am Comments DCP- Discharge Planning Updated by [id number]: Ericka Espinosa on 10/21/19 9:[address] Shawna with [facility] called and stated that she has acceptance. IMM served and explained. I called Binu & didn't get an answer I called patient's mother Vianey & she is aware of the discharge. Patient will be going via EMS. DCP- Discharge Planning Updated by [id number]: Ericka Espinosa on 10/17/19 3:[address] Shawna with [facility] called this morning to let me know that they are still waiting on auth from her insurance. They have accepted her clinically but waiting on Auth. I have updated her about all of this DCP- Discharge Planning Updated by [id number]: Ericka Espinosa on 10/16/19 8:[address] RECEIVED A CALL YESTERDAY FROM SHAWNA AT [facility], HE SAID THAT THE ADMIN DID NOT THINK THAT SHE WOULD DO WELL IN ISOLATION THIS MORNING SHAWNA CALLED AND SAID THAT THEY REVIEWED THE NEW CLINICAL YESTERDAY THAT I SENT AND THEY WILL ACCEPT HER AND THEY HAD SUBMITTED FOR AUTH WITH, SHANELLE AND COVID HAS BEEN SENT OFF. THE PATIENT IS EXCITED I ATTEMPTED TO CALL HER MOTHER AND BINU, I DID NOT GET ANSWER. SIMONA SIGNED AND IMM ALSO SERVED AND EXPLAINED. CM WILL WAIT FOR THE SHANELLE AND COVID AND THE AUTH FROM INSURANCE. DCP- Discharge Planning Updated by [id number]: Ericka Espinosa on 10/15/19 5:[address] UPDATED CLINICALS SENT TO [facility] WILL CALL SHAWNA TO SEE IF HE HAD A CHANCE TO LOOK OVER PAPERWORK THIS AM. PER SPEECH AND PATIENT NURSE, SHE HAD A GREAT DAY YESTERDAY DCP- Discharge Planning Updated by [id number]: Ericka Espinosa on 10/14/19 11:[address] I SPOKE WITH SHAWNA WITH [facility], THEY DO ACCEPT HER INSURANCE, I HAVE SENT THE REFERRAL SHAWNA # [phone] FAX # [phone] DCP- Discharge Planning Updated by [id number]: Ericka Espinosa on 10/14/19 7:[address] [facility] DOES NOT ACCPET HER INSURANCE I WILL ATTEPMT [facility] DCP- Discharge Planning Updated by [email or web address]: Ericka Espinosa on 10/14/19 7:[address] I have contacted Vanessa, she does not have any facilities in [facility]. I have contacted [facility] in [place] ), to see if they take the patient's insurance DCP- Discharge Planning Updated by [id number]: Ericka Espinosa on 10/10/19 10:[address] RECEIVED CALL FROM ARIS FROM [facility] AND THEY DID NOT TAKE HER INSURANCE DCP- Discharge Planning Updated by [id number]: Ericka Espinosa on 10/10/19 8:[address] SPOKE TO MOTHER AND PATIENT AT LENGTH ABOUT WHAT THE PLAN AND WHAT PROGESS I HAVE MADE. CM WILL CONTINUE TO FOLLOW AND ASSSIT DCP- Discharge Planning Updated by [id number]: Ericka Espinosa on 10/10/19 8:[address] attempted to call the patient's mother to personal caregiver her an update on progress and was unsuccessful I did not get an answer DCP- Discharge Planning Updated by [id number]: Ericka Espinosa on 10/10/19 7:[address] spoke with Aris at [facility] about patient and they are reviewing her chart DCP- Discharge Planning Updated by [id number]: Ericka Espinosa on 10/09/19 1:[address] [facility] CALLED AND STATED THAT THEY ARE NOT IN NETWORK WITH HER INSURANCE I WILL SEND THE REFERRAL TO [facility] DCP- Discharge Planning Updated by [id number]: Ericka Espinosa on 10/09/19 11:[address] referral sent to [facility], I spoke with sana DCP- Discharge Planning Updated by [id number]: Ericka Espinosa on 10/08/19 2:[address] AFTER RECEIVING AUTH FROM [facility] I RECEIVED A CALL FROM [facility] THAT THEY WOULD NOT ACCEPT HER BECAUSE OF STAFFING AND QUESTION WITH FEEDS. MCKENNA PADILLA HAS SPOKEN TO THE PATIENT ABOUT THIS. A NEW REFERRAL WAS SENT TO [facility] JULIANA STATED THAT THEY WOULD TRANSFER THE AUTH TO [facility] IF THEY ACCEPT. CM TO FOLLOW AND ASSIST NEEDED DCP- Discharge Planning Updated by [id number]: Ericka Espinosa on 10/08/19 12:[address] patient will be discharging to inpatient rehab at [facility] imm served and signed mom at bedside cm to follow and assist as needed DCP- Discharge Planning Updated by [id number]: Ericka Espinosa on 09/19/19 10:[address] Patient Name: VIANEY GOLDSMITH Admission Status: ER Accout number: [id number] Admission Date: 09-17-2019 : 1970 Admission Diagnosis: Attending: PETER Current LOS: 2 Anticipated DC Date: Planned Disposition: Inpatient Rehab Primary Insurance: [email or web address] Discharge Planning Comments: CM spoke with patients /ex- about discharge plan. He stated that they have built a 400x 12 [address] cabin on her parents property where she can be independent with her care. She has a electric wheelchair, walker, scooter, service dog. Per her she started having seizures in 2013 after she had a stroke. He stated that her legs were very weak. He said that she did walk at home with her walker. He has made her cabin accessible for her with rails on her toilet. Her home address is [address] [place] [address]. her cell number is [phone]. He would like her to go to inpatient rehab here at [facility]. He said he did not think that she would go to a fdc home. He would like her to go to [facility] after inpatient rehab if needed. CM will speak to patient to see what her plan is. Binu was very helpful and seem like he is a good support system for her. Geodetic Technician: Ericka Espinosa DCPIA - Discharge Planning Initial Assessment Updated by [id number]: Ericka Espinosa on 09/19/19 10:37 am * Is the patient Alert and Oriented? Yes * How many steps to enter\exit or inside your home? * PCP JANNETH * Preadmission Environment Home Alone * ADLs Partial Dependent * Partial ADLs (Assistance needed) Ambulation Medication Management Toileting * Equipment Bedside Commode Grab Bars Power Chair or Electric Scooter Rolling Walker Shower Chair Walker Wheelchair * Other Equipment SERVICE DOG * List name and contact numbers for known caregivers / representatives who currently or will assist patient after discharge: BINU GOLDSMITH- [phone] * Verbal permission to speak to the caregivers and representatives has been obtained from the patient. Yes * Additional services required to return to the preadmission environment? Yes * Has this patient been hospitalized within the prior 30 days at any hospital? Yes Coverage Notice Reviewer: [id number] Espinosa Notice Issued Date-Time: 10/08/2019 12:50 Notice Type: IM Discharge Notice Notice Delivered To: Patient Relationship to Patient: Assistant Office Manager Name: Delivery Method: HAND - Hand Delivered Lisandra Days: Prior Verbal Notification: Recipient Understood Notice: Yes Recipient Signature: Yes Med Rec Note Co-signed by Attending: Coverage Notice Comment: Reviewer: [id number] Espinosa Notice Issued Date-Time: 10/08/2019 12:50 Notice Type: Patient Choice Letter Notice Delivered To: Patient Relationship to Patient: Assistant Office Manager Name: Delivery Method: HAND - Hand Delivered Lisandra Days: Prior Verbal Notification: Recipient Understood Notice: Yes Recipient Signature: Yes Med Rec Note Co-signed by Attending: Coverage Notice Comment: inpatient rehab Reviewer: [id number] Espinosa Notice Issued Date-Time: 10/16/2019 8:30 Notice Type: IM Discharge Notice Notice Delivered To: Patient Relationship to Patient: Assistant Office Manager Name: Delivery Method: HAND - Hand Delivered Lisandra Days: Prior Verbal Notification: Recipient Understood Notice: Yes Recipient Signature: Yes Med Rec Note Co-signed by Attending: Coverage Notice Comment: IMM SERVED AND EXPLAINED Reviewer: [id number] Espinosa Notice Issued Date-Time: 10/16/2019 8:30 Notice Type: Patient Choice Letter Notice Delivered To: Patient Relationship to Patient: Assistant Office Manager Name: Delivery Method: HAND - Hand Delivered Lisandra Days: Prior Verbal Notification: Recipient Understood Notice: Yes Recipient Signature: Yes Med Rec Note Co-signed by Attending: Coverage Notice Comment: [place] Reviewer: [id number] Zeinab Espinosa Notice Issued Date-Time: 10/21/2019 10:15 Notice Type: IM Discharge Notice Notice Delivered To: Patient Relationship to Patient: Assistant Office Manager Name: Delivery Method: HAND - Hand Delivered Lisandra Days: Prior Verbal Notification: Recipient Understood Notice: Yes Recipient Signature: Yes Med Rec Note Co-signed by Attending: Coverage Notice Comment: Last DP export: 10/17/19 4:01 pm Patient Name: VIANEY GOLDSMITH Page [id number] at 1024 All edits/amendments must be made on the electronic document DICTATION DATE: 10/21/19 1024 PHOTOGRAPHY PROFESSOR: SOFI 10/21/19 1024 RPT#: [id number] DC DATE: STATUS: ADM IN [facility] [address] [place] [address] END OF REPORT
[2019-10-21] MEDS ORDERED: QUESTRAN PACKET PO (10:42)
[2019-10-21] MEDS ORDERED: FOLATE0.4 MG PO (10:42)
[2019-10-21] MEDS ORDERED: FLAGYL500 MG PO (10:42)
--- NOTE | 2019-10-21 11:00 | NUR ---
PT TO BE DC TO [facility] [place], PT HAMILTON PLACED ON 09/19/19, CHANGED CATHETER TODAY. PATIENT TOLERATED WELL, REQUESTED PAIN MEDICATION BEFORE DC, UNABLE TO ADMINISTER TOO EARLY AT THIS TIME. WILL CONTINUE WITH PLAN OF CARE
--- NOTE | 2019-10-21 12:18 | NUR ---
PT PICKED UP BY EMT, ADMINISTERED PRN PAIN MEDICATION BEFORE PT LEFT, CALLED REPORT TO [facility]. IV DC WITH CATHETER INTACT
--- NOTE | 2019-10-21 15:56 | MORECARE ---
CASE MANAGEMENT DISCHARGE SUMMARY PATIENT: VIANEY GOLDSMITH UNIT: [id number] ADM DATE: 09/17/19 AGE: 48 : 70 SEX: F ROOM/BED: D.2205 AUTHOR: ENEDINADOC PHYSICIAN: REFERRING PHYSICIAN: MARLENE RIBERA MD DATE OF SERVICE: 10/21/19 Discharge Plan Patient Name: VIANEY GOLDSMITH Facility: [facility]:[place] : 1970 Planned Disposition: Inpatient Rehab Anticipated Discharge Date: Discharge Date: 10/21/2019 Expected LOS: Initial Reviewer: [id number] Initial Review Date: 09/17/2019 Generated: 10/21/19 4:55 pm Comments DCP- Discharge Planning Updated by [email or web address]: Ericka Espinosa on 10/21/19 9:[address] Shawna with [facility] called and stated that she has acceptance. IMM served and explained. I called Binu & didn't get an answer I called patient's mother Vianey & she is aware of the discharge. Patient will be going via EMS. DCP- Discharge Planning Updated by [id number]: Ericka Espinosa on 10/17/19 3:[address] Shawna with [facility] called this morning to let me know that they are still waiting on auth from her insurance. They have accepted her clinically but waiting on Auth. I have updated her about all of this DCP- Discharge Planning Updated by [id number]: Ericka Espinosa on 10/16/19 8:[address] RECEIVED A CALL YESTERDAY FROM SHAWNA AT [facility], HE SAID THAT THE ADMIN DID NOT THINK THAT SHE WOULD DO WELL IN [place] THIS MORNING SHAWNA CALLED AND SAID THAT THEY REVIEWED THE NEW CLINICAL YESTERDAY THAT I SENT AND THEY WILL ACCEPT HER AND THEY HAD SUBMITTED FOR AUTH WITH, SHANELLE AND COVID HAS BEEN SENT OFF. THE PATIENT IS EXCITED I ATTEMPTED TO CALL HER MOTHER AND BINU, I DID NOT GET ANSWER. SIMONA SIGNED AND IMM ALSO SERVED AND EXPLAINED. CM WILL WAIT FOR THE SHANELLE AND COVID AND THE AUTH FROM INSURANCE. DCP- Discharge Planning Updated by [id number]: Ericka Espinosa on 10/15/19 5:[address] UPDATED CLINICALS SENT TO [facility] WILL CALL SHAWNA TO SEE IF HE HAD A CHANCE TO LOOK OVER PAPERWORK THIS AM. PER SPEECH AND PATIENT NURSE, SHE HAD A GREAT DAY YESTERDAY DCP- Discharge Planning Updated by [id number]: Ericka Espinosa on 10/14/19 11:[address] I SPOKE WITH SHAWNA WITH [facility], THEY DO ACCEPT HER INSURANCE, I HAVE SENT THE REFERRAL SHAWNA # [phone] FAX # [phone] DCP- Discharge Planning Updated by [id number]: Ericka Espinosa on 10/14/19 7:[address] [facility] DOES NOT ACCPET HER INSURANCE I WILL ATTEPMT [facility] DCP- Discharge Planning Updated by [id number]: Ericka Espinosa on 10/14/19 7:[address] I have contacted Vanessa, she does not have any facilities in [facility]. I have contacted [facility] in [place] ), to see if they take the patient's insurance DCP- Discharge Planning Updated by [id number]: Ericka Espinosa on 10/10/19 10:[address] RECEIVED CALL FROM ARIS FROM [facility] AND THEY DID NOT TAKE HER INSURANCE DCP- Discharge Planning Updated by [id number]: Ericka Espinosa on 10/10/19 8:[address] SPOKE TO MOTHER AND PATIENT AT LENGTH ABOUT WHAT THE PLAN AND WHAT PROGESS I HAVE MADE. CM WILL CONTINUE TO FOLLOW AND ASSSIT DCP- Discharge Planning Updated by [id number]: Ericka Espinosa on 10/10/19 8:[address] attempted to call the patient's mother to management instructor her an update on progress and was unsuccessful I did not get an answer DCP- Discharge Planning Updated by [email or web address]: Ericka Espinosa on 10/10/19 7:[address] spoke with Aris at [facility] about patient and they are reviewing her chart DCP- Discharge Planning Updated by [id number]: Ericka Espinosa on 10/09/19 1:[address] [facility] CALLED AND STATED THAT THEY ARE NOT IN NETWORK WITH HER INSURANCE I WILL SEND THE REFERRAL TO [facility] DCP- Discharge Planning Updated by [id number]: Ericka Espinosa on 10/09/19 11:[address] referral sent to [facility], I spoke with sana DCP- Discharge Planning Updated by [id number]: Ericka Espinosa on 10/08/19 2:[address] AFTER RECEIVING AUTH FROM [facility] I RECEIVED A CALL FROM [facility] THAT THEY WOULD NOT ACCEPT HER BECAUSE OF STAFFING AND QUESTION WITH FEEDS. MCKENNA VALERIE HAS SPOKEN TO THE PATIENT ABOUT THIS. A NEW REFERRAL WAS SENT TO [facility] JULIANA STATED THAT THEY WOULD TRANSFER THE AUTH TO [facility] IF THEY ACCEPT. CM TO FOLLOW AND ASSIST NEEDED DCP- Discharge Planning Updated by [id number]: Ericka Espinosa on 10/08/19 12:[address] patient will be discharging to inpatient rehab [facility] imm served and signed mom at bedside cm to follow and assist as needed DCP- Discharge Planning Updated by [id number]: Ericka Espinosa on 09/19/19 10:[address] Patient Name: VIANEY GOLDSMITH Admission Status: ER Accout number: [id number] Admission Date: 09-17-2019 : 1970 Admission Diagnosis: Attending: PETER Current LOS: 2 Anticipated DC Date: Planned Disposition: Inpatient Rehab Primary Insurance: [employer] Discharge Planning Comments: CM spoke with patients /ex- about discharge plan. He stated that they have built a 400x 12 ft cabin on her parents property where she can be independent with her care. She has a electric wheelchair, walker, scooter, service dog. Per her she started having seizures in 2013 after she had a stroke. He stated that her legs were very weak. He said that she did walk at home with her walker. He has made her cabin accessible for her with rails on her toilet. Her home address is [address] [place] [address] in [place] [address]. her cell number is [phone]. He would like her to go to inpatient rehab here at [facility]. He said he did not think that she would go to a fpc home. He would like her to go to [facility] after inpatient rehab if needed. CM will speak to patient to see what her plan is. Binu was very helpful and seem like he is a good support system for her. Aluminum Can Collector: Ericka Espinosa DCPIA - Discharge Planning Initial Assessment Updated by [id number]: Ericka Espinosa on 09/19/19 10:37 am * Is the patient Alert and Oriented? Yes * How many steps to enter\exit or inside your home? * PCP JANNETH * Preadmission Environment Home Alone * ADLs Partial Dependent * Partial ADLs (Assistance needed) Ambulation Medication Management Toileting * Equipment Bedside Commode Grab Bars Power Chair or Electric Scooter Rolling Walker Shower Chair Walker Wheelchair * Other Equipment SERVICE DOG * List name and contact numbers for known caregivers / representatives who currently or will assist patient after discharge: BINU GOLDSMITH- [phone] * Verbal permission to speak to the caregivers and representatives has been obtained from the patient. Yes * Additional services required to return to the preadmission environment? Yes * Has this patient been hospitalized within the prior 30 days at any hospital? Yes Coverage Notice Reviewer: [id number] Espinosa Notice Issued Date-Time: 10/08/2019 12:50 Notice Type: IM Discharge Notice Notice Delivered To: Patient Relationship to Patient: Parts Advisor Name: Delivery Method: HAND - Hand Delivered Lisandra Days: Prior Verbal Notification: Recipient Understood Notice: Yes Recipient Signature: Yes Med Rec Note Co-signed by Attending: Coverage Notice Comment: Reviewer: [id number] Espinosa Notice Issued Date-Time: 10/08/2019 12:50 Notice Type: Patient Choice Letter Notice Delivered To: Patient Relationship to Patient: Parts Advisor Name: Delivery Method: HAND - Hand Delivered Lisandra Days: Prior Verbal Notification: Recipient Understood Notice: Yes Recipient Signature: Yes Med Rec Note Co-signed by Attending: Coverage Notice Comment: inpatient rehab Reviewer: [id number] Espinosa Notice Issued Date-Time: 10/16/2019 8:30 Notice Type: IM Discharge Notice Notice Delivered To: Patient Relationship to Patient: Parts Advisor Name: Delivery Method: HAND - Hand Delivered Lisandra Days: Prior Verbal Notification: Recipient Understood Notice: Yes Recipient Signature: Yes Med Rec Note Co-signed by Attending: Coverage Notice Comment: IMM SERVED AND EXPLAINED Reviewer: [id number] Zeinab Espinosa Notice Issued Date-Time: 10/16/2019 8:30 Notice Type: Patient Choice Letter Notice Delivered To: Patient Relationship to Patient: Parts Advisor Name: Delivery Method: HAND - Hand Delivered Lisandra Days: Prior Verbal Notification: Recipient Understood Notice: Yes Recipient Signature: Yes Med Rec Note Co-signed by Attending: Coverage Notice Comment: TREVA MÁRQUEZ Reviewer: [id number] - Ericka Espinosa Notice Issued Date-Time: 10/21/2019 10:15 Notice Type: IM Discharge Notice Notice Delivered To: Patient Relationship to Patient: Parts Advisor Name: Delivery Method: HAND - Hand Delivered Lisandra Days: Prior Verbal Notification: Recipient Understood Notice: Yes Recipient Signature: Yes Med Rec Note Co-signed by Attending: Coverage Notice Comment: Last DP export: 10/21/19 9:24 am Patient Name: VIANEY GOLDSMITH Page [id number] at 1556 All edits/amendments must be made on the electronic document DICTATION DATE: 10/21/19 1555 EDITOR MANAGING DIRECTOR: SOFI 10/21/19 1555 RPT#: [id number] DC DATE:10/21/19 STATUS: DIS IN [facility] [address] [place] [address] END OF REPORT
[2019-10-22 21:06] LABS: OVA + PARASITE EXAM Final report (())
== END 2019-10-21 12:09 | DRG 64 ==
LOC: D.ER 04:09 → D.MS 07:07
PROVIDERS: Emergency Medicine; Family Medicine; Family Medicine Adult Medicine; Internal Medicine Hematology & Oncology; Internal Medicine Pulmonary Disease; Surgery; ADMIT Family Medicine; ATTEND Family Medicine
PROC: 0DH64UZ Insertion of Feeding Device into Stomach, Percutaneous Endoscopic Approach (ICD-10-PCS; principal; 2019-09-25 10:45)
DX: I63.511 Cerebral infarction due to unspecified occlusion or stenosis of right middle cerebral artery (principal); G93.6 Cerebral edema; J69.0 Pneumonitis due to inhalation of food and vomit; G81.94 Hemiplegia, unspecified affecting left nondominant side; F33.1 Major depressive disorder, recurrent, moderate; G40.409 Other generalized epilepsy and epileptic syndromes, not intractable, without status epilepticus; E87.6 Hypokalemia; D53.9 Nutritional anemia, unspecified; G60.0 Hereditary motor and sensory neuropathy; G71.00 Muscular dystrophy, unspecified; K74.60 Unspecified cirrhosis of liver; R00.0 Tachycardia, unspecified; E53.8 Deficiency of other specified B group vitamins